=== PATIENT | female | born 1975 | race Caucasian/White ===

== ENCOUNTER 2020-11-20 06:56 | Day surgery (SDC) | payer OTHER, SELFPAY ==
--- NOTE | 2020-11-11 16:02 | PCM.HP.BLA ---
History and Physical Date of Admission: 11/20/20 HPI: The patient is a 45 year old female presenting for pre-operative visit. She is scheduled for hysteroscopy with endometrial ablation, for menorrhagia on 11/20/20. Procedure discussed along with risks, benefits and complications. Other alternatives discussed for management. Consent form signed? Yes. ? ? PAST MEDICAL HISTORY No past medical history on file. ? ? PAST SURGICAL HISTORY No past surgical history on file. ? ? CURRENT MEDICATIONS Current Outpatient Medications Medication Sig Dispense Refill ? norethindrone (AYGESTIN) 5 mg tablet Take 1 tablet TID until bleeding stops, the BID x 3 days, the daily x 3 days. (Patient not taking: Reported on 11/11/2020 ) 35 tablet 0 ? No current facility-administered medications for this visit. ? ? ALLERGIES: Amoxicillin ? PERSONAL HISTORY: SOCIAL HISTORY Social History ? Tobacco Use ? Smoking status: Never Smoker ? Smokeless tobacco: Never Used Substance Use Topics ? Alcohol use: Not on file ? Drug use: Not on file ? FAMILY HISTORY: FAMILY HISTORY No family history on file. ? REVIEW OF SYMPTOMS: GENERAL: denies fevers or chills ENDOCRINOLOGY: has not been on steroids Cardiology : denies palpitations or chest pain Respiratory: denies SOB or cough Hematology: denies history of prolonged bleeding or easy bruising or VTE Allergy: Denies history of personal or family history of allergy to anesthesia ? PHYSICAL EXAMINATION: ? VITALS: Last menstrual period 09/04/2020. ? GENERAL: The patient is well nourished, well hydrated in no acute distress. , The patient is oriented to time, place, and person. NECK: Supple. No lynphadenopathy, normal thyroid, no thyromegaly. LUNGS: Clear to auscultation bilaterally. no wheezes, rhonchi or rales HEART: Regular rate and rhythm, Normal heart sounds and No murmurs or gallops ? IMPRESSION: menorrhagia ? PLAN: The risks/benefits/alternatives and personal involved for the planned hysteroscopy with endometrial ablation were reviewed with the patient. Her questions were answered to her satisfaction and she desires to proceed. Consent was signed. I reviewed with her postop instructions and expectations. ? ? I have reviewed and updated past medical and surgical history, medications and allergies Assessment & Plan Assessment/Plan (1) Menorrhagia:
[2020-11-20 07:36] LABS: Hematocrit 42.9 % (37-47); Hemoglobin 14.6 g/dL (12.0-15.0); Mean Corpuscular Hgb 31.5 pg (27.0-32.0); Mean Corpuscular Volume 92.7 fL (81-99); Mean Platelet Vol. 11.3 fl (6.2-12.0); Platelet Count 223 K/mm3 (150-450); RBC Distribution Width CV 11.9 % (11.6-14.6); RBC Distribution Width SD 41.1 fl (35.1-43.9); Red Blood Count 4.63 M/mm3 (4.2-5.4); White Blood Count 7.6 K/mm3 (4.4-11.0)
[2020-11-20 07:38] VITALS: BP 129/75; PULSE 86; RESP 18; TEMP 36.6; O2SAT 99; BMI 34.7
[2020-11-20 07:38] LABS: Internal QC Validated? YES +Cl - CLEAR BKGD; Pregnancy, Urine Negative Negative
[2020-11-20] MEDS: Lactated Ringers 1,000 ML 100 ML IV (07:45)
--- NOTE | 2020-11-20 08:34 | PCM.OPRPT ---
Problems Associated Problem List Diagnoses (1) Menorrhagia: Report of Operation Date of Procedure: 11/20/20 Pre-Operative Diagnosis: menorrhagia Post-Operative Diagnosis: same Surgery/Procedure Performed:: Hysteroscopy with endometrial ablation with Gricel device Description of Surgical Findings:: Normal vagina, normal cervix, normal endometrial cavity. Surgeon: Rayna Sadler automatic corn grinder operator: arthur valdez Type of Anesthesia: MAC/Supplemental/Local Anesthesiologist: Tim Ledezma Special Medications: none Specimen's removed: none Drains: none Estimated Blood Loss (mL): 10 Fluids Replaced: 700 Description of Procedure: The patient was taken to the OR where she was prepped and draped in dorsal lithotomy position. The weighted speculum was placed in the vagina and the anterior lip of the cervix was grasped with a single-tooth tenaculum. A paracervical block was administered with [1% lidocaine with 1-100,000 epinephrine solution]. The cervix was dilated serially with Hegar dilators. The [5mm] hysteroscope was placed into the uterine cavity and the above findings were noted. Bilateral tubal ostia [were] identified. The uterus sounded to 8.5cm and the cervical length was 3.5cm. The endometrial cavity length was [5]cm. The hysteroscope was removed. The Gricel device was set to [5]cm. The instrument was then seated into the endometrial cavity and the indicator was in the green. The cervical seal balloon was inflated and the uterine integrity test was passed. The ablation procedure was initiated and completed without interruption. During the ablation procedure gentle traction was held on the tenaculum and the Gricel device was held up against the uterine fundus. When the ablation procedure was completed the Gricel was removed. The tenaculum was removed and the tenaculum site was noted to be hemostatic. All sponge and needle counts were correct. A vaginal sweep was performed by me. The patient was awakened and taken to the recovery room in stable condition. Hysteroscopic ins: 100cc normal saline Hysteroscopic outs:50cc Findings: Grafts/Implants Used: none Procedure Start Time: 08:46 Procedure Stop Time: 08:55 Complications none Admit VTE Documentation VTE Present on Admission: No VTE Mechan Device Prophylaxis: SCD's VTE Pharm Prophylaxis ordered?: No Reason prophylaxis not ordered:: Procedure Not Indicated
[2020-11-20] MEDS: Lidocaine 1%/Epi 1:200 (30ml) 30 ML AMPUL (08:46)
--- NOTE | 2020-11-20 08:57 | PCM.DC ---
Discharge Instructions Diet Discharge Diet: No restrictions Activity May resume sexual activity in: 2 weeks Lifting Restrictions: none Dressing / Incision Call your doctor if your incision/area has: Sudden Increased Bleeding and Foul Smelling Discharge Call your doctor if you observe: Fever of 101 or Higher and Using more than 1 pad per hour (for 2 hrs in a row) Additional Dressing/Incision Instructions:: You can use ibuprofen or acetaminophen as needed for pain control. Use a heating pad to the lower abdomen as needed for pain. Follow Up Care Please Follow Up With: Rayna Sadler MD When: 2-4 weeks or as needed. Call [phone] to make an appointment or with any concerns. Test Results: Test results from this visit will be discussed in further detail at your follow-up appointment, if applicable. Discharge Plan Admission Primary Reason for Your Visit: Endometrial ablation Attending Provider: Rayna Sadler Primary Care Provider: Luz Mcgraw Discharge Orders/Prescriptions Prescriptions: Continued multivitamin Capsule 3 cap PO DAILY RF: 0 Probiotic 1 tab DAILY RF: 0 Referrals / Follow Up: Luz Mcgraw MD [Primary Care Provider] - Disposition Disposition (needs filled in before D/C Order can be placed): Home, Self Care
[2020-11-20 09:04] VITALS: BP 121/70; BP 129/75; PULSE 89; RESP 16; TEMP 36.7; O2SAT 96
[2020-11-20 09:10] VITALS: BP 111/81; BP 129/75; PULSE 89; RESP 16; O2SAT 95
[2020-11-20 09:15] VITALS: BP 121/84; BP 129/75; PULSE 79; RESP 16; O2SAT 95
[2020-11-20 09:20] VITALS: BP 127/78; BP 129/75; PULSE 81; RESP 16; TEMP 36.4; O2SAT 97
[2020-11-20 10:00] VITALS: BP 129/75
[2020-11-20] MEDS: Acetaminophen 500 MG Tablet 1000 MG PO (10:01)
== END 2020-11-20 10:10 | disposition home or self-care (01) ==
LOC: SDC 06:57 → AC 06:59
PROVIDERS: PCP Internal Medicine; Referring Provider Obstetrics & Gynecology; Visit Provider Obstetrics & Gynecology
PROC: 0U5B8ZZ Destruction of Endometrium, Via Natural or Artificial Opening Endoscopic (ICD-10-PCS; CPT 58558; principal; 2020-11-20 08:15)
DX: N92.0 Excessive and frequent menstruation with regular cycle (principal)
CPT/HCPCS: 00952; 58563; 81025; 85027; J7120; J2405

== ENCOUNTER 2021-08-17 10:17 | Outpatient (CLI) | payer OTHER, SELFPAY ==
--- NOTE | 2021-08-17 10:27 | US_ITS ---
STUDY: RENAL ULTRASOUND - COMPLETE REASON FOR EXAM: Female, 45 years old. UTI TECHNIQUE: Ultrasound evaluation of the kidneys was performed with real-time and static cates-scale imaging. COMPARISON: None. FINDINGS: RIGHT KIDNEY: Normal location of the right kidney, which is normal in size. The right kidney measures 11.5 cm. There is a normal cortex of the right kidney. The renal cortex measures 2.2 cm. There is no right renal mass or cyst. There are no right renal calculi. There is no right hydronephrosis. DISTAL RIGHT URETER: There is non-visualization of the distal right ureter. There is no demonstrated right ureterovesical junction calculus. There is a visualized right ureteral jet. LEFT KIDNEY: Normal location of the left kidney, which is normal in size. The left kidney measures 11.4 cm. There is a normal cortex of the left kidney. The renal cortex measures 1.5 cm. There is no left renal mass or cyst. There are no left renal calculi. There is no left hydronephrosis. DISTAL LEFT URETER: There is non-visualization of the distal left ureter. There is no demonstrated left ureterovesical junction calculus. There is a visualized left ureteral jet. BLADDER: The distended urinary bladder has a volume of 156 ml. There is a normal wall thickness of the distended urinary bladder. There is no demonstrated mass within the urinary bladder. There are no demonstrated bladder calculi. US/Kidney and Bladder IMPRESSION: Normal ultrasound of the kidneys and urinary bladder. Electronically Signed: Jarrell Burrell DO at 16:50 EDT ,
== END 2021-08-17 23:59 | disposition home or self-care (01) ==
LOC: US 10:19
PROVIDERS: PCP Internal Medicine; Referring Provider Urology; Visit Provider Urology
DX: N39.0 Urinary tract infection, site not specified (principal)
CPT/HCPCS: 76770

== ENCOUNTER 2021-11-12 06:05 | Day surgery (SDC) | payer OTHER, SELFPAY ==
--- NOTE | 2021-11-11 15:08 | SUR.PREOP ---
spoke to Hanny at Dr Dugan office. She states that patient is not having Danny-C with procedure on 11/12/21
[2021-11-12 06:30] LABS: Internal QC Validated? YES +Cl - CLEAR BKGD; Pregnancy, Urine Negative Negative
[2021-11-12 06:48] VITALS: BP 135/82; PULSE 73; RESP 16; TEMP 36.6; O2SAT 100; BMI 32.9
[2021-11-12] MEDS: Lactated Ringers 1,000 ML 15 ML IV (06:54)
--- NOTE | 2021-11-12 07:30 | BLB_PTH ---
PATIENT: SHANNON LEYVA LOC: [facility] – [place] U#:[id number] AGE/SX: 46/F ROOM: RE11/12/[address]: Dr. Gwendolyn Snow MD : 1975 BED: DIS: 11/12/2021 SPEC #: [id number] RECD: 11/12/21 11:06 STATUS: MARTIN HELTON #: [id number] MARTA: 11/12/21 07:[address]: Gwendolyn Snow DEPT: SURGICAL PATHOLOGY RECD BY: Melvina Andrade ENTERED: 11/12/21 12:57 SP TYPE: TURB OTHR DR: Dr. Luz Mcgraw MD Tissues: Urinary bladder, NOS Procedures: Surgery Specimen Level V HEADER OPERATION: Cysto, biopsy bladder tumor, fulguration PRE-OP DIAGNOSIS: Neoplasm of bladder TISSUE SUBMITTED: Bladder tumor MICROSCOPIC DIAGNOSIS Bladder tumor, transurethral resection: Fragments of urothelial mucosa with focal squamous metaplasia and changes suggestive of squamous papilloma. Negative for atypia or malignancy. See comment. JOSÉ MIGUEL:barry 11/13/2021 COMMENT Correlation with clinical, cystoscopy findings and appropriate follow up are necessary. MICROSCOPIC DESCRIPTION Slides are reviewed. GROSS DESCRIPTION Received in fixative is one container labeled with the patient's name and designated bladder tumor. The specimen consists of two fragments each measuring 0.2 x 0.2 x 0.1 cm. The specimen is totally submitted in one cassette. / JOSÉ MIGUEL:barry 11/12/2021 TC:1 CPT:79498
[2021-11-12] MEDS: Cefazolin 2 GM in 0.9% Normal Saline 100 ML IV (07:50)
[2021-11-12 08:15] VITALS: BP 112/65; BP 135/82; PULSE 80; RESP 16; TEMP 36.6; O2SAT 94
--- NOTE | 2021-11-12 08:19 | DCINST_ITS ---
Discharge Instructions Diet Discharge Diet: No restrictions Activity Discharge Activity: Return to Normal Activity May resume sexual activity in: No Restrictions Dressing / Incision Call your doctor if you observe: Fever of 101 or Higher, Inability to urinate and Inability to have a bowel movement Follow Up Care Please Follow Up With: Gwendolyn Snow MD When: Call office for appointment to be seen next week Test Results: Test results from this visit will be discussed in further detail at your follow- up appointment, if applicable. Discharge Plan Admission Attending Provider: Gwendolyn Snow Primary Care Provider: Luz Mcgraw Discharge Orders/Prescriptions Prescriptions: New oxycodone-acetaminophen [oxycodone-acetaminophen] 5-325 mg tablet 2 tab PO Q8H PRN PRN (Reason: Pain) 2 Days Qty: 6 0RF cephalexin [cephalexin] 500 mg capsule 500 mg PO Q12 3 Days Qty: 6 0RF phenazopyridine [Pyridium] 200 mg tablet 200 mg PO TID PRN PRN (Reason: Bladder Spasms) 7 Days Qty: 30 0RF Continued multivitamin Capsule 3 cap PO DAILY Probiotic 1 tab DAILY cephalexin 250 mg capsule 250 mg PO PRN PRN (Reason: AFTER INTERCOURSE) Label Comments: TAKE 1 CAPSULE BY MOUTH ONCE DAILY IMMEDIATELY AFTER INTERCOURSE FOR 90 DAYS ivermectin [Soolantra] 1 % Cream 1 applic TOPICAL BID Winlevi 1 % Cream 1 applic TOPICAL BID Referrals / Follow Up: Luz Mcgraw MD [Primary Care Provider] - Disposition Disposition (needs filled in before D/C Order can be placed): Home, Self Care
--- NOTE | 2021-11-12 08:22 | PCM.OPRPT ---
Report of Operation Date of Procedure: 11/12/21 Pre-Operative Diagnosis: Bladder lesion of uncertain malignant potential Post-Operative Diagnosis: Same Surgery/Procedure Performed:: Cystoscopy with biopsy and fulguration Surgeon: Gwendolyn Snow Type of Anesthesia: General Specimen's removed: Bladder biopsy x2 Description of Procedure: The patient is a 46-year-old female who was evaluated with cystoscopy for urinary tract infections and found to have an area of white mucosal change consistent with possible squamous metaplasia. She now presents for biopsy for further evaluation. Informed consent has been obtained. The patient was taken to the operating room and placed on the operating room table. Anesthesia monitored the head, neck, airway, IV access and vital signs throughout the case. Once anesthesia was appropriate ministered the patient was placed into dorsal lithotomy position was prepped and draped in usual sterile fashion. The cystoscope was inserted through the urethra under direct visualization into the urinary bladder. The area of concern on the trigone just medial to the right ureteral orifice was once again identified. It is approximately 5 mm in size. This area was removed via flexible biopsy forceps. An area approximately 1 cm away towards the left ureteral orifice was minimally irregular and this area was biopsied as well. Both areas were fulgurated for hemostatic control and tissue treatment. The patient's bladder was then emptied and the case was terminated. She was awakened and taken to the recovery room in good condition. There were no complications during this procedure. Grafts/Implants Used: None Complications None Admit VTE Documentation VTE Present on Admission: Yes VTE Mechan Device Prophylaxis: SCD's VTE Pharm Prophylaxis ordered?: No Reason prophylaxis not ordered:: Treatment Not Indicated
[2021-11-12 08:30] VITALS: BP 108/66; BP 135/82; PULSE 75; RESP 16; O2SAT 98
[2021-11-12] MEDS: Phenazopyridine 95 MG Tablet 190 MG PO (08:37)
[2021-11-12 08:44] VITALS: BP 114/77; BP 135/82; PULSE 69; RESP 16; TEMP 36.4; O2SAT 98
[2021-11-12 09:35] VITALS: BP 122/70; BP 135/82; PULSE 74; RESP 18; TEMP 36.8; O2SAT 100
== END 2021-11-12 09:53 | disposition home or self-care (01) ==
LOC: SDC 06:05 → AC 06:06
PROVIDERS: Anesthesiology; PCP Internal Medicine; Referring Provider Urology; Visit Provider Urology
PROC: 0TBB8ZX Excision of Bladder, Via Natural or Artificial Opening Endoscopic, Diagnostic (ICD-10-PCS; CPT 52250; principal; 2021-11-12 07:20)
DX: N32.89 Other specified disorders of bladder (principal); N39.46 Mixed incontinence; N81.6 Rectocele; R35.1 Nocturia; Z87.440 Personal history of urinary (tract) infections
CPT/HCPCS: 52204; 81025; 88307; J7120; J2405

== ENCOUNTER → 2024-03-19 | Outpatient (CLI) | payer OTHER, SELFPAY ==
[2024-03-19 13:26] LABS: Vitamin B12 591 pg/mL (211-911); Vitamin D,25 Hydroxy 16.6 ng/mL
[2024-03-19 13:52] LABS: ALB/GLOB Ratio 0.9 RATIO (0.9-2.4); AST(SGOT) 20 U/L (15-37); Alanine Aminotransfer ALT/SGPT 33 U/L (13-56); Albumin, Serum 3.6 g/dL (3.2-5.0); Alkaline Phosphatase 98 U/L (45-117); Anion Gap 6 (5-15); BUN 8 mg/dL (7-18); BUN/Creat Ratio 11.6 RATIO (10-20); Calcium,Total 9.3 mg/dL (8.5-10.1); Chloride 106 mmol/L (98-107); Creatinine, Serum 0.69 mg/dL (0.55-1.02); EST Glomerular Filtration Rate 96 mL/min (>60); Est Glom Filt Rate - Afr Amer 117 mL/min (>60); Glucose 105 mg/dL (74-106); Potassium 4.1 mmol/L (3.5-5.1); Protein, Total 7.6 g/dL (6.4-8.2); Sodium Level 138 mmol/L (136-145); T4 Free Direct 1.06 ng/dL (0.76-1.46)
== END | disposition home or self-care (01) ==
PROVIDERS: PCP Internal Medicine; Referring Provider Nurse Practitioner Family; Visit Provider Nurse Practitioner Family
DX: N39.0 Urinary tract infection, site not specified (principal); Z12.31 Encounter for screening mammogram for malignant neoplasm of breast; N95.1 Menopausal and female climacteric states; Z13.29 Encounter for screening for other suspected endocrine disorder; Z13.21 Encounter for screening for nutritional disorder
CPT/HCPCS: 36415; 80053; 82306; 82607; 84439; 84443; 87086; 87088; 87186

== ENCOUNTER → 2024-04-13 | Outpatient (CLI) | payer OTHER, SELFPAY ==
--- NOTE | 2024-04-13 09:30 | BI_ITS ---
MAMMOGRAPHY - BILATERAL SCREENING REASON FOR EXAM: Female, 48 years old. Routine annual screening examination. PERTINENT HISTORY: Non-contributory. TECHNIQUE: Digital bilateral breast andree (3D mammographic acquisition) in the CC and MLO projections. 2-D mediolateral oblique (MLO) and craniocaudad (CC) views of both breasts were obtained. CAD: Full Field Digital Mammography with Computer Added Detection was performed. COMPARISON: Comparison is made with prior outside examination August 12, 2022. FINDINGS: Breast Composition: There are scattered areas of fibroglandular density. There are no dominant masses or suspicious calcifications. Stable benign-appearing bilateral axillary nodes. No other significant abnormalities are identified. There has been no significant change since the prior study. BI/SCRN MAMM (CAD)W/ANDREE BILAT IMPRESSION: Stable bilateral screening mammogram. Yearly follow-up mammogram recommended. (A) ASSESSMENT CATEGORY: BIRADS Category 2: Benign. A letter regarding these results will be sent to the patient by the facility within 30 days. Approximately 10% of breast cancers are not detected by mammography. A normal mammogram should not delay biopsy of a clinically suspicious abnormality. [id number] Electronically Signed: Reyes Magana MD at 12:26 EST ,
== END | disposition home or self-care (01) ==
PROVIDERS: Referring Provider Nurse Practitioner Family; Visit Provider Nurse Practitioner Family
DX: Z12.31 Encounter for screening mammogram for malignant neoplasm of breast (principal)
CPT/HCPCS: 77063; 77067

== ENCOUNTER → 2025-04-09 | Outpatient (CLI) | payer OTHER, SELFPAY ==
--- NOTE | 2025-04-09 13:03 | US_ITS ---
PROCEDURE: PELVIC W/ TRANSVAGINAL REASON FOR EXAM: PELVIC PAIN Post endometrial ablation. TECHNIQUE: Procedure Code: [id number] Modality: US Procedure: PELVIC W/ TRANSVAGINAL COMPARISON: None FINDINGS: Measurements: Uterus: 9.2 cm x 6.6 cm x 5 cm with a volume of 159.1 mL Endometrial Thickness: 9 mm. It is hyperechoic. Right Ovary: 4.3 cm x 2.1 cm x 2.4 cm with a volume of 11.6 mL. Left Ovary: 3 cm x 2.7 cm x 2.5 cm with a volume of 10.5 mL. TRANSABDOMINAL: Uterus: Heterogeneous echotexture of the uterus. There is a 1.4 cm 1.5 cm 1.9 cm fundal fibroid. Multiple small nabothian cysts are seen. Endometrium: 9 mm. It is hyperechoic Right ovary: Dominant follicle in the right ovary. Left ovary: Normal size and echotexture. Other: No large pelvic mass identified. Transvaginal sonography was performed to better visualize the endometrium. TRANSVAGINAL: Uterus: Anteverted. Fibroid uterus. Endometrium: Normal echotexture. Right ovary: Dominant follicle. Left ovary: Normal size and echotexture. Other adnexal findings: None. Cul-de-sac: No free intraperitoneal fluid identified. Tenderness: No tenderness US/Pelvic w/ Transvaginal IMPRESSION: Fibroid uterus. Dominant follicle is seen in the right ovary. Reading Location: [id number]
== END | disposition home or self-care (01) ==
LOC: US 12:57
PROVIDERS: Referring Provider Nurse Practitioner Family; Visit Provider Nurse Practitioner Family
DX: R10.20 Pelvic and perineal pain unspecified side (principal)
CPT/HCPCS: 76830; 76856

== ENCOUNTER → 2025-04-15 | Outpatient (CLI) | payer OTHER, SELFPAY ==
--- NOTE | 2025-04-15 10:30 | BI_ITS ---
EXAM: SCRN MAMM (CAD)W/ANDREE BILAT DATE: 04/15/2025 CLINICAL HISTORY: F, Age 49 y/o , SCREEN FOR BREAST CNACER TECHNIQUE: Procedure Code: [id number] Modality: MG Procedure: SCRN MAMM (CAD)W/ANDREE BILAT COMPARISON: Prior exam(s) were compared FINDINGS: TISSUE DENSITY: The breasts are heterogeneously dense, which may obscure small masses. Bilateral Breast Mammographic Findings: No significant masses, calcifications or other abnormalities are identified. BI/SCRN MAMM (CAD)W/ANDREE BILAT IMPRESSION: No mammographic evidence of malignancy in either breast. OVERALL FINAL ASSESSMENT BI-RADS 1: NEGATIVE.. RECOMMENDATION: Routine annual follow-up in 1 Year Additional Recommendation none A letter with findings and recommendations will be mailed to the patient. Reading Location: [id number]
--- OUTSIDE RECORDS SUMMARY | 2025-04-15 11:41 | XMS RPT_ITS | CCD ---
Author Organization [facility] [place] [facility] Care Team Providers Care Feed Mill Supervisor Name Role Phone [place]out [place], Luz S Unavailable Unavailable Trout Creek, Luz S Unavailable Unavailable Trout [place], Luz S Unavailable Unavailable [place]out [place], Luz S Unavailable Unavailable [place]out [place], Luz S Unavailable Unavailable [place]out [place], Luz S Unavailable Unavailable [place]out [place], Luz S Unavailable Unavailable [place]out [place], Luz S Unavailable Unavailable [place], Luz S Unavailable Unavailable Etienne, Alivia Unavailable Unavailable [place], Luz S Unavailable Unavailable Etienne, Alivia Unavailable Unavailable [place], Luz S Unavailable Unavailable [place]out [place], Luz S Unavailable Unavailable [place]out [place], Luz S Unavailable Unavailable [place]out [place], Luz S Unavailable Unavailable [place], Luz S Unavailable Unavailable [place]out [place], Luz S Unavailable Unavailable [place]out [place], Luz S Unavailable Unavailable [place], Luz S Unavailable Unavailable Thomae, Mega R Unavailable Unavailable Bocanegra, Lida C Unavailable Unavailable [place], Luz S Unavailable Unavailable Bocanegra, Lida C Unavailable Unavailable Etienne, Alivia Unavailable Unavailable Etienne, Alivia Unavailable Unavailable [place]out [place], Luz S Unavailable Unavailable Etienne, Alivia Unavailable Unavailable Etienne, Alivia Unavailable Unavailable [place], Luz S Unavailable Unavailable Bocanegra, Lida C Unavailable Unavailable [place], Luz S Unavailable Unavailable Thomae, Mega R Unavailable Unavailable [place], Luz S Unavailable Unavailable Unavailable Primary Care Provider Unavailabl e Trout [place], Luz Unavailable Katja James Unavailable Unavailable Bhavin Cody Unavailable Unavailable [place], Luz S Unavailable Jai Fuentes Unavailable Unavailable Unavailable Mr. Jai Fuentes Referring Unavail able Gina, Mr. Jai Linda Attending Unavail able Gina, Mr. Jai Linda Primary Care Unavail able Unavailable Primary Care Provider Unavailhawa e SHANNON HULL Attending Unavailable SHANNON HULL Referring Unavailable Newbill PA-C, Jai M Primary Care Provider Newbill PA-C, Jai M Unavailable Newbill PA-C, Jai M Unavailable Lenka MILITARY EQUIPMENT SPECIALIST-TIRE MECHANIC, Nila B Primary Care Provider LENKA, NILA B Attending Unavailable LENKA, NILA B Primary Care Unavailable LENKA, NILA B Primary Care Unavailable Lenka MILITARY EQUIPMENT SPECIALIST-TIRE MECHANIC, Nila B Primary Care Provider Lenka MILITARY EQUIPMENT SPECIALIST-TIRE MECHANIC, Nila B Unavailable Lenka MILITARY EQUIPMENT SPECIALIST-TIRE MECHANIC, Nila B Unavailable Lenka MILITARY EQUIPMENT SPECIALIST-TIRE MECHANIC, Nila B Primary Care Provider LENKA, NILA B Primary Care Unavailable BHAVIN CODY Attending Unavailable LENKA, NILA B Primary Care Unavailable BHAVIN CODY Attending Unavailable JAI FUENTES M Primary Care Unavailable ADELSO CULVER Attending Unavailable Care Physician, No Primary Primary Care Provider Unavailable Gwendolyn DELATORRE, Dr. Snow Attending Provider Care Physician, No Primary Referring Provider Un available Ayala Heart Attending Unavailable Care Physician, No Primary Primary Care Unava ilable Care Physician, No Primary Referring Unava ilable Ayala Heart Attending Unavailable Ayala Heart Referring Unavailable Care Physician, No Primary Primary Care Unava ilable Ayala Heart Attending Unavailable Ayala Heart Referring Unavailable Care Physician, No Primary Primary Care Unava ilable Gwendolyn Snow Attending Unavailable Care Physician, No Primary Primary Care Unava ilable Care Physician, No Primary Referring Unava ilable Ayala Heart Attending Unavailable Care Physician, No Primary Referring Unava ilable Care Physician, No Primary Primary Care Unava ilable Gwendolyn Snow Attending Unavailable Care Physician, No Primary Referring Unava ilable Care Physician, No Primary Primary Care Unava ilable Allergies Allergy Classification Reported Allergen(s) Allergy Type Date of Onset Reaction(s) Facility (20 sources) amoxicillin; Translations: [amoxicillin] Drug Allergy 8 [facility] Repository (4 sources) Penicillins Itching [facility] (4 sources) Amoxicillin; Translations: [Amoxicillin TABS] Drug Allergy [facility] Work Phone: (7 sources) NITROFURANTOIN, MACROCRYSTALS / Nitrofurantoin, Monohydrate; Translations: [NITROFURANTOIN MONOHYD/M-CRYST] Drug Allergy 4 Itching [facility] (1 source) Nitrofurantoin Drug Allergy [address] [facility] (1 source) Nitrofurantoin Drug Allergy 5 [facility] Repository Medications Current Medications Medication Drug Class(es) Dates Sig (Normalized) Sig (Original) [id number] 200 actuat albuterol 0.09 mg/actuat metered dose inhaler (5 sources) beta2-Adrenergic Agonist Start: 04-04-2024 End: 04-04-2025 take 2 puff(s) by inhalation every six hours for wheezing albuterol 90 mcg/actuation inhaler Indications: Acute bronchitis, unspecified organism Inhale 2 puffs every 6 hours if needed for wheezing. 18 g 04/04/2024 04/04/2025 Active Start: 09-05-2007 take 2 puff(s) by in halation every four hours as needed ALBUTEROL 90 MCG/ACTUATION AEROSOL INHALER Indications: Unspecified disease of respiratory system Two puffs every 4 hours as needed. 1 0 09/05/2007 Active Comment on above: Two puffs every 4 ho urs as needed. ascorbic acid 500 mg oral capsule (1 source) Vitamin C Start: 025 Ascorbic Acid (Vitamin C) 500 mg capsule Active mg PO January 15, 2025 12:00am azithromycin 250 mg oral tablet (4 sources) Macrolide Antimicrobial Start: 024 azithromycin (Zithromax Z-Michael) 250 mg tablet Indications: Acute bronchitis, unspecified organism Take 2 tablets by mouth at once on day 1, then 1 tablet once a day on days 2-5. Take with a meal. 6 tablet 03/29/2024 Active benzonatate 100 mg oral capsule (4 sources) Non-narcotic Antitussive Start: take 1-2 capsules by mouth every eight hours for cough benzonatate (Tessalon) 100 mg capsule Indications: Acute bronchitis, unspecified organism Take 1-2 capsules (100-200 mg) by mouth every 8 hours if needed for cough. Do not crush or chew. 60 capsule 03/29/2024 Active biotin 10 mg oral capsule (1 source) Start: Biotin 10,000 mcg capsule Active ug PO January 15, 2025 12:00am brompheniramine maleate 0.4 mg/ml / dextromethorphan hydrobromide 2 mg/ml / pseudoephedrine hydrochloride 6 mg/ml oral solution (3 sources) alpha-Adrenergic Agonist, Uncompetitive S-qqqlui-F-aspartate Receptor Antagonist, Sigma-1 Agonist Start: take 5 mL by mouth every four hours for cough brompheniramine-pse udoeph-DM (Bromfed DM) 2-30-10 mg/5 mL syrup Indications: Acute bronchitis, unspecified organism Take 5 mL by mouth every 4 hours if needed for allergies, congestion or cough. 120 mL 04/04/2024 Active cephalexin 250 mg oral capsule (16 sources) Cephalosporin Antibacterial Start: take 1 capsule by mouth at bedtime Cephalexin 250 mg capsule Active 250 mg PO AT BEDTIME January 15, 2025 12:00am Start: 06-01-2022 take 1 capsule by mo ut three times daily cephALEXin (KEFLEX) 500 mg capsule Take 500 mg by mouth three times daily. 0 06/01/2022 Active Start: 11-12-2021 End: 03-19-2024 take 1 capsule by mouth every twelve hours Cephalexin 500 mg capsule Discontinued 500 mg PO EVERY 12 HOURS 6 3 0 November 12, 2021 12:00am March 19, 2024 11:03am post-operative Start: 11-02-2021 End: 03-19-2024 Cephalexin 250 mg capsule Discontinued 250 mg PO NEEDED as needed for AFTER INTERCOURSE November 02, 2021 12:00am March 19, 2024 11:03am take 1 capsule by mo uth every twenty-four hours as needed cephalexin (Keflex) 250 mg capsule Take 1 capsule (250 mg) by mouth once daily as needed (preventative for UTI). Active Comment on above: Take 500 mg by mouth three times daily. Take 250 mg by mouth four times daily. cholecalciferol 0.025 mg oral capsule (6 sources) Vitamin D Start: 01-16-20 take 1 capsule by mouth once daily Cholecalciferol (Vitamin D3) 25 mcg (1,000 unit) capsule Active 25 ug PO daily January 15, 2025 12:00am Start: 06-17-2022 VITAMIN D 25 m cg (1,000 unit) cap Start: 03-22-2022 take 1 capsule by mouth once d aily Vitamin D (Cholecalciferol) 25 MCG (1000 UT) Oral Capsule TAKE 1 CAPSULE BY MOUTH EVERY DAY Quantity: 90 Refills: 3 Ordered: 22-Mar-2022 Jai Fuentes PA-C Start : 22-Mar-2022 Active Clascoterone (2 sources) Start: 11-02-2021 Clascoterone ( Winlevi) 1 % Cream Active 1 NMA TOPICAL TWICE A DAY November 02, 2021 12:00am Start: 11-02-2021 Clascoterone ( Winlevi) 1 % Cream Active 1 APPLIC TOPICAL TWICE A DAY November 02, 2021 12:00am clascoterone (Winlevi) 1 % c ream (7 sources) clascoterone (Wi nlevi) 1 % cream Apply topically 2 times a day. Active clascoterone (Wi nlevi) 1 % cream Apply topically 2 times a day. 0 Active D-Mannose (1 source) Start: 01-15-2025 take 1 capsule by mouth once D-Mannose 500 mg capsule Active mg PO January 15, 2025 12:00am dextromethorphan hydrobromide 3 mg/ml / promethazine hydrochloride 1.25 mg/ml oral solution (4 sources) Phenothiazine, Uncompetitive G-qsiknt-V-aspartat e Receptor Antagonist, Sigma-1 Agonist Start: 03-29-2024 take 5 mL by mouth every six hours for cough promethazine-DM (Phenergan-DM) 6.25-15 mg/5 mL syrup Indications: Acute bronchitis, unspecified organism Take 5 mL by mouth every 6 hours if needed for cough. *caution - can cause drowsiness* 120 mL 03/29/2024 Active doxycycline monohydrate 100 mg oral tablet (2 sources) Tetracycline-class Drug Start: 08-08-2024 End: 08-15-2024 take 1 tablet by mouth twice daily doxycycline (Adoxa) 100 mg tablet Indications: Acute non-recurrent maxillary sinusitis Take 1 tablet (100 mg) by mouth 2 times a day for 7 days. Take with a full glass of water and do not lie down for at least 30 minutes after 14 tablet 08/08/2024 08/15/2024 Active Start: 04-06-2024 End: 04-13-2024 doxycycline (Vibramycin) 100 mg capsule Indications: Bronchitis Take 1 capsule (100 mg) by mouth 2 times a day for 7 days. Take with at least 8 ounces (large glass) of water, do not lie down for 30 minutes after 14 capsule 04/06/2024 04/13/2024 Active estradiol 0.1 mg/ml vaginal cream (5 sources) Estrogen Start: 01-15-2025 Estradiol 0.01 % (0.1 mg/gram) cream Active 1 g VAGINAL 3 TIMES A WEEK 42.5 3 January 15, 2025 8:24am Start: 01-15-2025 End: 01-15-2025 Estradiol 0.01 % (0.1 mg/gra m) cream Discontinued 1 VAGINAL 3 TIMES A WEEK January 15, 2025 12:00am January 15, 2025 8:24am Start: 03-28-2024 estradiol (Est race) 0.01 % (0.1 mg/gram) vaginal cream Insert 0.5 Applicatorfuls (2 g) into the vagina once daily. 03/28/2024 Active fluconazole 150 mg oral tablet (3 sources) Azole Antifungal Start: 12-08-2024 End: 12-12-2024 fluconazole (Diflucan) 150 mg tablet Indications: Acute cystitis with hematuria Take 1 tablet (150 mg) by mouth every 3 days for 2 doses. 2 tablet 12/08/2024 12/12/2024 Active Start: 06-18-2022 fluconazole (D IFLUCAN) 150 mg tablet Indications: Yeast vaginitis Take 1 tablet by mouth as directed. take one, repeat in 3 days as needed for yeast infections 4 tablet 2 06/18/2022 Active Comment on above: Take 1 tablet by brisa th as directed. take one, repeat in 3 days as needed for yeast infections ivermectin 10 mg/ml topical cream (16 sources) Antiparasitic, Pediculicide Start: 03-19-2024 Ivermectin (Soolantra) 1 % cream Active 1 NMA TOPICAL daily March 19, 2024 12:00am Start: 03-01-2022 Soolantra 1 % External Cream topically used twice a day for acne Quantity: 1 Refills: 3 Ordered: 01-Mar-2022 Jai Fuentes PA-C Start : 01-Mar-2022 Active Start: 11-02-2021 End: 03-19-2024 SOOLANTRA 1 % APPLY TO THE F VALERIE TWICE A DAY 0 05/21/2022 Active Comment on above: APPLY TO THE FACE TW ICE A DAY methenamine hippurate 1000 mg oral tablet (1 source) Start: 01-15-2025 Methenamine Hippurate 1 gram tablet Active 1 g PO TWICE A DAY 180 3 January 15, 2025 12:00am Multivitamin preparation (6 sources) Start: 11-20-2020 take 3 capsules by mouth once daily Multivitamin Active 3 CAP PO DAILY November 20, 2020 7:35am Start: 11-20-2020 take 3 capsules by m outh once daily Multivitamin Active 3 CAP PO DAILY November 20, 2020 12:00am Multi Vitamin+ Q uantity: 0 Refills: 0 Ordered: 04-Mar-2021 Bina Alvarado Generic Substitution Allowed nitrofurantoin, macrocrystals 25 mg / nitrofurantoin, monohydrate 75 mg oral capsule (1 source) Nitrofuran Antibacterial Start: 07-28-2021 End: 08-03-2021 take 1 capsule by mouth twice daily at mealtime Macrobid 100 mg oral capsule ; 1 cap(s) orally 2 times a day Quantity: 14 Refills: 0 Ordered: 28-Jul-2021 Bhavin Cody Start: 28-Jul-2021 End: 03-Aug-2021 Generic Substitution Allowed Comments: Finish all this medication unless otherwise directed by prescriber.May discolor urine or feces.Take with food or milk. Comment on above: Finish all this medi cation unless otherwise directed by prescriber.May discolor urine or feces.Take with food or milk. predniSONE 20 mg oral tablet (9 sources) Start: 08-08-2024 End: 08-13-2024 take 1 tablet by mouth once daily predniSONE (Deltasone) 20 mg tablet Indications: Acute non-recurrent maxillary sinusitis Take 1 tablet (20 mg) by mouth once daily for 5 days. 5 tablet 08/08/2024 08/13/2024 Active Start: 03-29-2024 take 6 tablets by mo ut once daily, then take 5 tablets by mouth once daily, then take 4 tablets by mouth once daily, then take 3 tablets by mouth once daily, then take 2 tablets by mouth once daily, then take 1 tablet by mouth once daily predniSONE (Deltasone) 10 mg tablet Indications: Acute bronchitis, unspecified organism Take 6 tabs PO daily x1 day, then take 5 tabs daily x1 day, then take 4 tabs daily x1 day, then take 3 tabs daily x1 day, then take 2 tabs daily x1 day, then take 1 tab daily x1 day. Take with a meal. 21 tablet 03/29/2024 Active Start: 03-01-2022 take 1 tablet by brisa twice daily predniSONE 20 MG Oral Tablet TAKE 1 TABLET TWICE DAILY. Quantity: 14 Refills: 1 Ordered: 01-Mar-2022 Jai Fuentes PA-C Start : 01-Mar-2022 Active Probiotic (3 sources) Start: 11-20-2020 Probiotic Acti ve 1 TABLET DAILY November 20, 2020 7:35am Start: 11-20-2020 Probiotic Acti ve 1 {tbl} DAILY November 20, 2020 12:00am Start: 11-20-2020 Probiotic Acti ve 1 TABLET DAILY November 20, 2020 12:00am sulfamethoxazole 800 mg / trimethoprim 160 mg oral tablet (7 sources) Dihydrofolate Reductase Inhibitor Antibacterial, Sulfonamide Antimicrobial Start: 12-08-2024 End: 12-15-2024 take 1 tablet by mouth twice daily sulfamethoxazole-trimethoprim (Bactrim DS) 800-160 mg tablet Indications: Acute cystitis with hematuria Take 1 tablet by mouth 2 times a day for 7 days. 14 tablet 12/08/2024 12/15/2024 Active Start: 06-23-2021 End: 06-29-2021 take 1 tablet by mouth twice daily Bactrim DS 800 mg-160 mg oral tablet ; 1 tab(s) orally 2 times a day Quantity: 14 Refills: 0 Ordered: 23-Jun-2021 Bhavin Cody Start: 23-Jun-2021 End: 29-Jun-2021 Status: Other Generic Substitution Allowed Comments: Avoid prolonged or excessive exposure to direct and/or artificial sunlight while taking this medication.Finish all this medication unless otherwise directed by prescriber.Medication should be taken with plenty of water. Start: 03-04-2021 End: 03-10-2021 take 1 tablet by mouth twice daily Bactrim DS 800 mg-160 mg oral tablet ; 1 tab(s) orally 2 times a day Quantity: 14 Refills: 0 Ordered: 04-Mar-2021 Katja James Start: 04-Mar-2021 End: 10-Mar-2021 Status: Other Generic Substitution Allowed Comments: Avoid prolonged or excessive exposure to direct and/or artificial sunlight while taking this medication.Finish all this medication unless otherwise directed by prescriber.Medication should be taken with plenty of water. Comment on above: Avoid prolonged or e xcessive exposure to direct and/or artificial sunlight while taking this medication.Finish all this medication unless otherwise directed by prescriber.Medication should be taken with plenty of water. Completed/Discontinued Medications Medication Drug Class(es) Dates Sig (Normalized) Sig (Original) acetaminophen 325 mg / oxyCODONE hydrochloride 5 mg oral tablet (2 sources) Opioid Agonist Start: 11-12-2021 End: 03-19-2024 Oxycodone-Acetamino phen 5-325 mg tablet Discontinued 2 {tbl} PO EVERY 8 HOURS NEEDED as needed for Pain 6 2 0 November 12, 2021 March 19, 2024 11:03am Lesion of urinary bladder Bladder disorder, unspecified Start: 11-12-2021 take 2 tablets by [facility] every eight hours as needed Oxycodone-Acetaminophen Active 2 TABLET PO EVERY 8 HOURS NEEDED 6 2 November 12, 2021 ciprofloxacin 500 mg oral tablet (3 sources) Quinolone Antimicrobial Start: 04-10-2021 End: 04-19-2021 take 1 tablet by mouth twice daily Cipro 500 mg oral tablet ; 1 tab(s) orally 2 times a day Quantity: 20 Refills: 0 Ordered: 10-Apr-2021 Bhavin Cody Start: 10-Apr-2021 End: 19-Apr-2021 Status: Other Generic Substitution Allowed Comments: Avoid prolonged or excessive exposure to direct and/or artificial sunlight while taking this medication.Check with your doctor before becoming .Do not take dairy products, antacids, or iron preparations within one hour of this medication.Finish all this medication unless otherwise directed by prescriber.Medication should be taken with plenty of water. Comment on above: Avoid prolonged or e xcessive exposure to direct and/or artificial sunlight while taking this medication.Check with your doctor before becoming .Do not take dairy products, antacids, or iron preparations within one hour of this medication.Finish all this medication unless otherwise directed by prescriber.Medication should be taken with plenty of water. clascoterone 1 % crea (2 sources) Start: 11-02-2021 clascoterone 1 % crea Apply to affected area. 0 11/02/2021 Active Comment on above: Apply to affected ar ea. famotidine 20 mg oral tablet (6 sources) Histamine-2 Receptor Antagonist Start: 03-01-2022 take 1 tablet by mouth every twelve hours famotidine (PEPCID) 20 mg tablet Take 20 mg by mouth q 12 HR. 0 03/01/2022 Active Start: 03-01-2022 take 1 tablet by brisa th once daily Famotidine 20 MG Oral Tablet TAKE 1 TABLET EVERY 12 HOURS DAILY. Quantity: 14 Refills: 1 Ordered: 01-Mar-2022 Jai Fuentes PA-C Start : 01-Mar-2022 Active Comment on above: Take 20 mg by mouth q 12 HR. gadoterate meglumine (Dotarem) 0.5 mmol/mL contrast injection 18 mL (2 sources) Star t: 02-28 23 End: 02-28 gadoterate meglumine (Dotarem) 0.5 mmol/mL contrast injection 18 mL hydrOXYzine hydrochloride 25 mg oral tablet (4 sources) Antihistamine Star t: 08-16 take 1 tablet by mouth three to four times daily as needed hydrOXYzine HCl - 25 MG Oral Tablet TAKE 1 TABLET 3 TO 4 TIMES DAILY NEEDED FOR ITCHING. Quantity: 20 Refills: 0 Ordered: 01-Mar-2022 Jai Fuentes PA-C Start : 01-Mar-2022 Active methylPREDNISolone 125 mg injection (1 source) Corticosteroid Star t: 1008-16 22 inject 1 mg by intramuscular injection once methylPREDNISolone Sodium Succ 125 MG Injection Solution Reconstituted INJECT 1 MG Intramuscular once Quantity: 0 Refills: 0 Ordered: 01-Mar-2022 Jai Fuentes PA-C Start : 01-Mar-2022 Complete Multivitamin Capsule (1 source) Star t: 10-29 21 End: 12-28 25 Multivitamin Capsule Discontinued 3 NMA PO DAILY November 20, 2020 12:00am January 15, 2025 8:07am phenazopyridine hydrochloride 200 mg oral tablet (2 sources) Star t: 10-28 22 End: 02-28 24 take 1 tablet by mouth three times daily as needed for muscle spasms Phenazopyridine (Pyridium) 200 mg tablet Discontinued 200 mg PO 3 TIMES DAILY NEEDED as needed for Bladder Spasms 30 7 0 November 12, 2021 12:00am March 19, 2024 11:03am Winlevi 1 % External Cream (4 sources) Star t: 100 08-16 22 Winlevi 1 % External Cream topically twice a day for acne Quantity: 1 Refills: 3 Ordered: 01-Mar-2022 Jai Fuentes PA-C Start : 01-Mar-2022 Active Problems Active Problems Problem Classification Problem Date Documented Date Episodic/Chronic Abdominal pain (7 sources) Pain in female pelvis; Translations: [Unspecified symptom associated with female genital organs] Episodic Allergic reactions (4 sources) Idiopathic urticaria; Translations: [Idiopathic urticaria] Episodic Blindness and vision defects (3 sources) Eye / vision finding; Translations: [Unspecified visual disturbance] 03-07-2023 Episodic Chronic obstructive pulmonary disease and bronchiectasis (3 sources) Bronchitis; Translations: [Bronchitis, not specified as acute or chronic] Onset: 04-06-2024 04-06-2024 Episodic Conditions associated with dizziness or vertigo (3 sources) Dizziness; Translations: [Dizziness and giddiness] 03-07-2023 Episodic Genitourinary symptoms and ill-defined conditions (7 sources) Incontinence; Translations: [Mixed incontinence (male) (female)] Chronic Genitourinary symptoms and ill-defined conditions (10 sources) Dysuria; Translations: [Dysuria] Onset: 12-08-2024 12-08-2024 Episodic Menopausal disorders (1 source) Menopausal syndrome; Translations: [Menopausal and female climacteric states] 03-19-2024 Chronic Menstrual disorders (4 sources) Menorrhagia; Translations: [Excessive and frequent menstruation with regular cycle] 11-11-2020 Chronic Mycoses (1 source) Candidiasis of vagina; Translations: [Yeast vaginitis] Episodic Nutritional deficiencies (3 sources) Vitamin D deficiency; Translations: [Unspecified vitamin D deficiency] Chronic Other diseases of bladder and urethra (2 sources) Lesion of bladder; Translations: [Bladder disorder, unspecified] 11-12-2021 Chronic Other diseases of bladder and urethra (3 sources) Other specified disorders of bladder; Translations: [Other specified disorders of bladder] Onset: 01-15-2025 01-15-2025 Chronic Comment on above: squamous metaplasia Other inflammatory condition of skin (4 sources) Rosacea; Translations: [Rosacea] Chronic Other nervous system disorders (3 sources) Impairment of balance; Translations: [Other abnormalities of gait and mobility] 03-07-2023 Episodic Other screening for suspected conditions (not mental disorders or infectious disease) (4 sources) Patient encounter status; Translations: [Encounter for screening mammogram for malignant neoplasm of breast] Onset: 08-12-2022 Episodic Residual codes; unclassified (3 sources) Memory impairment; Translations: [Other amnesia] 03-07-2023 Episodic Unclassified (1 source) Cancer cervix screening status; Translations: [Screening for cervical cancer] Unclassified (3 sources) Patient encounter status; Translations: [Encounter for screening for human papillomavirus (HPV)] Unclassified (2 sources) BURNING AND PAIN WITH URINATION 03-04-2021 Comment on above: BURNING AND PAIN WIT H URINATION Unclassified (2 sources) PAIN W/URINATION 06-23-2021 Comment on above: PAIN W/URINATION Unclassified (2 sources) BURNING W/URINATION 07-28-2021 Comment on above: BURNING W/URINATION Unclassified (2 sources) Pelvic and perineal pain unspecified side; Translations: [Pelvic and perineal pain unspecified side] Onset: 03-29-2025 Urinary tract infections (9 sources) Recurrent urinary tract infection; Translations: [Urinary tract infection, site not specified] Onset: 12-08-2024 03-07-2023 Episodic Past or Other Problems Problem Classification Problem Date Documented Da te Episodic/Chronic Acute bronchitis (3 sources) Acute bronchitis; Translations: [Acute bronchitis, unspecified] Onset: 03-29-2024 03-29-2024 Episodic Other skin disorders (4 sources) H/O: skin disorder; Translations: [Personal history of diseases of skin and subcutaneous tissue] Resolved: 03-01-2022 Episodic Other upper respiratory infections (5 sources) Upper respiratory infection; Translations: [Acute maxillary sinusitis] Onset: 08-08-2024 04-10-2021 Episodic Comment on above: URI Unclassified (7 sources) Onset: 03-07-2023 Resolved: 04-06-2024 03-07-2023 Results Test Name Value Interpretation Reference Range Facility Office Visit Reporton 2024 Office Visit Report [facility] [address] [place] [address] OFFICE VISIT Date of Service: 04/09/25 MR#: [id number] Acct: [id number] Patient: SHANNON TEJADA Rep #: [id number] : 1975 Provider: Dr. Gwendolyn Ash i, MD Age/Sex: 49/F [place] [facility] [email or web address] Status: Signed Intake Vital Signs 03/29/25 15:40 Height 5 ft 4 in Weight: 207 lb 3 oz BMI 35.5 BP 142/73 H Intake Visit Reasons: Urinary tract infection Chief Complaint: UTI follow up, some sx today Allergies amoxicillin Allergy (Verified 03/29/25 15:52) Itching nitrofurantoin (From Macrobid) Allergy (Verified 03/29/25 15:52) Hives Results POC UA Auto w/o Microscopy Office Urine Color YELLOW Last Edit by Brooke aMncilla on 04/09/25 16:29 Office Urine Clarity Last Edit by Brooke Mancilla on 04/09/25 16:29 Office Urine Glucose Negative Last Edit by Brooke Mancilla on 04/09/25 16:29 Office Urine Ketones Negative Last Edit by Brooke Mancilla on 04/09/25 16:29 Office Urine Bilirubin Negative Last Edit by Brooke Mancilla on 04/09/25 16:29 Office Urine Urobilinogen 0.2 mg/dL Last Edit by Brooke Mancilla on 04/09/25 16:29 Off Ur Spec Plessis 1.015 Last Edit by Brooke Mancilla on 04/09/25 16:29 Office Urine pH 6 Last Edit by Brooke Mancilla on 04/09/25 16:29 Office Urine Protein Negative Last Edit by Brooke Mancilla on 04/09/25 16:29 Office Urine Blood Trace Last Edit by Brooke Mancilla on 04/09/25 16:29 Office Urine Blood Hemolyzed Last Edit by Brooke Mancilla on 04/09/25 16:29 Office Urine Nitrate Negative Last Edit by Brooke Mancilla on 04/09/25 16:29 Off Ur Leukocytes Positive Last Edit by Brooke Mancilla on 04/09/25 16:29 70 Yoana/uL Brooke Mancilla 04/09/25 16:29 Nursing Note Patient was near by and wanted to drop off urine specimen. She has had some burning and frequency going on for a couple of days. UA and C S was completed, thank you. Assessment and Plan Assessment and Plan (1) UTI (urinary tract infection): Status: Acute Orders: Orders POC UA Auto w/o Microscopy 04/09/25 N39.0 - Urinary tract infection, site not specified 04/10/25 0908 Date Gwendolyn South Signature: Date (if applicable) CC: Normal [facility] Pelvic w/ Transvaginalon Pelvic w/ Transvaginal [facility] Imaging Services [address] [place], [place] [id number] Pelvic w/ Transvaginal MR#: [id number] Acct: [id number] Name: AUTUMNSHANNON Rep #: [id number] : 1975 F 49 From: Reyes posey MD PCP: Care Physician,No Primary Status: REG CLI Study: Pelvic w/ Transvaginal Date of Exam: 04/09/25 Exam# [id number] Ordering Dr: Ayala Heart PROCEDURE: PELVIC W/ TRANSVAGINAL REASON FOR EXAM: PELVIC PAIN Post endometrial ablation. TECHNIQUE: Procedure Code: USPELTVAG Modality: US Procedure: PELVIC W/ TRANSVAGINAL COMPARISON: None FINDINGS: Measurements: Uterus: 9.2 cm x 6.6 cm x 5 cm with a volume of 159.1 mL Endometrial Thickness: 9 mm. It is hyperechoic. Right Ovary: 4.3 cm x 2.1 cm x 2.4 cm with a volume of 11.6 mL. Left Ovary: 3 cm x 2.7 cm x 2.5 cm with a volume of 10.5 mL. TRANSABDOMINAL: Uterus: Heterogeneous echotexture of the uterus. There is a 1.4 cm 1.5 cm 1.9 cm fundal fibroid. Multiple small nabothian cysts are seen. Endometrium: 9 mm. It is hyperechoic Right ovary: Dominant follicle in the right ovary. Left ovary: Normal size and echotexture. Other: No large pelvic mass identified. Transvaginal sonography was performed to better visualize the endometrium. TRANSVAGINAL: Uterus: Anteverted. Fibroid uterus. Endometrium: Normal echotexture. Right ovary: Dominant follicle. Left ovary: Normal size and echotexture. Other adnexal findings: None. Cul-de-sac: No free intraperitoneal fluid identified. Tenderness: No tenderness US/Pelvic w/ Transvaginal IMPRESSION: Fibroid uterus. Dominant follicle is seen in the right ovary. Reading Location: [id number] CC: ÁNGEL-Dilma Heart; No Primary Care Physician Partner Management Consultant: Signed Normal [facility] Prefabricated Houses Trimmer Office Visit Reporton 03-29-2025 Prefabricated Houses Trimmer Office Visit Report [facility] [address], [address] [place] [address] OFFICE VISIT Date of Service: 03/29/25 MR#: [id number] Acct: [id number] Name: SHANNON TEJADA Rep #: [id number] : 1975 Provider: RHETT Bruner Age/Sex: 49/F Location: [facility] [place] Status: Signed with Addenda ADDENDUM by RHETT Heart on 04/10/25 at 1333 Assessment and Plan Assessment and Plan (1) Menorrhagia: Status: Acute (2) Pelvic pain: Status: Acute (3) Climacteric: Status: Acute Plan: Experiencing significant mood changes prior to her menses; will try cyclic zoloft low dose and see if this can be helpful for her. follow up 12 weeks med check Orders: Orders SCRN MAMM (CAD)W/ANDREE BILAT 1 Year Z12.31 - Encounter for screening mammogram for malignant neoplasm of breast Pelvic w/ Transvaginal 04/09/25 R10.20 - Pelvic and perineal pain unspecified side Medications: New sertraline (Zoloft) Take once a day 2 weeks prior to approx menses start. 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: No Is patient in pain?: No Allergies amoxicillin Allergy (Verified 03/29/25 15:52) Itching nitrofurantoin (From Macrobid) Allergy (Verified 03/29/25 15:52) Hives Medications ???Medication ???Instructions ???Recorded ???Confirmed ???Type Probiotic 1 tab DAILY 11/20/20 03/29/25 Hist ory clascoterone 1 % topical cream 1 applic topical BID 11/02/2103/01 History (Winlevi) ivermectin 1 % topical cream 1 applic topical QDAY 03/19/24 History (Soolantra) ascorbic acid (vitamin C) 500 mg mg PO 01/15/25 03/29/25 History capsule biotin 10,000 mcg capsule mcg PO 01/15/25 03/29/25 History cephalexin 250 mg capsule 250 mg PO QHS 01/15/25 03/29/25 Hi story cholecalciferol (vitamin D3) 25 25 mcg PO QDAY 01/15/25 03/29/25 H istory mcg (1,000 unit) capsule d-mannose 500 mg capsule mg PO 01/15/25 03/29/25 History estradiol 0.01% (0.1 mg/gram) 1 g vaginal 3XW #42.5 grams 03/29/25 Rx vaginal cream methenamine hippurate 1 gram tablet 1 g PO BID #180 tabs 01/15/25 1 Rx Is last menstrual period known: Yes Last Menstrual Period: 03/29/25 Post menopausal: No Patient : No : No PFSH Medical History Urgency of micturition Frequency of urination Other specified disorders of bladder Lesion of bladder History of toe fracture Restless legs Back pain Heartburn Non-smoker Surgical History History of hysteroscopy Hx of wisdom tooth extraction Hx laparoscopic cholecystectomy Family History Other Diabetes Heart disease Social History Smoking Status: Never smoker alcohol intake: never substance use type: does not use HPI Encounter for routine gynecological examination Details: SHANNON TEJADA is a 49 year old who presents for annual exam. She reports the last 2 months she has had heavier periods and cramping. She reports she has noted sharp pains in pelvis/pubic bone area; hx ablation. Reports this pain has happen with her menses and without menses( skipped period but pain was around time she should have started). See urology for recurrent UTI; taking methenamine. Denies current symptoms of UTI today. Currently on menses starting today. Last PAP: 2020; normal. HPV neg per records. History of abnormal PAP: no Last mammogram: 2023; normal History of abnormal mammogram: no Colon cancer screening: due Other preventative health care screenings: PCP: Female Reproductive History Last Menstrual Period: 03/29/25 Questions: metrorrhagia: No, sexually active: Yes (vasectomy. ), dyspareunia: No and PCB: No ROS Const Constitutional: Denies chills, fatigue, fever(s), headache(s), weight gain or weight loss Eyes Eyes: Denies change in vision ENT ENT: Denies dizziness Cardio Card: Denies chest pain Resp Resp: Denies cough or dyspnea GI GI: Denies abdominal pain, constipation, nausea or vomiting : Reports pelvic pain; Denies difficulty voiding, dysuria, hematuria, nipple discharge, prolapse symptoms, urinary frequency, urinary incontinence, urinary urgency, vaginal discharge, vaginal dryness, vaginal odor or vaginal pruritus Skin Skin/Breast: Denies alopecia, new lesions, rash, breast mass, breast pain, breast skin changes or nipple discharge Neuro Neuro (more content not included)... Normal [facility] MR/BMS.GENA 01-15-2025 MR/BMS.GENA [facility] [address], [address] [place] [address] OFFICE VISIT Date of Service: 01/15/25 MR#: [id number] Acct: [id number] Name: SHANNON TEJADA Rep #: [id number] : 1975 Provider: Dr. Gwendolyn Ash i, MD Age/Sex: 49/F [place] [facility] [place]: Signed Intake Vital Signs 03/19/24 09:47 01/15/25 08:09 Height 5 ft 4 in 5 ft 4 in Weight: 209 lb BMI 35.9 BP 115/79 Pulse 75 Intake Visit Reasons: uti sx Chief Complaint: UTI follow up, some sx today Agency Manager Required: No Accompanied by: self Is patient in pain?: Yes (sharp pain in pelvis ) Pain scale (1-10): 7 Allergies amoxicillin Allergy (Verified 01/15/25 08:05) Itching nitrofurantoin (From Macrobid) Allergy (Verified 01/15/25 08:05) Hives Medications ???Medication ???Instructions ???Recorded ???Confirmed ???Type Probiotic 1 tab DAILY 11/20/20 11/02/21 Hist ory clascoterone 1 % topical cream 1 applic topical BID 11/02/21 10/06/22 History (Winlevi) ivermectin 1 % topical cream 1 applic topical QDAY 03/19/24 History (Soolantra) ascorbic acid (vitamin C) 500 mg mg PO 01/15/25 01/15/25 History capsule biotin 10,000 mcg capsule mcg PO 01/15/25 01/15/25 History cephalexin 250 mg capsule 250 mg PO QHS 01/15/25 01/15/25 Hi story cholecalciferol (vitamin D3) 25 25 mcg PO QDAY 01/15/25 01/15/25 H istory mcg (1,000 unit) capsule d-mannose 500 mg capsule mg PO 01/15/25 01/15/25 History estradiol 0.01% (0.1 mg/gram) 1 g vaginal 3XW #42.5 grams 01/15/25 Rx vaginal cream methenamine hippurate 1 gram tablet 1 g PO BID #180 tabs 01/15/25 0 01/15/25 Rx Nurse's Note: started tuesday with sharp pelvic pain PFSH Medical History Urgency of micturition Frequency of urination Other specified disorders of bladder Lesion of bladder History of toe fracture Restless legs Back pain Heartburn Non-smoker Surgical History History of hysteroscopy Hx of wisdom tooth extraction Hx laparoscopic cholecystectomy Family History Other Diabetes Heart disease Social History Smoking Status: Never smoker alcohol intake: never substance use type: does not use HPI HPI Urology Chief Complaint: UTI follow up, some sx today Details: SHANNON TEJADA, is a 49 F. 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 She is tired. She is here for a possible acute urinary tract infection. Symptoms of an infection started about 2-3 days ago. She used her start therapy over the summer and that resolved. Then last week on Tuesday symptoms returned. Mostly it is a sharp very low suprapubic pain. There is no fever, chills, nausea, vomiting, or hematuria. She is still taking estrogen cream when she remembers, vitamin C, probiotics and D-mannose. She is taking her left over cephalexin after intercourse. We discussed methenamine today. ROS Const Constitutional: No chills, fatigue, fever(s), headache(s), night sweats, weakness, weight change, abnormal sleep pattern or change in appetite Eyes Eyes: No change in vision ENT ENT: No headache(s) or dry mouth Resp Respiratory: No cough, chest congestion, shortness of breath or wheezing Cardio Cardiology: Positive for other (No chest pain.); No shortness of breath, irregular heart rhythm or lightheadedness Gastro GI: Positive for abdominal pain (suprapubic) and other (No nausea.); No change in bowel habits, constipation, diarrhea or vomiting Musc Musculoskeletal: No abnormal gait Skin Skin: No yellowing of the eye, lesions, itchy eyes, rash or skin ulcer Neuro Neurology: No abnormal gait, confusion, dizziness, weakness, headache(s) or memory loss Psych Psychiatric: No abnormal sleep pattern, No change in appetite, No confusion and No memory loss Endo Endocrine: No fatigue, increased thirst/drinking or weight change Aller/Imm Allergy/Immunologic: No itchy eyes or wheezing Cirilo/Lymp Hematologic/Lymphatic: No easy bleeding, easy bruising or enlarged lymph nodes Exam Const General: cooperative, healthy appearing, comfortable and no acute distress [facility] Head: normocephalic and atraumatic Ears: hearing grossly normal bilaterally and external ears normal Nose: external nose normal Eyes General: appearance normal, both eyes and all related structures Neck Neck: normal visual inspection and trachea midline Chest Chest palpation inspection: normal inspection of the chest Resp Effort Inspection: normal respiratory effort, able to speak in complete sentences and symmetric chest movement Cardio Rate: regular rate GI Inspection: normal to inspection (more content not included)... Normal [facility] CULTURE, URINE, ROUTINEon CULTURE, URINE, ROUTINE SEE NOTE Abnormal [facility] Comment on above: Result Comment: CULTURE, URINE, ROUTINE Micro Number: [id number] Test Status: Final Specimen Source: Not given Specimen Quality: Adequate Result: 50,000-100,000 CFU/mL of Escherichia coli E.coli INT AVE AMOX/CLAVULANATE S <=2 AMP/SULBACTAM S <=2 CEFAZOLIN NR <=1 2 CEFEPIME S <=0.12 CEFTAZIDIME S <=0.5 CEFTRIAXONE S <=0.25 CIPROFLOXACIN S <=0.06 GENTAMICIN S <=1 IMIPENEM S <=0.25 LEVOFLOXACIN S <=0.12 MEROPENEM S <=0.25 NITROFURANTOIN S <=16 PIP/TAZOBACTAM S <=4 TRIMETHOPRIM/SULFA S <=20 S = Susceptible I = Intermediate R = Resistant NS = Not susceptible SDD = Susceptible Dose Dependent * = Not Tested NR = Not Reported NN = See Therapy Comments THERAPY COMMENTS Note 1: For infections other than uncomplicated UTI caused by E. coli, K. pneumoniae or P. mirabilis: Cefazolin is resistant if AVE > or = 8 mcg/mL. (Distinguishing susceptible versus intermediate for isolates with AVE < or = 4 mcg/mL requires additional testing.) Note 2: For uncomplicated UTI caused by E. coli, K. pneumoniae or P. mirabilis: Cefazolin is susceptible if AVE <32 mcg/mL and predicts susceptible to the oral agents cefaclor, cefdinir, cefpodoxime, cefprozil, cefuroxime, cephalexin and loracarbef. Performed By: #### 3 95 #### [facility] [address], [address] [place] [id number] Head [employer]va Reactor Operator: Prateek Hawthorne MD POCT UA (nonautomated w/o mi croscopy) manually resultedon 12-08-2024 Appearance (U) Cloudy Abnormal Clear [facility] Work Phone: Glucose Test strip (U) [Mass/Vol] Negative NEGATIVE mg/dl [facility] Work Phone: Hemoglobin Ql (U) TRACE-Intact Abnormal NEGATIVE Unive [facility] Work Phone: Interpretation and review of laboratory results Abnormal [facility] Work Phone: Leukocyte esterase Test strip Ql (U) TRACE Abnormal NEGATIVE [facility] Work Phone: Nitrite Ql (U) Negative NEGATIVE [facility] Work Phone: [phone] pH (U) 6.0 [pH] No Reference Range Established [facility] Work Phone: [phone] POC Bilirubin, Urine Negative NEGATIVE [facility] Work Phone: [phone] POC Color, Urine Yellow Straw, Yellow, Light-Yellow [facility] Work Phone: )[phone] POC Ketones, Urine Negative NEGATIVE mg/dl [facility] Work Phone: POC Protein, Urine Negative NEGATIVE mg/dl [facility] Work Phone: [phone] POC Specific Plessis, Urine >=1.030 1.005 - 1.035 [facility] Work Phone: [phone] POC Urobilinogen, Urine 0.2 0.2, 1.0 EU/DL [facility] Work Phone: [phone] [facility] Work Phone: POCT Group A Streptococcus, PCR manually resultedon 08-08-2024 S. pyogenes DNA JACQUELIN+probe Ql (Throat) Not detected Not Detected [facility] Work Phone: [facility] Work Phone: SCRN MAMM (CAD)W/ANDREE BILATo n 04-13-2024 SCRN MAMM (CAD)W/ANDREE BILAT [facility] Imaging Services [address] [place] [id number] SCRN MAMM (CAD)W/ANDREE BILAT MR#: [id number] Acct: [id number] Name: SHANNON TEJADA Rep #: [id number] : 1975 F 48 From: Reyes posey MD PCP: Care Physician,No Primary Status: REG CLI Study: SCRN MAMM (CAD)W/ANDREE BILAT Date of Exam: 03/30 10/20 Exam# [id number] Ordering Dr: Ayala Heart MANAGER TALENT ACQUISITION-C [id number] MAMMOGRAPHY - BILATERAL SCREENING REASON FOR EXAM: Female, 48 years old. Routine annual screening examination. PERTINENT HISTORY: Non-contributory. TECHNIQUE: Digital bilateral breast andree (3D mammographic acquisition) in the CC and MLO projections. 2-D mediolateral oblique (MLO) and craniocaudad (CC) views of both breasts were obtained. CAD: Full Field Digital Mammography with Computer Added Detection was performed. COMPARISON: Comparison is made with prior outside examination August 12, 2022. FINDINGS: Breast Composition: There are scattered areas of fibroglandular density. There are no dominant masses or suspicious calcifications. Stable benign-appearing bilateral axillary nodes. No other significant abnormalities are identified. There has been no significant change since the prior study. BI/SCRN MAMM (CAD)W/ANDREE BILAT IMPRESSION: Stable bilateral screening mammogram. Yearly follow-up mammogram recommended. (A) ASSESSMENT CATEGORY: BIRADS Category 2: Benign. A letter regarding these results will be sent to the patient by the facility within 30 days. Approximately 10% of breast cancers are not detected by mammography. A normal mammogram should not delay biopsy of a clinically suspicious abnormality. [id number] Electronically Signed: Reyes Magana MD at 12:26 EST , CC: RHETT Heart; No Primary Care Physician Partner Management Consultant: Signed Normal [facility] CBC W Auto Differential pane l (Bld)on 04-07-2024 Basophils (Bld) [#/Vol] 0.06 x10*3/uL Normal 0.00-0.10 [facility] Comment on above: Performed By: #### 5 7021-8 #### CORINNA MOSQUEDA (50400) [facility] ([facility]) [address] [place] [address]014 Basophils/100 WBC (Bld) 0.6 % Normal 0.0-2.0 [facility] Comment on above: Performed By: #### 7021-8 #### CORINNA MOSQUEDA (18835) [facility] ([facility]) [address] [place] [address] 32277 Eosinophils (Bld) [#/Vol] 0.14 x10*3/uL Normal 0.00-0.70 [facility] Comment on above: Performed By: #### 5 7021-8 #### CORINNA MOSQUEDA (17857) [facility] ([facility]) [address] [place] [address] 09192 Eosinophils/100 WBC (Bld) 1.5 % Normal 0.0-6.0 [facility] Comment on above: Performed By: #### 7021-8 #### CORINNA MOSQUEDA (12057) [facility] ([facility]) [address] [place] [address] 17291 Erythrocyte distribution width (RBC) [Ratio] 12.8 % Normal 11.5-14.5 [facility] Comment on above: Performed By: #### 5 7021-8 #### CORINNA MOSQUEDA (71903) [facility] ([facility]) [address] [place] [address] 88636 Hematocrit (Bld) [Volume fraction] 47.5 % High 36.0-46.0 [facility] Comment on above: Performed By: #### 5 7021-8 #### CORINNA MOSQUEDA (30796) [facility] ([facility]) [address] [place] [address] 84502 Hemoglobin (Bld) [Mass/Vol] 15.5 g/dL Normal 12.0-16.0 [facility] Comment on above: Performed By: #### 5 7021-8 #### CORINNA MOSQUEDA (76327) [facility] ([facility]) [address] [place] [address] 23528 Immature granulocytes (Bld) [#/Vol] 0.09 x10*3/uL Normal 0.00-0.70 [facility] Comment on above: Performed By: #### 5 7021-8 #### CORINNA MOSQUEDA (27700) [facility] ([facility]) [address] [place] [address] 11374 Immature granulocytes/100 WBC (Bld) 0.9 % Normal 0.0-0.9 [facility] Comment on above: Result Comment: Gayathri ture Granulocyte Count (IG) includes promyelocytes, myelocytes and metamyelocytes but does not include bands. Percent differential counts (%) should be interpreted in the context of the absolute cell counts (cells/UL). Performed By: #### 5 7021-8 #### CORINNA MOSQUEDA (34695) [facility] ([facility]) [address] [place] [address] 65628 Lymphocytes (Bld) [#/Vol] 2.29 x10*3/uL Normal 1.20-4.80 [facility] Comment on above: Performed By: #### 5 7021-8 #### CORINNA MOSQUEDA (62023) [facility] ([facility]) [address] [place] [address] 77036 Lymphocytes/100 WBC (Bld) 24.1 % Normal 13.0-44.0 [facility] Comment on above: Performed By: #### 5 7021-8 #### CORINNA MOSQUEDA (07004) [facility] ([facility]) [address] [place] [address] 76076 MCH (RBC) [Entitic mass] 31.6 pg Normal 26.0-34.0 [facility] Comment on above: Performed By: #### 5 7021-8 #### CORINNA MOSQUEDA (81817) [facility] ([facility]) [address] [place] [address] 43715 MCHC (RBC) [Mass/Vol] 32.6 g/dL Normal 32.0-36.0 [facility] Comment on above: Performed By: #### 5 7021-8 #### CORINNA MOSQUEDA (02436) [facility] ([facility]) [address] [place] [address] 86544 MCV (RBC) [Entitic vol] 97 fL Normal 80-100 [facility] Comment on above: Performed By: #### 5 7021-8 #### CORINNA MOSQUEDA (28819) [facility] ([facility]) [address] [place] [address] 04789 Monocytes (Bld) [#/Vol] 0.79 x10*3/uL Normal 0.10-1.00 [facility] Comment on above: Performed By: #### 5 7021-8 #### CORINNA MOSQUEDA (73966) [facility] ([facility]) [address] [place] [address] 10967 Monocytes/100 WBC (Bld) 8.3 % Normal 2.0-10.0 [facility] Comment on above: Performed By: #### 5 7021-8 #### CORINNA MOSQUEDA (87135) [facility] ([facility]) [address] [place] [address] 94144 Neutrophils (Bld) [#/Vol] 6.13 x10*3/uL Normal 1.20-7.70 [facility] Comment on above: Result Comment: Perc ent differential counts (%) should be interpreted in the context of the absolute cell counts (cells/uL). Performed By: #### 5 7021-8 #### CORINNA MOSQUEDA (11766) [facility] ([facility]) [address] [place] [address] 54216 Neutrophils/100 WBC (Bld) 64.6 % Normal 40.0-80.0 [facility] Comment on above: Performed By: #### 5 7021-8 #### CORINNA MOSQUEDA (92691) [facility] ([facility]) [address] [place] [address] 69051 Nucleated RBC/100 WBC (Bld) [Ratio] 0.0 /100 WBCs Normal 0.0-0.0 [facility] Comment on above: Performed By: #### 5 7021-8 #### CORINNA MOSQUEDA (10011) [facility] ([facility]) [address] [place] [address] Platelets (Bld) [#/Vol] 241 x10*3/uL Normal 150-450 [facility] Comment on above: Performed By: #### 5 7021-8 #### CORINNA MOSQUEDA (90883) [facility] ([facility]) [facility] [place] [address] RBC (Bld) [#/Vol] 4.91 x10*6/uL Normal 4.00-5.20 [facility] Comment on above: Performed By: #### 5 7021-8 #### CORINNA MOSQUEDA (75010) [facility] ([facility]) [address] [place] [address] 49454 WBC (Bld) [#/Vol] 9.5 x10*3/uL Normal 4.4-11.3 [facility] Comment on above: Performed By: #### 5 7021-8 #### CORINNA MOSQUEDA (02851) [facility] ([facility]) [address] [place] [address] 25598 Calcidiolon 04-07-2024 25-hydroxyvitamin D3 [Mass/Vol] 16 ng/mL Low 30-100 [facility] Comment on above: Order Comment: Defic iency: < 20 ng/ml Insufficiency: 20-29 ng/ml Sufficiency: 30-100 ng/ml This assay accurately quantifies the sum of Vitamin D3, 25-Hydroxy and Vitamin D2,25-Hydroxy. Performed By: #### 1 989-3 #### CORINNA MOSQUEDA ([id number]) [facility] ([facility]) [address] [place] [address]379 Lipid 1996 panelon 4 Cholesterol [Mass/Vol] 167 mg/dL Normal 0-199 [facility] Comment on above: Result Comment: Age Desirable Borderline High High 0-19 Y 0 - 169 170 - 199 >/= 200 20-24 Y 0 - 189 190 - 224 >/= 225 >24 Y 0 - 199 200 - 239 >/= 240 All ranges are based on fasting samples. Specific therapeutic targets will vary based on patient-specific cardiac risk. Pediatric guidelines reference:Pediatrics 2011, 128(S5).Adult guidelines reference: NCEP ATPIII Guidelines,VALERIE 2001, 258:2486-46 Venipuncture immediately after or during the administration of Metamizole may lead to falsely low results. Testing should be performed immediately prior to Metamizole dosing. Performed By: #### 2 4331-1 #### CORINNA MOSQUEDA ([id number]) [facility] ([facility]) [address] [place] [address] Cholesterol in HDL [Mass/Vol] 47.0 mg/dL Normal [facility] Comment on above: Result Comment: Age Very Low Low Normal High 0-19 Y < 35 < 40 40-45 ---- 20-24 Y ---- < 40 >45 ---- >24 Y ---- < 40 40-60 >60 Performed By: #### 2 4331-1 #### CORINNA MOSQUEDA ([id number]) [facility] ([facility]) [address] [place] [address] 10159 Cholesterol in LDL [Mass/Vol] 84 mg/dL Normal <=99 [facility] Comment on above: Result Comment: Near Borderline AGE Desirable Optimal High High Very High 0-19 Y 0 - 109 --- 110-129 >/= 130 ---- 20-24 Y 0 - 119 --- 120-159 >/= 160 ---- >24 Y 0 - 99 100-129 130-159 160-189 >/=190 Performed By: #### 2 4331-1 #### CORINNA MOSQUEDA ([id number]) [facility] ([facility]) [address] [place] [address]02 Cholesterol in VLDL [Mass/Vol] 36 mg/dL Normal 0-40 [facility] Comment on above: Performed By: #### 2 4331-1 #### CORINNA MOSQUEDA ([id number]) [facility] ([facility]) [address] [place] [address]3586 CHOLESTEROL/HDL RATIO 3.6 Normal [facility] Comment on above: Result Comment: Ref Values Desirable < 3.4 High Risk > 5.0 Performed By: #### 2 4331-1 #### CORINNA MOSQUEDA ([id number]) [facility] ([facility]) [facility] [place] [address] NON HDL CHOLESTEROL 120 mg/dL Normal 0-149 [facility] Comment on above: Result Comment: Age Desirable Borderline High High Very High 0-19 Y 0 - 119 120 - 144 >/= 145 >/= 160 20-24 Y 0 - 149 150 - 189 >/= 190 ---- >24 Y 30 mg/dL above LDL Cholesterol goal Performed By: #### 2 4331-1 #### CORINNA MOSQUEDA ([id number]) [facility] ([facility]) [address] [place] [address] Triglyceride [Mass/Vol] 180 mg/dL High 0-149 [facility] Comment on above: Result Comment: Age Desirable Borderline High Very High SEX:B mg/dL mg/dL mg/dL mg/dL <=14D 86-277 ---- ---- ---- 15D-365D 55-277 ---- ---- ---- 1Y-9Y 0-74 75-99 >=100 ---- 10Y-19Y 0-89 90-129 >=130 ---- 20Y-24Y 0-114 115-149 >=150 ---- >= 25Y 0-149 150-199 200-499 >=500 Venipuncture immediately after or during the administration of Metamizole may lead to falsely low results. Testing should be performed immediately prior to Metamizole dosing. Performed By: #### 2 4331-1 #### CORINNA MOSQUEDA ([id number]) [facility] ([facility]) [address] [place], [place] [id number] TSH WITH REFLEX TO FREE T4 I F ABNORMALon 04-07-2024 TSH Qn 1.33 m[IU]/L Normal 0.44-3.98 [facility] Comment on above: Order Comment: TSH t esting is performed using different testing methodology at [facility] than at other [facility]. Direct result comparisons should only be made within the same method. Performed By: #### T HYDS #### CORINNA MOSQUEDA ([id number]) [facility] ([facility]) [address] [place], [place] [id number] POCT SARS-COV-2/FLU/RSV PCR SYMPTOMATIC manually resultedon 03-29-2024 FLUAV RNA JACQUELIN+probe Ql (Resp) Not detected Not Detected [facility] Work Phone: FLUBV RNA JACQUELIN+probe Ql (Resp) Not detected Not Detected [facility] Work Phone: RSV RNA JACQUELIN+probe Ql (Resp) Not detected Not Detected [facility] Work Phone: SARS-CoV-2 (COVID-19) RNA JACQUELIN+probe Ql (Resp) Not detected Not Detected [facility] Work Phone: [facility] Work Phone: MR Brain WO and W contrast I Von 03-25-2023 * There is no eviden ce of mass, infarction or hemorrhage. THIS EXAMINATION WAS INTERPRET[place] [facility] [place] Signed by: Tato Hernandez 03/25/2023 7:52 AM Dictation workstation: [id number] [facility] Interpreted By: Tato Olivier, STUDY: MR BRAIN W AND WO IV CONTRAST; 03/24/2023 7:06 pm INDICATION: Signs/Symptoms:multitude of neuro complaints, vision change, imbalance, family Hx of MS, speech issues, neuropathy. COMPARISON: None. ACCESSION NUMBER(S): [id number] ORDERING CLINICIAN: JAI FUENTES TECHNIQUE: The brain was studied in the sagittal, axial and coronal planes utilizing FLAIR, T1 and T2 weighted images. Following intravenous injection of gadolinium contrast, T1 weighted fat suppressed multiplanar images were also performed. FINDINGS: There is a normal-size ventricular system. There is no evidence of intracranial mass or extra-axial collection. The skull base, paranasal sinuses and orbital structures are unremarkable. Diffusion weighted images and associated ADC maps of the brain were unremarkable. There is no evidence of diffusion restriction to suggest the presence of acute infarction. Gradient echo T2 weighted images fail to demonstrate hemosiderin deposition or other evidence of hemorrhage. Following intravenous injection of there is no abnormal enhancement. There is normal contrast opacification of the dural venous sinuses. MMODAL Tato Hernandez MD - 03/25/2023 Interpreted By: Tato Hernandez, STUDY: MR BRAIN W AND WO IV CONTRAST; 03/24/2023 7:06 pm INDICATION: Signs/Symptoms:multitude of neuro complaints, vision change, imbalance, family Hx of MS, speech issues, neuropathy. COMPARISON: None. ACCESSION NUMBER(S): [id number] ORDERING CLINICIAN: JAI FUENTES TECHNIQUE: The brain was studied in the sagittal, axial and coronal planes utilizing FLAIR, T1 and T2 weighted images. Following intravenous injection of gadolinium contrast, T1 weighted fat suppressed multiplanar images were also performed. FINDINGS: There is a normal-size ventricular system. There is no evidence of intracranial mass or extra-axial collection. The skull base, paranasal sinuses and orbital structures are unremarkable. Diffusion weighted images and associated ADC maps of the brain were unremarkable. There is no evidence of diffusion restriction to suggest the presence of acute infarction. Gradient echo T2 weighted images fail to demonstrate hemosiderin deposition or other evidence of hemorrhage. Following intravenous injection of there is no abnormal enhancement. There is normal contrast opacification of the dural venous sinuses. IMPRESSION: * There is no evidence of mass, infarction or hemorrhage. THIS EXAMINATION WAS INTERPRETED AT [facility] [place] Signed by: Tato Hernandez 03/25/2023 7:52 AM Dictation workstation: [id number] [facility] Work Phone: MR Brain WO and W contrast I VOrdered By: Tato Hernandez on 03-25-2023 [facility] Work Phone: MR Brain WO and W contrast I Jose 03-24-2023 Radiology Study observation (narrative) [facility] Work Phone: BRIAN SCREENING W TOMOon 08-12 BRIAN SCREENING W ANDREE * * *Final Report* * * DATE OF EXAM: Aug 12 2022 10:52AM WR [id number] - BRIAN SCREENING W ANDREE / PROCEDURE REASON: Encounter for screening mammogram for breast cancer * * * * Physician Interpretation * * * * RESULT: #[id number] - BRIAN SCREENING W ANDREE BILATERAL DIGITAL SCREENING MAMMOGRAM TOMOSYNTHESIS WITH CAD: 08/12/2022 HISTORY: Encounter For Screening Mammogram For Breast Cancer / Screening Mammogram-Patient reports NO symptoms. /priors available for comparison. RESULT: TECHNIQUE: The study was acquired using full field digital technology and interpreted from soft copy. Digital Breast Tomosynthesis (DBT) images were obtained and used to assist in the interpretation of this examination. Current study was also evaluated with a Computer Aided Detection (CAD). Comparison is made to exams dated: 07/08/2021 mammogram, 09/30/2020 mammogram, 09/08/2020 mammogram - [facility], and 12/07/2017 mammogram. There are scattered fibroglandular elements in both breasts. No significant masses, calcifications, or other findings are seen in either breast. There has been no significant interval change. IMPRESSION: NEGATIVE There is no mammographic evidence of malignancy. A 1 year screening mammogram is recommended. Zoie Kelly M.D., ch/delilah:08/13/2022 11:32:46 Senior Java Engineer(s): Kerri De La O, [facility] letter sent: Normal over 40 Mammogram BI-RADS: 1 Negative Multiple national specialty organizations have released breast cancer screening guidelines for women at average risk for developing breast cancer - guidelines that are based on both evidence and opinion, yet differ on when to start and how often to screen for breast cancer. With representation from Breast Imaging, Internal Medicine, Women's Health, Family Medicine, and Medical/Surgical Oncology, the [facility] has carefully reviewed the data and reached the following consensus: 1) All women should engage in shared decision-making with their providers to decide when to start and how often to screen; 2) All women should have the opportunity to start screening mammography at age 40; 3) For women ages 45-55, we recommend annual screening mammograms; 4) For women ages 55 and over, we support both the transition from an annual to a biennial interval if this aligns more with patient's values and preferences, or continuation with annual screening; 5) All women should discuss with their providers when to stop screening mammograms. Partner Management Consultant: Delilah Transcribe Date/Time: Aug 12 2022 10:38A Dictated by: ZOIE KELLY MD This examination was interpreted and the report reviewed and electronically signed by: ZOIE KELLY MD on Aug 13 2022 11:32AM EST [id number] Normal [facility] CNOVon 06-18-2022 CNOV Office Visit (OBGYWM ) -- AUTUMNSHANNON ([id number]) 1975 F Date Time Provider Department 06/18/22 8:40 AM SHANNON HULL OBGYWDaiana During your visit today, we recorded the following information about you: Blood pressure Weight Height Last Period 118 91.6 kg 1.638 m 05/30/22 Shannon Hull MD 06/18/2022 9:11 AM Signed Shannon is a 46 year old who presents for an annual gynecologic exam with complaints, some recurrent UTIS and had to have a a procedure by urology for abnormal cells in the bladder and now havintg some issues now nad has f/u scheduled. Had yeast infections after antibiotics and still having some irritation today but mild. Has h/o Gricel ablation and has regular menses . 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 History LMP: 05/30/2022 (Within Days), Having periods Age at Menarche: Age at First : Age at Menopause: Senior Assistant Manager History Comments: Sexual Activity: Yes; Male Contraception: Vasectomy PAST MEDICAL HISTORY Diagnosis Date NEGATIVE MEDICAL HISTORY PAST SURGICAL HISTORY Procedure Laterality Date HYSTEROSCOPY ENDOMETRIAL ABLATION 11/20/2020 Gricel ablation REMOVAL GALLBLADDER FAMILY HISTORY Problem Relation Age of Onset Diabetes Mother Heart Mother Prostate Cancer Father 54 SOCIAL HISTORY Social History Tobacco Use Smoking status: Never Smokeless tobacco: Never Vaping Use Vaping Use: Never used Substance Use Topics Alcohol use: Not Currently Drug use: Never REVIEW OF SYSTEMS Abdomen: No abdominal pain, nausea, vomiting, diarrhea, or constipation. No bloating, early satiety, indigestion, or increased flatulence. Bladder: No dysuria, gross hematuria, urinary frequency, urinary urgency, or incontinence. Breast: No breast lumps, nipple d/c, overlying skin changes, redness or skin retraction. Allergies and current medication updated:Yes EXAM: BP 118/68 Ht 5' 4.5" (1.64m) Wt 202 lb (91.6kg) LMP 05/30/2022 BMI 34.15 kg/(m2). GENERAL: upset, female in no apparent distress HEENT: Normocephalic, atraumatic, mucus membranes moist, and no lesions NECK: Supple, full range of motion, no adenopathy, and thyroid normal DERMATOLOGY: Normal, without lesions, non-icteric, and non-hirsute BREAST: soft, non-tender, symmetric, no dominant mass, normal nipple-areolar complex, no lymphadenopathy, and no nipple discharge CHEST: Normal inspiratory effort ABDOMEN: soft, non-tender, and no masses PELVIC: external genitalia normal, normal Bartholin's glands, urethra, [place]'s glands, no vulvar lesions, no cervical lesions, good vaginal support, white adherent discharge present, normal appearing perineal body and perianal region, some erythema of vulva and vagina BIMANUAL: uterus normal size, shape and consistency, no adnexal masses, and non-tender RECTOVAGINAL: deferred. NEURO: alert and oriented x3,exam grossly non-focal EXTREMITIES: normal ASSESSMENT/PLAN: 1) Health maintenance: Pap/HPV up to date. Mammogram ordered. 2) Contraception: vasectomy. Contraceptive options reviewed and information provided. 3) STD screening: Declined STD check. 4) Follow up one year or sooner as needed MD Teresa Pablo Ma 06/18/2022 9:25 AM Signed Addended by: TERESA FELIX MA on: 06/18/2022 09:25 AM Modules accepted: Orders Shannon Hull MD 06/18/2022 10:48 AM Signed Addended by: SHANNON HULL on: 06/18/2022 10:48 AM Modules accepted: Orders Referring Provider: SELF [200] Allergies As of Date: 06/18/2022 Noted Allergy Reaction AMOXICILLIN 09/05/2007 4 - Hives Date Reviewed: 06/18/2022 Reviewed by: Shannon Hull MD - Fully Assessed Reason for Visit: Yearly Exam [187] Primary Visit Diagnosis:Encounter for gynecological examination with abnormal finding [Z01.411] Other Visit Diagnoses:Encounter for screening mammogram for breast cancer [Z12.31] Yeast vaginitis [B37.31] Order(s):BRIAN SCREENING W ANDREE [[id number]] Order #: [id number] FUTURE fluconazole (DIFLUCAN) 150 mg tabletTake 1 tablet by mouth as directed. take one, repeat in 3 days as needed for yeast infectionsDisp: 4 tabletRfl: 2 BACT/JILLIAN VAG GRAM STAIN [SQBVCNSM] Order #: [id number] Prescriptions as of 06/18/2022 - cephALEXin (KEFLEX) 500 mg capsule Take 500 mg by mouth three times daily. - famotidine (PEPCID) 20 mg tablet Take 20 mg by mouth q 12 HR. - VITAMIN D 25 mcg (1,000 unit) cap - SOOLANTRA 1 % APPLY TO THE FACE TWICE A DAY - clascoterone 1 % crea Apply to affected area. - cephALEXin (KEFLEX) 250 mg capsu (more content not included)... Normal [facility] Gram Stn Vagon 06-18-2022 Microscopic observation Gram stain Nom (Vag fld) BACTERIAL VAGINOSIS: BACTERIAL VAGINOSIS RESULT: Stain results consistent with normal vaginal franny. No Yeast observed No Polymorphonuclear Leukocytes Normal [facility] Comment on above: Performed By: #### 1 4361-0 #### [facility] CLIA [id number] [address] [place] [address] [place] LYME AB SCREEN + REFLEX TO I MMUNOBLOT; >4 WKS POST SYMPTOMSon 03-24-2022 LYME ANTIBODIES SCREEN 0.49 SUSHIL Normal 0.00-1.20 [facility] Comment on above: Result Comment: When the Borrelia burgdorferi Abs, Total by ASHA result is negative, no further testing is done. INTERPRETIVE INFORMATION: Borrelia Burgdorferi Abs,Total by ASHA 0.99 SUSHIL or Less: ...... Negative: Antibody to B. burgdorferi not detected. 1.00 - 1.20 SUSHIL......... Equivocal: Repeat testing in 10-14 days may be helpful. 1.21 SUSHIL or Greater: ... Positive: Probable presence of antibody to B. burgdorferi detected. Performed By: [facility] [address] [place] [address] Bladder Trimmer: Joon Gonzáles MD, PhD Performed By: #### L YMLD #### [facility] [address] [place] [address] CBCon 03-20-2022 Erythrocyte distribution width (RBC) [Ratio] 12.8 % Normal 11.5 - 14.5 [facility] Comment on above: Performed By: #### C BC #### [address] [address] Hematocrit (Bld) [Volume fraction] 44.4 % Normal 36.0 - 46.0 [facility] Comment on above: Performed By: #### C BC #### [address] [address] Hemoglobin (Bld) [Mass/Vol] 15.1 g/dL Normal 12.0 - 16.0 [facility] Comment on above: Performed By: #### C BC #### [address] [address] MCHC (RBC) [Mass/Vol] 34.0 g/dL Normal 32.0 - 36.0 [facility] Comment on above: Performed By: #### C BC #### [address] [address] MCV (RBC) [Entitic vol] 92 fL Normal 80 - 100 [facility] Comment on above: Performed By: #### C BC #### [address] [address] Platelets (Bld) [#/Vol] 202 10*3/uL Normal 150 - 450 [facility] Comment on above: Performed By: #### C BC #### [address] [address] RBC 4.81 x10E12/L Normal 4.00 - 5.20 [facility] [place] Comment on above: Performed By: #### C BC #### [address] [address] WBC (Bld) [#/Vol] 8.5 10*3/uL Normal 4.4 - 11.3 [facility] Comment on above: Performed By: #### C BC #### [address] [address] COMPREHENSIVE PANELon 2021 Albumin [Mass/Vol] 4.0 g/dL Normal 3.4 - 5.0 [facility] Comment on above: Performed By: #### C MP #### [address] [address] ALP [Catalytic activity/Vol] 74 U/L Normal 33 - 110 [facility] Comment on above: Performed By: #### C MP #### [address] [address] ALT [Catalytic activity/Vol] 23 U/L Normal 7 - 45 [facility] Comment on above: Result Comment: Nani ents treated with Sulfasalazine may generate falsely decreased results for ALT. Performed By: #### C MP #### [address] [address] Anion gap [Moles/Vol] 11 mmol/L Normal 10 - 20 [facility] Comment on above: Performed By: #### C MP #### [address] [address] AST [Catalytic activity/Vol] 14 U/L Normal 9 - 39 [facility] Comment on above: Performed By: #### C MP #### [address] [address] Bilirubin [Mass/Vol] 0.6 mg/dL Normal 0.0 - 1.2 [facility] Comment on above: Performed By: #### C MP #### [address] [address] Calcium [Mass/Vol] 9.2 mg/dL Normal 8.6 - 10.3 [facility] Comment on above: Performed By: #### C MP #### [address] [address] Chloride [Moles/Vol] 105 mmol/L Normal 98 - 107 [facility] Comment on above: Performed By: #### C MP #### [address] [address] Creatinine [Mass/Vol] 0.58 mg/dL Normal 0.50 - 1.05 [facility] Comment on above: Performed By: #### C MP #### [address] [address] eGFR FEMALE >90 Normal >90 [facility] Comment on above: Result Comment: CALC ULATIONS OF ESTIMATED GFR ARE PERFORMED USING THE 2020 CKD-EPI STUDY REFIT EQUATION WITHOUT THE RACE VARIABLE FOR THE IDMS-TRACEABLE CREATININE METHODS. https://jasn.asnjournals.org/content/early//ASN.015272517 8 Performed By: #### C MP #### [address] [address] Glucose [Mass/Vol] 104 mg/dL High 74 - 99 [facility] Comment on above: Performed By: #### C MP #### [address] [address] HCO3 (Bld) [Moles/Vol] 28 mmol/L Normal 21 - 32 [facility] Comment on above: Performed By: #### C MP #### [address] [address] Potassium [Moles/Vol] 4.4 mmol/L Normal 3.5 - 5.3 [facility] Comment on above: Performed By: #### C MP #### [address] [address] Protein [Mass/Vol] 6.9 g/dL Normal 6.4 - 8.2 [facility] Comment on above: Performed By: #### C MP #### [address] [address] Sodium [Moles/Vol] 140 mmol/L Normal 136 - 145 [facility] Comment on above: Performed By: #### C MP #### [address] [address] Urea nitrogen [Mass/Vol] 9 mg/dL Normal 6 - 23 [facility] Comment on above: Performed By: #### C #### [address] [address] HEMOGLOBIN A1Con 03-20-2022 Glucose [Mass/Vol] 105 mg/dL Normal [facility] Comment on above: Performed By: #### H BA1E #### [address] [address] HbA1c (Bld) [Mass fraction] 5.3 % Normal [facility] Comment on above: Result Comment: Diag nosis of Diabetes-Adults Non-Diabetic: < or = 5.6% Increased risk for developing diabetes: 5.7-6.4% Diagnostic of diabetes: > or = 6.5% . Monitoring of Diabetes Age (y) Therapeutic Goal (%) Adults: >18 <7.0 Pediatrics: 13-18 <7.5 7-12 <8.0 0- 6 7.5-8.5 [employer]. Diabetes Care 33(S1), May 2009. Performed By: #### H BA1E #### [address] [address] Hemoglobin A1Con 03-20-2022 Glucose [Mass/Vol] 105 mg/dL [facility] Work Phone: HbA1c (Bld) [Mass fraction] 5.3 % [facility] Work Phone: Comment on above: Diagnosis of Diabete s-Adults Non-Diabetic: < or = 5.6% Increased risk for developing diabetes: 5.7-6.4% Diagnostic of diabetes: > or = 6.5%. Monitoring of Diabetes Age (y) Therapeutic Goal (%) Adults: >18 <7.0 Pediatrics: 13-18 <7.5 7-12 <8.0 0- 6 7.5-8.5 [employer]. Diabetes Care 33(S1), May 2009. LIPID PANEL (CORONARY RISK 2 )on 03-20-2022 Cholesterol [Mass/Vol] 178 mg/dL Normal 0 - 199 [facility] Comment on above: Result Comment: . AGE DESIRABLE BORDERLINE HIGH HIGH 0-19 Y 0 - 169 170 - 199 >/= 200 20-24 Y 0 - 189 190 - 224 >/= 225 >24 Y 0 - 199 200 - 239 >/= 240 All ranges are based on fasting samples. Specific therapeutic targets will vary based on patient-specific cardiac risk. . Pediatric guidelines reference:Pediatrics 2011, 128(S5). Adult guidelines reference: NCEP ATPIII Guidelines, VALERIE 2001, 258:2486-97 . Venipuncture immediately after or during the administration of Metamizole may lead to falsely low results. Testing should be performed immediately prior to Metamizole dosing. Performed By: #### L IPID #### [address] [address] Cholesterol in HDL [Mass/Vol] 54.0 mg/dL Normal [facility] Comment on above: Result Comment: . AGE VERY LOW LOW NORMAL HIGH 0-19 Y < 35 < 40 40-45 ---- 20-24 Y ---- < 40 >45 ---- >24 Y ---- < 40 40-60 >60 . Performed By: #### L IPID #### [address] [address] Cholesterol in LDL [Mass/Vol] 101 mg/dL High 0 - 99 [facility] Comment on above: Result Comment: . NEAR BORD AGE DESIRABLE OPTIMAL HIGH HIGH VERY HIGH 0-19 Y 0 - 109 --- 110-129 >/= 130 ---- 20-24 Y 0 - 119 --- 120-159 >/= 160 ---- >24 Y 0 - 99 100-129 130-159 160-189 >/=190 . Performed By: #### L IPID #### [address] [address] Cholesterol in VLDL [Mass/Vol] 23 mg/dL Normal 0 - 40 [facility] Comment on above: Performed By: #### L IPID #### [address] [address] Cholesterol.total/ Cholesterol in HDL [Mass ratio] 3.3 {ratio} Normal [facility] Comment on above: Result Comment: REF VALUES DESIRABLE < 3.4 HIGH RISK > 5.0 Performed By: #### L IPID #### [address] [place] [address] Triglyceride [Mass/Vol] 114 mg/dL Normal 0 - 149 [facility] Comment on above: Result Comment: . AGE DESIRABLE BORDERLINE HIGH HIGH VERY HIGH 0 D-90 D 19 - 174 ---- ---- ---- 91 D- 9 Y 0 - 74 75 - 99 >/= 100 ---- 10-19 Y 0 - 89 90 - 129 >/= 130 ---- 20-24 Y 0 - 114 115 - 149 >/= 150 ---- >24 Y 0 - 149 150 - 199 200- 499 >/= 500 . Venipuncture immediately after or during the administration of Metamizole may lead to falsely low results. Testing should be performed immediately prior to Metamizole dosing. Performed By: #### L IPID #### [address] [address] Laboratory - Chemistry and C hemistry - challengeon 03-20-2022 Albumin BCP dye [Mass/Vol] 4.0 g/dL 3.4 - 5.0 [facility] Work Phone: [phone] ALP [Catalytic activity/Vol] 74 U/L 33 - 110 [facility] Work Phone: [phone] ALT With P-5'-P [Catalytic activity/Vol] 23 U/L 7 - 45 [facility] Work Phone: [phone] Comment on above: Patients treated wit h Sulfasalazine may generate falsely decreased results for ALT. Anion gap [Moles/Vol] 11 mmol/L 10 - 20 [facility] Work Phone: [phone] AST With P-5'-P [Catalytic activity/Vol] 14 U/L 9 - 39 [facility] Work Phone: [phone] Bilirubin [Mass/Vol] 0.6 mg/dL 0.0 - 1.2 [facility] Work Phone: [phone] Calcium [Mass/Vol] 9.2 mg/dL 8.6 - 10.3 [facility] Work Phone: [phone] Chloride [Moles/Vol] 105 mmol/L 98 - 107 [facility] Work Phone: [phone] CO2 [Moles/Vol] 28 mmol/L 21 - 32 [facility] Work Phone: [phone] Creatinine [Mass/Vol] 0.58 mg/dL See Below [facility] Work Phone: [phone] Comment on above: Reference Range: 0.5 0 - 1.05 Glucose [Mass/Vol] 104 mg/dL above high threshold 74 - 99 [facility] Work Phone: [phone] Potassium [Moles/Vol] 4.4 mmol/L 3.5 - 5.3 [facility] Work Phone: [phone] Protein [Mass/Vol] 6.9 g/dL 6.4 - 8.2 [facility] Work Phone: [phone] Sodium [Moles/Vol] 140 mmol/L 136 - 145 [facility] Work Phone: [phone] TSH Qn 2.14 m[IU]/L See Below [facility] Work Phone: [phone] Comment on above: Reference Range: 0.4 4 - 3.98 TSH testing is performed using different testing methodology at [facility] than at other [facility]. Direct result comparisons should only be made within the same method. Urea nitrogen [Mass/Vol] 9 mg/dL 6 - 23 [facility] Work Phone: [phone] Laboratory - Hematology and Cell countson 03-20-2022 Erythrocyte distribution width (RBC) [Ratio] 12.8 % See Below [facility] Work Phone: [phone] Comment on above: Reference Range: 11. 5 - 14.5 Hematocrit (Bld) [Volume fraction] 44.4 % See Below [facility] Work Phone: [phone] Comment on above: Reference Range: 36. 0 - 46.0 Hemoglobin (Bld) [Mass/Vol] 15.1 g/dL See Below [facility] Work Phone: [phone] Comment on above: Reference Range: 12. 0 - 16.0 MCHC (RBC) [Mass/Vol] 34.0 g/dL See Below [facility] Work Phone: [phone] Comment on above: Reference Range: 32. 0 - 36.0 MCV (RBC) [Entitic vol] 92 fL 80 - 100 [facility] Work Phone: [phone] Platelets (Bld) [#/Vol] 202 10*3/uL 150 - 450 [facility] Work Phone: [phone] RBC (Bld) [#/Vol] 4.81 {x10E12/L} See Below [facility] Work Phone: [phone] Comment on above: Reference Range: 4.0 0 - 5.20 WBC (Bld) [#/Vol] 8.5 10*3/uL 4.4 - 11.3 [facility] Work Phone: [phone] Laboratory - Microbiology an d Antimicrobial susceptibilityon 03-20-2022 B. burgdorferi Ab IA Qn (S) 0.49 {SUSHIL} 0.00-1.20 [facility] Work Phone: [phone] Comment on above: When the Borrelia bu rgdorferi Abs, Total by ASHA result is negative, no further testing is done.INTERPRETIVE INFORMATION: Borrelia Burgdorferi Abs,Total by ASHA 0.99 SUSHIL or Less: ...... Negative: Antibody to B. burgdorferi not detected. 1.00 - 1.20 SUSHIL......... Equivocal: Repeat testing in 10-14 days may be helpful. 1.21 SUSHIL or Greater: ... Positive: Probable presence of antibody to B. burgdorferi detected.Performed By: [employer] [place] [id number] Director: Joon Gonzáles MD, PhD Lipid Panelon 03-20-2022 Cholesterol [Mass/Vol] 178 mg/dL 0 - 199 [facility] Work Phone: Comment on above: . AGE DESIRABLE BORD MALLORY HIGH HIGH 0-19 Y 0 - 169 170 - 199 >/= 200 20-24 Y 0 - 189 190 - 224 >/= 225 >24 Y 0 - 199 200 - 239 >/= 240 All ranges are based on fasting samples. Specific therapeutic targets will vary based on patient-specific cardiac risk.. Pediatric guidelines reference:Pediatrics 2011, 128(S5). Adult guidelines reference: NCEP ATPIII Guidelines, VALERIE 2001, 258:2486-97. Venipuncture immediately after or during the administration of Metamizole may lead to falsely low results. Testing should be performed immediately prior to Metamizole dosing. Cholesterol in HDL [Mass/Vol] 54.0 mg/dL [facility] Work Phone: [phone] Comment on above: . AGE VERY LOW LOW N ORMAL HIGH 0-19 Y < 35 < 40 40-45 ---- 20- 24 Y ---- < 40 >45 ---- >24 Y ---- < 40 40-60 >60. Cholesterol in LDL [Mass/Vol] 101 mg/dL above high threshold 0 - 99 [facility] Work Phone: [phone] Comment on above: . NEAR BORD AGE TC RABLE OPTIMAL HIGH HIGH VERY HIGH 0-19 Y 0 - 109 --- 110-129 >/= 130 ---- 20-24 Y 0 - 119 --- 120-159 >/= 160 ---- >24 Y 0 - 99 100-129 130-159 160-189 >/=190. Cholesterol.total/ Cholesterol in HDL [Mass ratio] 3.3 {ratio} [facility] Work Phone: Comment on above: REF VALUESDESIRABLE < 3.4HIGH RISK > 5.0 Triglyceride [Mass/Vol] 114 mg/dL 0 - 149 [facility] Work Phone: Comment on above: . AGE DESIRABLE BORD MALLORY HIGH HIGH VERY HIGH 0 D-90 D 19 - 174 ---- ---- ----91 D- 9 Y 0 - 74 75 - 99 >/= 100 ---- 10-19 Y 0 - 89 90 - 129 >/= 130 ---- 20-24 Y 0 - 114 115 - 149 >/= 150 ---- >24 Y 0 - 149 150 - 199 200- 499 >/= 500. Venipuncture immediately after or during the administration of Metamizole may lead to falsely low results. Testing should be performed immediately prior to Metamizole dosing. Lipid Panel 23 mg/dL 0 - 40 [facility] Work Phone: No Panel Informationon 03-20 >90 >90 [facility] Work Phone: Comment on above: CALCULATIONS OF ADRIANNA MATED GFR ARE PERFORMED USING THE 2020 CKD-EPI STUDY REFIT EQUATION WITHOUT THE RACE VARIABLE FOR THE IDMS-TRACEABLE CREATININE METHODS.https://jasn.asnjournals.org/content/early/ASN.2 709968381 TSH WITH REFLEX TO FREE T4 I F ABNORMALon 03-20-2022 TSH Qn 2.14 m[IU]/L Normal 0.44 - 3.98 [facility] Comment on above: Result Comment: TSH testing is performed using different testing methodology at [facility] than at other [facility]. Direct result comparisons should only be made within the same method. Performed By: #### T HYDS #### [address] [address] VITAMIN D, 25-HYDROXYon 02-28 VITAMIN D, 25-HYDROXY 14 ng/mL Abnormal [facility] Comment on above: Result Comment: . DEFICIENCY: < 20 NG/ML INSUFFICIENCY: 20-29 NG/ML SUFFICIENCY: 30-100 NG/ML THIS ASSAY ACCURATELY QUANTIFIES THE SUM OF VITAMIN D3, 25-HYDROXY AND VIT D2,25-HYDROXY. Performed By: #### V TDOH #### [address] [address] Vitamin D 25-Hydroxyon 03-20 25-hydroxyvitamin D3 [Mass/Vol] 14 ng/mL Abnormal [facility] Work Phone: Comment on above: .DEFICIENCY: < 20 NG /MLINSUFFICIENCY: 20-29 NG/MLSUFFICIENCY: 30-100 NG/MLTHIS ASSAY ACCURATELY QUANTIFIES THE SUM OFVITAMIN D3, 25-HYDROXY AND VIT D2,25-HYDROXY. Office Visit (Internal Medic ine)on 03-01-2022 Follow-up visit Diagnoses/Problems Health Maintenance/Risks Encounter for preventive health examination (V70.0) (Z00.00) Assessed Rosacea (695.3) (L71.9) Idiopathic urticaria (708.1) (L50.1) Orders Health Maintenance Complete Blood Count; Status:Active; Requested for:01Mar2022; Perform:Lab Services - Lab To Draw (Blood Test); Due:30May2022;Ordered; For:Health Maintenance; Ordered By:Jai Fuentes; Comprehensive Metabolic Panel; Status:Active; Requested for:01Mar2022; Perform:Lab Services - Lab To Draw (Blood Test); Due:30May2022;Ordered; For:Health Maintenance; Ordered By:Jai Fuentes; Hemoglobin A1C; Status:Active; Requested for:01Mar2022; Perform:Lab Services - Lab To Draw (Blood Test); Due:30May2022;Ordered; For:Health Maintenance; Ordered By:Jai Fuentes; Lipid Panel; Status:Active; Requested for:01Mar2022; Perform:Lab Services - Lab To Draw (Blood Test); Due:30May2022;Ordered; For:Health Maintenance; Ordered By:Jai Fuentes; Lyme AB Screen + Reflex To Immunoblot; >4 Weeks Post Symptoms; Status:Active; Requested for:01Mar2022; Perform:Lab Services - Lab To Draw (Blood Test); Due:11Mar2022;Ordered; For:Health Maintenance; Ordered By:Jai Fuentes; TSH WITH REFLEX TO FREE T4 IF ABNORMAL; Status:Active; Requested for:01Mar2022; Perform:Lab Services - Lab To Draw (Blood Test); Due:30May2022;Ordered; For:Health Maintenance; Ordered By:Jai Fuentes; Vitamin D 25-Hydroxy; Status:Active; Requested for:01Mar2022; Perform:Lab Services - Lab To Draw (Blood Test); Due:30May2022;Ordered; For:Health Maintenance; Ordered By:Jai Fuentes; Idiopathic urticaria Start: Famotidine 20 MG Oral Tablet (Pepcid); TAKE 1 TABLET EVERY 12 HOURS DAILY Rx By: Jai Fuentes; Dispense: 7 Days ; #:14 Tablet; Refill: 1; For: Idiopathic urticaria; JESSICA = N; Verified Transmission to [facility]; Last Updated By: [email or web address]; 03/01/2022 11:23:34 AM Start: hydrOXYzine HCl - 25 MG Oral Tablet; TAKE 1 TABLET 3 TO 4 TIMES DAILY NEEDED FOR ITCHING Rx By: Jai Fuentes; Dispense: 5 Days ; #:20 Tablet; Refill: 0; For: Idiopathic urticaria; JESSICA = N; Verified Transmission to [facility]; Last Updated By: [email or web address]; 03/01/2022 11:23:45 AM Start: predniSONE 20 MG Oral Tablet; TAKE 1 TABLET TWICE DAILY Rx By: Jai Fuentes; Dispense: 7 Days ; #:14 Tablet; Refill: 1; For: Idiopathic urticaria; JESSICA = N; Verified Transmission to [place] [address]; Last Updated By: [facility] [facility]; 03/01/2022 11:23:41 AM Administer: methylPREDNISolone Sodium Succ 125 MG Injection Solution Reconstituted (SOLU-Medrol); INJECT 1 MG Intramuscular once; To Be Done: 01Mar2022 Rx By: Jai Fuentes; For: Idiopathic urticaria; JESSICA = N; Request Administration SocHx: Never used tobacco Tobacco Use Screening; Status:Complete; Done: 01Mar2022 Perform:Not Applicable;Ordered; For:SocHx: Never used tobacco; Ordered By:Emiliano Mcwilliams; Patient Discussion/Summary Idiopathic urticaria: Possible etiologies reviewed. IM Solu-Medrol in office, prescriptions for prednisone, Pepcid, and Atarax. Health maintenance: CBC, CMP, A1c, lipid panel, TSH, and vitamin D. 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 Patient concerned about possible Lyme so Lyme AB screen was ordered. Further recommendations pending results. Follow-up as needed unless labs dictate otherwise Chief Complaint Patient here today to get established as a new patient and last seen by PCP 2-3 years ago. Patient having skin irritation scalp, ears, face and left hip x 6 days. Patient has used OTC Tecnu cream and Hydrocortisone. Colonoscopy never done, PAP last year and mammogram 1.5 with ultrasound 6 mos ago. 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 Solu-Medrol 125 mg/2mL given right gluteal without incident , patient tolerated well without complaints. [facility] [id number] EXP 06/2022 LOT [id number] 1 Amended By: Emiliano Mcwilliams; Mar 01 2022 11:59 AM ESTHistory of Present IllnessPatient presents to establish care. Patient has no chronic illnesses and takes no daily medications. Patient does have rosacea which is well managed by dermatology with topical formulations. 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 Patient follows closely with urology for this. Patient is also current with Paps and mammograms per [employer]. Patient has never had a colonoscopy. No report of prior screening labs. Acutely, patient requesting evaluation of a rash. Patient reports approximately 6 days ago widespread, erythematous, tender and pruritic eruptions involving the face, neck, ears, and trunk. Patient attempted topical hydrocortisone and other [id number] medicines without relief. Patient does report working outside a (more content not included)... Normal [facility] PT Progress Noteon 2 PT Progress Note Therapy Diagnosis Assessed Pelvic pain in female (625.9) (R10.2) Mixed incontinence (788.33) (N39.46) Plan Goals: Goals set and discussed today. -Patient will have improved strength and endurance of pelvic floor to complete 50 reps of kegels /day without compensation...2 weeks -Patient will have improved coordination and strength of pelvic floor to engage pelvic floor prior to coughing/sneezing to eliminate stress incontinence...4 weeks -Patient will have improved control of pelvic floor to complete 3-level elevator exercises to improve control for reducing leakage...4 weeks -Patient will have improved strength and endurance of core muscles to complete 100 reps of kegels per day for 1 week...4 weeks -Patient will have no episodes of stress incontinence x1 week...6 weeks -Patient will demonstrate good ability to isolate and contract Transverse ABdominus muscle to assist with pelvic stabilization during lifting, carrying, exercises to help reduce urinary leakage and to support back -Patient will wake to void no more than 2x/night x1 week....6 weeks -patient will no episodes of leakage (urge or stress) for one week...6 weeks -patient will have KWABENA score of 4/24 or less (current )...6 weeks recheck in 4 weeks. Assessment Patient is reporting compiance with HEP and is better able to isolate and contract and relax her pelvic floor for kegel exercises. She is reporting decreased urinary frequancy and leakage. 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 Patient may also be getting some irritation from exercising her pelvic floor and area around her previously injured coccyx where there is likely scar tissue formed. Patient was instructed in hip/pelvic stretches today and added to HEP. WIll re-check patient's progress with HEP and improvement in her symptoms in 4 weeks. Response to treatment: improved flexibility, improved motor control and improved knowledge and understanding of condition. Patient was able to complete today's treatment with ease. Adult Risk Screening There are no spiritual/cultural practices/values/needs that are important to know Initial Fall Risk Screening: SHANNON has not fallen in the last 6 months. Insurance Insurance reviewed Visit number: 2 Authorization not required after evaluation Medical [place]-[facility] hard Rehab Dx: R10.2, N39.46 Medical Dx: R10.2 pelvic pain, N39.46 mixed incontinence Eval date: 01/11/22 Supervising PT: Janet Moser PT, MPT Referral: Gwendolyn Snow MD Subjective Patient reports:. patient reports she has only been getting up at night 1-2x/night and sometimes not at all. States she still has not always been able to tell if she is doing full relaxation. States after her first session she feels her skin was irritated from the electrodes and she felt sore/chafed feeling for a day. states she feels more coordinated to perform the exercises and states they are coming to her easily. states she doesn't want to do the biofeedback with electrodes due to skin irritation and doesn't feel she needs the vaginal sensor. 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 Home program performing as directed: Yes. Precautions: none. Fall Risk: none Treatment Time in clinic started at 1600 Time in clinic ended at 1645 Total time in clinic is 45 minutes. Total timed code time is 42 minutes. Therapeutic exercise (00634): timed minutes 42, units 3 . - basic kegels (1 second hold/relax) x10 and reviewed for HEP 10 reps 3-6x/day - elevator kegels: 2-levels, with instruction, cuing, and imagery; palpating Levator Ani at gluteal cleft in L S/L x10; instructed for HEP 10 reps 1-2x/day, increase to 3-levels -long hold kegels : 10 second holds 1-2x/day for HEP reviewed -quick flick instructed and HEP 1-2x/day x10 reps -TrA juan a plantigrade with T/V cues x10 and instructed for HEP 10 reps 2x/dayX TrA juan a plantigrade with hip ext and abd x10 ea for HEP (N) -hamstring stretch seated 30 sec (N) and HEP -piriformis stretch supine 30 sec (N) and HEP -adductor stretch standing/lunge 30 sec (N) and HEP -Hip flexor stretch on chair 30 sec (N) and HEP -body mechanics and back safety with ADLS and work NOT TODAY 02/02/22 neuro wilian x18min -using biofeedback with kegels -basic , elevators (2-levels), 3" holds-emphasis on contraction AND relaxation . 'Scores and Scales' Signatures Electronically signed by : Janet Moser PT; Feb 02 2022 5:05PM EST (Author) Normal [facility] Therapy Communicationon 12-29 Therapy Communication Message SHANNON TEJADA canceled today . Signatures Electronically signed by : Janet Moser PT; Jan 19 2022 11:25AM EST (Author) Normal [facility] PT Initial Evaluationon 12-28 PT Initial Evaluation Therapy Diagnosis Assessed Pelvic pain in female (625.9) (R10.2) Mixed incontinence (788.33) (N39.46) Plan of Care Goals: Goals set and discussed today. -Patient will have improved strength and endurance of pelvic floor to complete 50 reps of kegels /day without compensation...2 weeks -Patient will have improved coordination and strength of pelvic floor to engage pelvic floor prior to coughing/sneezing to eliminate stress incontinence...4 weeks -Patient will have improved control of pelvic floor to complete 3-level elevator exercises to improve control for reducing leakage...4 weeks -Patient will have improved strength and endurance of core muscles to complete 100 reps of kegels per day for 1 week...4 weeks -Patient will have no episodes of stress incontinence x1 week...6 weeks -Patient will demonstrate good ability to isolate and contract Transverse ABdominus muscle to assist with pelvic stabilization during lifting, carrying, exercises to help reduce urinary leakage and to support back -Patient will wake to void no more than 2x/night x1 week....6 weeks -patient will no episodes of leakage (urge or stress) for one week...6 weeks -patient will have KWABENA score of 4/24 or less (current )...6 weeks Planned interventions include: biofeedback, education/instruction, home program, neuromuscular re-education and therapeutic exercises. Frequency and duration:. up to 5 visits in 8 weeks. Potential to achieve rehab goals is excellent Plan of care was developed with input and agreement by the patient. Assessment Patient presents with weakness and incoordination ofcore muscles (specifically her pelvic floor musculature). Patient is experiencing urge and stress incontinence as well as increased frequency due to weakness and poor control of pelvic floor muscles. Patient was incorrectly performing kegel/pelvic floor exercises prior to today's evaluation. Biofeedback was used for neuro reeducation as patient not only had difficulty engaging her pelvic floor but she had difficulty fully relaxing the muscles as well. During treatment today she was able to isolate and contract her pelvic floor and Transverse abdominus muscles with instruction, cues and imagery and then able to better relax them as well with cues and biofeedback . Patient is a good rehab candidate as long as she continues to be compliant with her HEP to build strength, endurance, and coordination of core muscles and also to improve relaxation in order to reduce and eliminate urinary incontinence, pelvic pain and urinary urgency. Clinical Presentation: Stable and/or uncomplicated characteristics. Level of Complexity: low Problem List: coordination, decreased knowledge of HEP, motor function/control/tone, pain, strength and incontinence, difficulty with relaxation. Reason For Visit Initial Evaluation. Adult Risk Screening There are no spiritual/cultural practices/values/needs that are important to know Initial Fall Risk Screening: SHANNON has not fallen in the last 6 months. Pain Scale: On a scale of 0 to 10, the patient rates the pain at 0. Insurance Insurance reviewed Visit number: 1 Authorization not required after evaluation Medical [place]-[facility] hard Rehab Dx: R10.2, N39.46 Medical Dx: R10.2 pelvic pain, N39.46 mixed incontinence Eval date: 01/11/22 Supervising PT: Janet Moser PT, MPT Referral: Gwendolyn Snow MD Subjective Pelvic History: Injury Onset: 12/29/2019. Chief Complaint/Description of Symptoms: stress incontinence, urinary frequency, pelvic pain. HPI: Patient reports she always feels like I have to go to the bathroom. Patient states she typically can make it to the restroom with urge. States she will get up 3-4x/night to use restroom. States she does have stress incontinence. Patient drinks Diet Mt Dew throughout the day. Patient doesn't wear pads throughout the day unless she has a cold and knows she will be coughing a lot. Has had bladder infections her whole life, typically 1-3/year. Patient reports she has pelvic pain with UTIs and also has pain lingering, states sometimes they feel like muscle cramps. Reports pain with penetration States she does have an antibiotic she will take one pill after having intercourse or swimming Anything that puts me at high risk" States she had an bladder emptying scan and did empty fully states she feels like she is able to relax pelvic floor but does state she feels like she is always "tense" as she always feels like she has to go to the bathroom. 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 Bladder/Bowel: Objective Ortho standing alignment: iliac crest height level hip MMTs WFL Levator Ani: able to isolate and contract with instruction, cues and imagery Transverse ABdominis: able to isolate and contract with instruction, cues and imagery . Outcome Measures Pelvic Floor Distress Inventory score: Treatment Time in clinic started at 0845 Time (more content not included)... Normal [facility] Laboratory - Chemistry and C hemistry - challengeon 11-12-2021 HCG ( test) Ql (U) Negative [facility] Work Phone: Comment on above: Very dilute urine sp ecimens, as indicated by a low specificgravity, may not contain loan servicing representative levels of hCG. If is still suspected, a first morning urinespecimen should be collected 48 hours later and tested. Provider Note - ED v3on 03-0 Provider Note - ED v3 Provider Note: Chart Review: ED NOTES ED NOTES: Patient presents with concerns that she has a recurrent UTI. She states her symptoms started 2 days ago. Symptoms include urgency, frequency, burning, and bladder tenderness after urinating. Patient has also started to notice blood in urine as well. She denies fever, chills, nausea, or flank pain at this time. She states she typically gets about 2 UTIs per year, but recently has had four UTIs since Mar 2021. The infection clears with antibiotic treatment, but they have been recurring more often. The patient has followed with urology many years ago, currently does not see a urologist. She has been taking Azo for symptom relief, which typically works well for her. HISTORY OF PRESENTING ILLNESS SHANNON is a 45 year old Female and was seen by me at 28-Jul-2021 15:42. Triage Information: Most recent Vital Sign Value Date PAST MEDICAL HISTORY ALLERGIES/INTOLERANCES: Allergy Allergen: penicillins Type: Drug Category Reaction: Itching HEALTH HISTORY: No documented data. OUTPATIENT MEDICATIONS: Home Medications Review Status for Reconciliation: Complete Med Status: Patient Currently Takes Medications Drug Name: Multi Vitamin+ Instructions: null Drug Name: Macrobid 100 mg oral capsule Instructions: 1 cap(s) orally 2 times a day SIGNIFICANT EVENTS: Past Surgical History Description:Cholecystectom y Social/Behavioral Description:pt denies CHOIR MEMBER: Is : no Is : no REVIEW OF SYSTEMS All other systems reviewed and are negative REVIEW OF SYSTEMS: Comments See HPI PHYSICAL EXAM CONSTITUTIONAL: Well appearing, well nourished, awake, alert, oriented to person, place, time/situation and in no apparent distress. CARDIOVASCULAR: Normal rate, regular rhythm. Heart sounds S1, S2. No murmurs, rubs or gallops. PMI non-displaced. RESPIRATORY: Breath sounds clear and equal bilaterally. GASTROINTESTINAL: Abdominal Exam: soft and nondistended Bowel Sounds Detail: Bowel Sounds: normal Abdominal Tenderness: SUPRAPUBIC Abdominal Guarding: no guarding GENITOURINARY: Bladder: TENDER CVA Tenderness: no tenderness CRITICAL CARE VITAL SIGNS: T PRBP SpO2O2(LPM) %FiO2 Method 28-Jul-2021 15:44:[id number] 98 MDM MDM/ED COURSE: Patient was prescribed Macrobid BID for 7 days. Urinalysis positive for blood and small amount of leukocytes. Negative protein, glucose, ketones, and nitrites. urine sent for culture. Patient given resources for urology referral, she would like to do her own research and make an appointment herself. Patient educated regarding supportive care modalities, which she is very knowledgeable about already. Patient's clinical presentation is otherwise unremarkable at this time. Patient is discharged with instructions to follow-up with primary care or seek emergency medical attention for worsening symptoms or any new concerns. DISPOSITION Diagnosis/Annotation: ED Dx Name:Dysuria Code:R30.0 Disposition: discharged Type: home CONSULT CRITICAL CARE TIME Is this a critically ill patient: no Electronic Signatures: Bhavin Cody (MILITARY EQUIPMENT SPECIALIST-TIRE MECHANIC) (Signed 28-Jul-2021 16:21) Authored: ED Notes, HPI, PMH, ROS, PE, Results/Vital Signs, MDM/ED Course, Clinical Impression, Attestation, Chart Review, Scores Last Updated: 28-Jul-2021 16:21 by Bhavin Cody (MILITARY EQUIPMENT SPECIALIST-TIRE MECHANIC) [facility] URINE CULTURE,BACTERIALon URINE CULTURE,BACTERIAL PATIENT: SHANNON TEJADA LOCATION: [facility] [place] BILL#: [id number] : 73 AGE: SEX: F ORDERED BY: BHAVIN CODY SOURCE: URINE COLLECTED: 07/28/21 15:52 ANTIBIOTICS AT [facility].: RECEIVED : 07/28/21 23:35 SITE: R E S U L T S URINE CULTURE,BACTERIAL FINAL 07/30/21 12:09 ISOLATE1 : Escherichia coli >100,000 CFU/ML Organism E coli Antibiotic BP INTRP Ampicillin S Ceftriaxone S Cefazolin S Ciprofloxacin S Nitrofurantoin S Gentamicin S Levofloxacin S Piperc/Tazobact S Trimeth/Sulfa S S=SUSCEPTIBLE I=INTERMEDIATE R=RESISTANT SDD=SUSCEPTIBLE DOSE DEPENDENT NS=NONSUSCEPTIBLE X=REPORTED IN ERROR Normal [facility] Comment on above: Performed By: #### U [facility] #### [facility] [address] [place] [address] Provider Note - ED v3on 05-31 Provider Note - ED v3 Provider Note: Chart Review: ED NOTES ED NOTES: Female presents for evaluation of dysuria. Patient reports several days of increased urinary frequency, mild suprapubic discomfort, and change in urine color. Patient denies fever, nausea, vomiting, or other constitutional signs and symptoms. Patient reports similar episodes in the past diagnosed as urinary tract infections. Last UTI 04/02/2021 and was treated with Cipro. No other complaints. HISTORY OF PRESENTING ILLNESS SHANNON is a 45 year old Female and was seen by me at 23-Jun-2021 11:24. Triage Information: Most recent Vital Sign Value Date PAST MEDICAL HISTORY ALLERGIES/INTOLERANCES: Allergy Allergen: penicillins Type: Drug Category Reaction: Itching HEALTH HISTORY: No documented data. OUTPATIENT MEDICATIONS: Home Medications Review Status for Reconciliation: Complete Med Status: Patient Currently Takes Medications Drug Name: Multi Vitamin+ Instructions: null Drug Name: Bactrim DS 800 mg-160 mg oral tablet Instructions: 1 tab(s) orally 2 times a day SIGNIFICANT EVENTS: Past Surgical History Description:Cholecystectom y Social/Behavioral Description:pt denies CHOIR MEMBER: Is : no Is : no REVIEW OF SYSTEMS All other systems reviewed and are negative REVIEW OF SYSTEMS: Comments See HPI PHYSICAL EXAM CONSTITUTIONAL: Well appearing, well nourished, awake, alert, oriented to person, place, time/situation and in no apparent distress. GASTROINTESTINAL: Abdomen soft, non-distended, no rebound, no guarding, +suprapubic tenderness. Bowel sounds normal in all 4 quadrants. GENITOURINARY: No discharge, no lesions per pt report NEUROLOGICAL: Alert and oriented, no focal deficits, no motor or sensory deficits. SKIN: Skin normal color for race, warm, dry and intact. No evidence of trauma. PSYCHIATRIC: Alert and oriented to person, place, time/situation. normal mood and affect. No apparent risk to self or others. CRITICAL CARE VITAL SIGNS: T PRBP SpO2O2(LPM) %FiO2 Method 23-Jun-2021 11:02:00-36.420506/73 97 MDM MDM/ED COURSE: Rx Bactrim DS. Urine sent for culture. Urinalysis with small leukocytes, positive nitrites, uro 1.0, 100 mg/dl protein, large blood, sg 1.030, negative ketones, small bili and 100 mg/dl glucose. Pt states she did take AZO last PM. Encouraged to increase water intake, avoid caffeine/sugary drinks, wipe front to back after BM and voiding, void after intercourse. Patient's clinical presentation is otherwise unremarkable at this time. Patient is discharged with instructions to follow-up with primary care or seek emergency medical attention for worsening symptoms or any new concerns. DISPOSITION Diagnosis/Annotation: ED Dx Name:Burning with urination Code:R30.0 Disposition: discharged Type: home CONSULT CRITICAL CARE TIME Is this a critically ill patient: no Electronic Signatures: Bhavin Cody (MILITARY EQUIPMENT SPECIALIST-TIRE MECHANIC) (Signed 23-Jun-2021 12:30) Authored: ED Notes, HPI, PMH, ROS, PE, Results/Vital Signs, MDM/ED Course, Clinical Impression, Attestation, Chart Review, Scores Last Updated: 23-Jun-2021 12:30 by Bhavin Cody (MILITARY EQUIPMENT SPECIALIST-TIRE MECHANIC) [facility] URINE CULTURE,BACTERIALon URINE CULTURE,BACTERIAL PATIENT: SHANNON TEJADA LOCATION: [facility]#: [id number] : 73 AGE: SEX: F ORDERED BY: BHAVIN CODY SOURCE: URINE COLLECTED: 06/23/21 11:50 ANTIBIOTICS AT [facility].: RECEIVED : 06/24/21 00:06 SITE: R E S U L T S URINE CULTURE,BACTERIAL FINAL 06/25/21 15:58 ISOLATE1 : Escherichia coli 20,000-80,000 CFU/ML Organism E coli Antibiotic BP INTRP Ampicillin S Ceftriaxone S Cefazolin S Ciprofloxacin S Nitrofurantoin S Gentamicin S Levofloxacin S Piperc/Tazobact S Trimeth/Sulfa S S=SUSCEPTIBLE I=INTERMEDIATE R=RESISTANT SDD=SUSCEPTIBLE DOSE DEPENDENT NS=NONSUSCEPTIBLE X=REPORTED IN ERROR Normal [facility] Comment on above: Performed By: #### U [facility] #### [facility] [address] [place] [address] Provider Note - ED v3on 03-30 Provider Note - ED v3 Provider Note: Chart Review: ED NOTES ED NOTES: Female presents for evaluation of dysuria. Patient reports several days of increased urinary frequency, mild suprapubic discomfort, and change in urine color. Patient denies fever, nausea, vomiting, or other constitutional signs and symptoms. Patient reports last UTI 1 month ago which she thought completely cleared. No culture was done at that time. No other complaints. HISTORY OF PRESENTING ILLNESS SHANNON is a 45 year old Female and was seen by me at 10-Apr-2021 10:23. Triage Information: Most recent Vital Sign Value Date PAST MEDICAL HISTORY ALLERGIES/INTOLERANCES: Allergy Allergen: penicillins Type: Drug Category Reaction: Itching HEALTH HISTORY: No documented data. OUTPATIENT MEDICATIONS: Home Medications Review Status for Reconciliation: Complete Med Status: Patient Currently Takes Medications Drug Name: Multi Vitamin+ Instructions: null Drug Name: Cipro 500 mg oral tablet Instructions: 1 tab(s) orally 2 times a day SIGNIFICANT EVENTS: Past Surgical History Description:Cholecystectom y Social/Behavioral Description:pt denies CHOIR MEMBER: Is : no Is : no REVIEW OF SYSTEMS All other systems reviewed and are negative REVIEW OF SYSTEMS: Comments See HPI PHYSICAL EXAM CONSTITUTIONAL: Well appearing, well nourished, awake, alert, oriented to person, place, time/situation and in no apparent distress. GASTROINTESTINAL: Abdomen soft, non-distended, no rebound, no guarding, + suprapubic enderness.. Bowel sounds normal in all 4 quadrants. GENITOURINARY: No discharge, no lesions per pt report. NEUROLOGICAL: Alert and oriented, no focal deficits, no motor or sensory deficits. SKIN: Skin normal color for race, warm, dry and intact. No evidence of trauma. PSYCHIATRIC: Alert and oriented to person, place, time/situation. normal mood and affect. No apparent risk to self or others. CRITICAL CARE VITAL SIGNS: T PRBP SpO2O2(LPM) %FiO2 Method 10-Apr-2021 10:23:[id number]/86 99 MDM MDM/ED COURSE: Rx Cipro. Urine sent for culture. Urinalysis c/w UTI. Patient's clinical presentation is otherwise unremarkable at this time. Patient is discharged with instructions to follow-up with primary care or seek emergency medical attention for worsening symptoms or any new concerns. DISPOSITION Diagnosis/Annotation: ED Dx Name:Burning with urination Code:R30.0 Disposition: discharged Type: home CONSULT CRITICAL CARE TIME Is this a critically ill patient: no Electronic Signatures: Bhavin Cody (MILITARY EQUIPMENT SPECIALIST-TIRE MECHANIC) (Signed 10-Apr-2021 11:09) Authored: ED Notes, HPI, PMH, ROS, PE, Results/Vital Signs, MDM/ED Course, Clinical Impression, Attestation, Chart Review, Scores Last Updated: 10-Apr-2021 11:09 by Bhavin Cody (MILITARY EQUIPMENT SPECIALIST-TIRE MECHANIC) [facility] URINE CULTURE,BACTERIALon URINE CULTURE,BACTERIAL PATIENT: SHANNON TEJADA LOCATION: [facility]#: [id number] : 73 AGE: SEX: F ORDERED BY: BHAVIN CODY SOURCE: URINE COLLECTED: 04/10/21 10:33 ANTIBIOTICS AT [facility].: RECEIVED : 04/10/21 23:33 SITE: R E S U L T S URINE CULTURE,BACTERIAL FINAL 04/12/21 08:20 MULTIPLE ORGANISMS PRESENT, PROBABLE CONTAMINATION PLEASE REPEAT CULTURE. [facility] Comment on above: Performed By: #### U [facility] #### [facility] [address] [place] [address] Provider Note - ED v2on 10-0 Provider Note - ED v2 Provider Note - ED v2: Chart Review: ED NOTES ED NOTES: Reports to the clinic with 3-day history of urinary urgency and burning with urination. HISTORY OF PRESENTING ILLNESS SHANNON is a 45 year old Female and was seen by me at 04-Mar-2021 16:10. The historian is the patient. Triage Information: Most recent Vital Sign Value Date PAST MEDICAL HISTORY ATTESTATION: I have reviewed and confirmed nurse's/medic's notes for patient's medications, allergies, and medical, surgical, family and social history PSYCHOSOCIAL SCREENING: NO: concerns for safety at home, feelings of depression, feels like hurting others and feels like hurting self ALLERGIES/INTOLERANCES: Allergy Allergen: penicillins Type: Drug Category Reaction: Itching HEALTH HISTORY: No documented data. OUTPATIENT MEDICATIONS: Home Medications Review Status for Reconciliation: Complete Med Status: Patient Currently Takes Medications Drug Name: Multi Vitamin+ Instructions: null Drug Name: Bactrim DS 800 mg-160 mg oral tablet Instructions: 1 tab(s) orally 2 times a day SIGNIFICANT EVENTS: Past Surgical History Description:Cholecystectom y Social/Behavioral Description:pt denies CHOIR MEMBER: Is : no Is : no REVIEW OF SYSTEMS GENITOURINARY: POSITIVE for: dysuria and urgency; All other systems reviewed and are negative RESULTS/VITAL SIGNS VITAL SIGNS: T PRBP SpO2O2(LPM) %FiO2 Method 04-Mar-2021 15:49:[id number]/88 96 PHYSICAL EXAM CONSTITUTIONAL: Well appearing, well nourished, awake, alert, oriented to person, place, time/situation and in no apparent distress. HENMT: Airway patent. EYES: pupils are accommodating CARDIOVASCULAR: Normal rate, regular rhythm. RESPIRATORY: Breath sounds clear and equal bilaterally and unlabored. no Rales rhonchi or crackles. GASTROINTESTINAL: Abdomen soft, non-distended, no rebound, no guarding. GENITOURINARY: Bladder: TENDER CVA Tenderness: no tenderness MUSCULOSKELETAL: Spine appears normal, range of motion is not limited, no muscle or joint tenderness. NEUROLOGICAL: Alert and oriented, no focal deficits, no motor or sensory deficits. SKIN: Skin normal color for race, warm, dry and intact. No evidence of trauma. PSYCHIATRIC: Alert and oriented to person, place, time/situation. normal mood and affect. No apparent risk to self or others. HEME/LYMPH: No cervical adenopathy. CLINICAL IMPRESSION Diagnosis/Annotation: ED Dx Name:UTI (urinary tract infection) Code:N39.0 Disposition: discharged Type: home ATTESTATION Comments/Additional Findings: Patient will be started on a 7-day course of Bactrim. Patient educated on methods of preventing recurrent UTIs. Patient advised to drink plenty of fluids. Patient agreeable to this plan. CRITICAL CARE TIME Is this a critically ill patient: no Electronic Signatures: Katja James (MILITARY EQUIPMENT SPECIALIST-TIRE MECHANIC) (Signed 04-Mar-2021 16:12) Authored: ED Notes, HPI, PMH, ROS, PE, Results/Vital Signs, Clinical Impression, Attestation, Chart Review, Scores Last Updated: 04-Mar-2021 16:12 by Katja James (MILITARY EQUIPMENT SPECIALIST-TIRE MECHANIC) [facility] Pelvis Non-OB Limitedon 0 12-22-2017 US Pelvis Non-OB Limited Exam Date/Time:12/22/2017 10:59 EDTReason for Exam:RIGHT BUTTOCK LIPOMA;MassReportSTUDY:US Pelvis Non-OB Limited; 12/22/2017 10:59 amINDICATION:Mass.COMPARIS ON:None. ORDERING CLINICIAN:Lida Archer:Graysca le ultrasonographic images were obtained through the soft tissues posterior to the sacrum.FINDINGS:The rounded masslike area of fat density previously seen posterior to the sacrum is not seen on the current examination.IMPRESSION:Rou nded masslike area seen on prior study not clearly seen. FINAL REPORT Dictated: 12/22/2017 2:47 pm Bernardo Saunders MD CSigned (Electronic Signature): 12/22/2017 2:47 pmSigned by: Bernardo Saunders MD Technologist: ROXI [facility] MA Mamm Screen w/CAD if perf ormed bilaton 12-07-2017 MA Mamm Screen w/CAD if performed bilat Exam Date/Time:12/07/2017 08:05 EDTReason for Exam:BASELINE SCREENING;ScreeningReportS TUDY:Digital mammography screening; 12/07/2017 8:05 amACCESSION NUMBER(S):[id number] ORDERING CLINICIAN:Alivia MedaINDICATION:Screening.C OMPARISON:No prior studies are available for comparisonFINDINGS:CC and MLO 2D digital mammographic images of the bilateral breasts were obtained.There are areas of scattered fibroglandular tissue. No discrete mass or focal asymmetry is identified. No suspicious microcalcifications or foci of architectural distortion are seen. There has been no significant change.This study was interpreted with CAD.IMPRESSION:No mammographic evidence of malignancy.BI-RADS CATEGORY:Category: 1 - Negative.Recommendation: Normal Interval Follow-up, Over Age 40.Recall Interval: 12 Months.Breast Density: Scattered Fibroglandular Density. FINAL REPORT Dictated: 12/07/2017 10:14 am Bernardo Saunders MD CSigned (Electronic Signature): 12/07/2017 10:14 amSigned by: Bernardo Saunders MD Technologist: Jacksonment: BI-RADS Category 1-NegativeRecommendation: Normal interval follow-up Normal [facility] IGP W/hpv Rfx [id number] 11-29 Diagnosis: See Ref Lab Report Normal [facility] Comment on above: Order Comment: LMP: 11/03/17 Performed By: #### 2 [id number] ####DAVID [address] [place] [address] Pathology ([facility])on 11-23-2017 Pathology ([facility]) FINAL GYNECOLOGIC CY TOLOGY [id number] ADEQUACYSatisfactory for Evaluation. Endocervical cells/transformation zone componentpresent.GENERAL CATEGORIZATIONNegative for Intraepithelial Lesion or MalignancyCLINICAL HISTORYLMP: 11/03/2017SPECIMEN(A) SCREENING CERVICAL/ENDOCERVICAL THIN PREP VIALPerformed at [facility], [address] [address]Screened by: Signed Out by: MANINDER MOE Speech Coach Reported: 11/25/2017 Normal [facility] Comment on above: Performed By: #### G YN ####[facility] [address] [place] [address] US Pelvis Non-OB Limitedon 0 10-21-2017 US Pelvis Non-OB Limited Exam Date/Time:10/21/2017 08:15 EDTReason for Exam:ABD PAIN IN FEMALE SACRAL MASS SEEN ON XRAY 09/22/2017 EPIGASTRIC PAIN DYSPHAGIA;Abnormal massReportUS Pelvis Non-OB LimitedCLINICAL STATEMENT: Palpable lump in the sacral region.COMPARISON: Sacral radiographs September 22, 2017TECHNIQUE: Focused ultrasound of the sacrum was performed and targeted to thepalpable area of concern indicated by the patient.FINDINGS: At the palpable area of concern beneath the the skin surface, thereis a more well-defined area of oval-shaped median to high level internal echoesrelative to the surrounding subcutaneous tissues without internal Doppler flow.This measures wider than tall at 1.8 x 0.6 x 1.6 cm without acoustic shadowing.The appearance is suggestive of a lipoma. There are no fluid collections inthis region.IMPRESSION:At the palpable area of interest, there is an oval-shaped encapsulated solidmass minimally hyperechoic to the surrounding tissues measuring up to 1.8 cm,suggestive of a lipoma. If this does not correlate with clinical findings thenfurther evaluation with MRI maybe helpful. FINAL REPORT Dictated: 10/21/2017 11:46 am Huang Jeff DO (Electronic Signature): 10/21/2017 11:46 amSigned by: Tavo Jeff DO Technologist: JOSHUA [facility] XR Upper GI w/ Air Contrasto n 10-21-2017 XR Upper GI w/ Air Contrast Exam Date/Time:10/21/2017 09:17 EDTReason for Exam:ABD PAIN IN FEMALE SACRAL MASS SEEN ON XRAY 09/22/2017 EPIGASTRIC PAIN DYSPHAGIA;Other (pleasespecify)ReportEXAMI NATION: XR Upper GI w/ Air ContrastCLINICAL STATEMENT: Upper abdominal pain for 2 months. Sensation of a lump inthe throat when swallowing for 2 months.COMPARISON: None.FLUOROSCOPY TIME: Fluoro time measures 2 minutes and 43 seconds and 24 imageswere obtained.TECHNIQUE: Double contrast upper GI examination. Patient was administeredeffervescent crystals and barium.FINDINGS: Esophageal motility is normal. The esophagus shows normal contour.Mucosal pattern is grossly normal. There was spontaneous esophageal refluxnoted during the examination to the level of the upper thoracic esophagus.There is no hiatal hernia.Stomach is normal in size, shape and position. Barium flows freely through thepylorus into a normal-appearing duodenal bulb and loop. Incidentally noted is asmall diverticulum arising from the second portion of the duodenum medially.Gastric mucosal pattern is grossly normal with no discrete ulcerations.IMPRESSION:1. Gastroesophageal reflux disease.2. Duodenal diverticulum. FINAL REPORT Dictated: 10/21/2017 11:45 am Huang Jeff DO (Electronic Signature): 10/21/2017 11:45 amSigned by: Tavo Jeff DO Technologist: MARIA INES [facility] Auto Diffon 04-26-2018 Basophils Auto #/vol (Bld) 0.1 E3/mcL Normal 0.0-0.2 [facility] Comment on above: Order Comment: Order Added by Discern Expert. Performed By: #### 2 [id number] ####DAVID [address] [place] [address] Basophils/100 WBC Auto (Bld) 0.5 % Normal 0.0-2.0 [facility] Comment on above: Order Comment: Order Added by Discern Expert. Performed By: #### 2 [id number] ####DAVID CarlsonM[address]Lowp[address] [place] [address] Eos Absolute 0.1 E3/mcL Normal 0.0-0.7 [facility] Comment on above: Order Comment: Order Added by Discern Expert. Performed By: #### 2 [id number] ####ADVID [address] [place] [address] Eosinophils/100 WBC Auto (Bld) 0.6 % Normal 0.0-11.0 [facility] Comment on above: Order Comment: Order Added by Discern Expert. Performed By: #### 2 [id number] ####DAVID [address] [place] [address] Lymphocytes Auto #/vol (Bld) 2.1 E3/mcL Normal 1.2-3.4 [facility] Comment on above: Order Comment: Order Added by Discern Expert. Performed By: #### 2 [id number] ####DAVID [address] [place] [address] Lymphocytes/100 WBC Auto (Bld) 21.2 % Normal 20.0-55.0 [facility] Comment on above: Order Comment: Order Added by Discern Expert. Performed By: #### 2 [id number] ####DAVID [address] [place] [address] [place] Absolute 0.6 E3/mcL Normal 0.0-0.7 [facility] Comment on above: Order Comment: Order Added by Discern Expert. Performed By: #### 2 [id number] ####DAVID [address] [place] [address] Monocytes/100 WBC Auto (Bld) 6.1 % Normal 0.0-10.0 [facility] Comment on above: Order Comment: Order Added by Discern Expert. Performed By: #### 2 [id number] ####DAVID [address]Obct[address] [place] [address] Neutro Absolute 7.1 E3/mcL High 1.4-6.5 [facility] Comment on above: Order Comment: Order Added by Discern Expert. Performed By: #### 2 [id number] ####DAVID [address] [place] [address] Neutro Auto 71.6 % Normal 37.0-75.0 [facility] Comment on above: Order Comment: Order Added by Discern Expert. Performed By: #### 2 [id number] ####DAVID [address]Uwgv[address] [place] [address] BMPon 09-22-2017 Creatinine mass conc 0.6 mg/dL Normal 0.6-1.3 [facility] Comment on above: Performed By: #### 2 [id number] ####DAVIDAmeena CarlsonCrqKrox[address] [place] [address] Urea nitrogen mass conc 10 mg/dL Normal 7-18 [facility] Comment on above: Performed By: #### 2 [id number] ####DAVIDAmeena CastellonVgqYerc[address] [place] [address] Urea nitrogen/Creatinin e mass ratio 16.7 ratio Normal 5.4-30.0 [facility] Comment on above: Performed By: #### 2 [id number] ####DAVID [address] [place] [address] Calcium mass conc 9.4 mg/dL Normal 8.4-10.2 [facility] Comment on above: Performed By: #### 2 [id number] ####DAVID CarlsonHvoXnvb[address] [place] [address] Chloride molar conc 105 mmol/L Normal 98-107 [facility] Comment on above: Performed By: #### 2 [id number] ####DAVID [address]QtlLjwl[address] [place] [address] CO2 molar conc 26.4 mmol/L Normal 24.0-30.0 [facility] Comment on above: Performed By: #### 2 109333 ####DAVID [address]sonBtlWyqo[address] [place] [address] Glucose mass conc 92 mg/dL Normal 70-99 [facility] Comment on above: Performed By: #### 2 [id number] ####DAVID CarlsonMlwRrbr[address] [place] [address] Potassium molar conc 4.2 mmol/L Normal 3.5-5.1 [facility] Comment on above: Performed By: #### 2 [id number] ####DAVID [address]son[address]ugLy[address] [place] [address] Sodium molar conc 140 mmol/L Normal 136-145 [facility] Comment on above: Performed By: #### 2 [id number] ####DAVID [address] [place] [address] CBC w/ Auto Diffon 8 Erythrocyte distribution width Auto Ratio (RBC) 13.1 % Normal 11.5-14.5 [facility] Comment on above: Performed By: #### 2 [id number] ####DAVID [id number] Hematocrit Auto Volume Fraction (Bld) 43.5 % Normal 36.0-48.0 [facility] Comment on above: Performed By: #### 2 [id number] ####DAVID CarlsonVrgWxpt[address] [place] [address] Hemoglobin mass conc (Bld) 15.0 g/dL Normal 12.0-16.0 [facility] Comment on above: Performed By: #### 2 [id number] ####DAVID [address]Upef[address] [place] [address] MCH Auto Entitic mass (RBC) 31.9 pg High 27.0-31.0 [facility] Comment on above: Performed By: #### 2 [id number] ####DAVID CarlsonUydHzkw[address] [place] [address] MCHC Auto mass conc (RBC) 34.6 g/dL Normal 33.0-37.0 [facility] Comment on above: Performed By: #### 2 [id number] ####DAVID CarlsonQirUeer[address] [place] [address] MCV Auto Entitic volume (RBC) 92.2 fL Normal 78.0-100.0 [facility] Comment on above: Performed By: #### 2 [id number] ####DAVID [address] [place] [address] Platelet mean volume Auto Entitic volume (Bld) 10.4 fL Normal 7.4-11.0 [facility] Comment on above: Performed By: #### 2 [id number] ####DAVIDAmeena CarlsonEbyRrdv8734 [place] [address] Platelets Auto #/vol (Bld) 194 E3/mcL Normal 130-400 [facility] Comment on above: Performed By: #### 2 [id number] ####DAVID YekCosq6224 [place] [address] RBC Auto #/vol (Bld) 4.71 E6/mcL Normal 3.90-5.40 [facility] Comment on above: Performed By: #### 2 [id number] ####DAVIDAmeena CarlsonNiuVtnh0015 [place] [address] WBC Auto #/vol (Bld) 10.0 E3/mcL Normal 3.6-11.0 [facility] Comment on above: Performed By: #### 2 [id number] ####DAVIDAmeena CarlsonYzcVadh0858 [place] [address] Hep Func Panelon 09-22-2017 Albumin mass conc 4.1 g/dL Normal 3.2-5.0 [facility] Comment on above: Performed By: #### 2 [id number] ####DAVIDAmeena CarlsonFlkAsur2313 [place] [address] Albumin/Globulin mass ratio 1.4 {ratio} Normal 1.1-1.9 [facility] Comment on above: Performed By: #### 2 [id number] ####DAVIDAmeena CarlsonUwxMmwh7109 [place] [address] Alk Phos 49 Int._Unit/L Normal 42-121 [facility] Comment on above: Performed By: #### 2 [id number] ####DAVIDAmeena CarlsonIhfZwbt7787 [place] [address] ALT enzyme act/vol 16 Int._Unit/L Normal 10-40 [facility] Comment on above: Performed By: #### 2 [id number] ####DAVIDAmeena CarlsonYdcYqib6126 [place] [address] AST enzyme act/vol 12 Int._Unit/L Normal 10-42 [facility] Comment on above: Performed By: #### 2 [id number] ####DAVIDAmeena CarlsonDghMumy7659 [place] [address] Bili Direct .14 mg/dL Normal .00-.20 [facility] Comment on above: Performed By: #### 2 [id number] ####DAVIDAmeena CarlsonMovLxjk2687 [place] [address] Bili Indirect 0.9 Normal [facility] Comment on above: Result Comment: No e stablished ranges available for the Indirect Biliruben. Performed By: #### 2 [id number] ####DAVIDAmeena CarlsonDhrLwow8140 [place] [address] Bili Total 1.0 mg/dL Normal 0.2-1.0 [facility] Comment on above: Performed By: #### 2 [id number] ####DAVID CarlsonIbgNuxw2090 [place] [address] Globulin Calculated mass conc (S) 3.0 g/dL Normal 2.0-4.0 [facility] Comment on above: Performed By: #### 2 [id number] ####DAVIDAmeena CarlsonDzlYglz9317 [place] [address] Protein mass conc 7.1 g/dL Normal 6.4-8.3 [facility] Comment on above: Performed By: #### 2 [id number] ####DAVID CarlsonDzjNvkg0428 [place] [address] DweY8fxr 09-22-2017 Hemoglobin A1c/Hemoglobin.tot al mass fraction (Bld) 4.6 % Normal 4.0-6.3 [facility] Comment on above: Performed By: #### 3 [id number] ####DAVID Chemistry Manual Ecrhpbxezw8670 [place] [address] Lipase Levelon 09-22-2017 Lipase Lvl 32 U/L Normal 8-57 [facility] Comment on above: Performed By: #### 2 [id number] ####DAVID CarlsonVpsPnvd1410 [place] [address] Lipid Profileon 09-22-2017 Cholesterol in HDL mass conc 47 mg/dL Normal >=41 [facility] Comment on above: Performed By: #### 3 [id number] ####DAVID CarlsonAwdEaqn9354 [place] [address] Cholesterol in LDL mass conc 143 mg/dL High 0-130 [facility] Comment on above: Result Comment: <100 [id number] NEAR / ABOVE [id number] BORDERLINE [id number] HIGH>190 VERY HIGHCALC LDL NOT VALID WHEN TRIGLYCERIDE IS >400 MG/DL Performed By: #### 3 [id number] ####DAVID PpoRwhk4732 [place] [address] Cholesterol in VLDL mass conc 10 mg/dL Normal [facility] Comment on above: Performed By: #### 3 [id number] ####DAVID CkvMthe0585 [place] [address] Cholesterol mass conc 200 mg/dL Normal 50-200 [facility] Comment on above: Result Comment: TOTA L CHOLEESTEROL: <200 NORMAL 200 - 239 BORDERLINE HIGH >240 HIGH Performed By: #### 3 [id number] ####DAVID IneFxlb1273 [place] [address] Triglyceride mass conc 50 mg/dL Normal 35-150 [facility] Comment on above: Result Comment: <150 [id number] BORDERLINE [id number] HIGH>500 VERY HIGH Performed By: #### 3 [id number] ####DAVID KhjOpis7474 [place] [address] TSHon 09-22-2017 Thyrotropin Qn 1.51 mIU/m Normal 0.30-5.60 [facility] Comment on above: Performed By: #### 2 [id number] ####DAVID TjgKkpl9372 [place] [address] XR Sacrum and Coccyx Min 2 V iewson 09-22-2017 XR Sacrum and Coccyx Min 2 Views Exam Date/Time:09/22/2017 15:08 EDTReason for Exam:Pain, TraumaticReportXR Sacrum and Coccyx Min 2 Views, 09/22/2017 3:00 PMCLINICAL STATEMENT: Tail bone pain for one year. No known injury.COMPARISON: CT abdomen and pelvis 12/16/2012.FINDINGS: 3 views of the sacrum and coccyx were obtained. Note that portions ofthe sacrum and coccyx are obscured on the frontal views by overlying entericcontents. No acute fracture or malalignment is visualized. Sacral arcuate linesappear intact. SI joints and hip joints are symmetric. No sclerosis or bonyerosions. Pelvic ring appears intact. Soft tissues are unremarkable.IMPRESSION:No acute fracture or malalignment of the sacrum or coccyx. FINAL REPORT Dictated: 09/22/2017 7:27 pm Alex King MD LSigned (Electronic Signature): 09/22/2017 7:27 pmSigned by: Alex King MD Technologist: MARIA INES [facility] eGFRon 09-22-2017 eGFR AA >60 [facility] Comment on above: Order Comment: Order added by Discern Expert. Performed By: #### 1 [id number] ####DAVID Castellon1025 [place] [address] GFR/1.73 sq M predicted among non-blacks MDRD vol rate/area (S/P/Bld) mL/min/{1.73_m2} [facility] Comment on above: Order Comment: Order added by Discern Expert. Performed By: #### 1 [id number] ####DAVID CarlsonTyrXksx9185 [place] [address] Vital Signs Date Time Vital Sign Value Performing Clinician Facility 01-15-2025 08:09-0400 Body height 162.56 cm No Primary Care Physician [facility] 01-15-2025 08:09-0400 Body mass index (BMI) [Ratio] 35.9 kg/m2 No Primary Care Physician [facility] 01-15-2025 08:09-0400 Body weight 94.8 kg No Primary Care Physician [facility] 01-15-2025 08:09-0400 Diastolic blood pressure 79 mm[Hg] No Primary Care Physician [facility] 01-15-2025 08:09-0400 Heart rate 75 /min No Primary Care Physician [facility] 01-15-2025 08:09-0400 Systolic blood pressure 115 mm[Hg] No Primary Care Physician [facility] 12-08-2024 09:29-0400 Body temperature 98.1 [degF] Bhavin Diana MILITARY EQUIPMENT SPECIALIST-[employer] MECHANIC Work Phone: [facility] 12-08-2024 09:29-0400 Diastolic blood pressure 78 mm[Hg] Bhavin Diana MILITARY EQUIPMENT SPECIALIST-TIRE MECHANIC Work Phone: [facility] 12-08-2024 09:29-0400 Heart rate 72 /min Bhavin Evanwilfrido MILITARY EQUIPMENT SPECIALIST-TIRE MECHANIC Work Phone: [facility] 12-08-2024 09:29-0400 Respiratory rate 15 /min Bhavin Evanwilfrido MILITARY EQUIPMENT SPECIALIST-TIRE MECHANIC Work Phone: [facility] 12-08-2024 09:29-0400 SaO2% (BldA) [Mass fraction] 96 % Bhavin Evanwilfrido MILITARY EQUIPMENT SPECIALIST-TIRE MECHANIC Work Phone: [facility] 12-08-2024 09:29-0400 Systolic blood pressure 134 mm[Hg] Bhavin Cody MILITARY EQUIPMENT SPECIALIST-TIRE MECHANIC Work Phone: [facility] 08-08-2024 16:27-0400 Body height 163.8 cm Bhavin Cody MILITARY EQUIPMENT SPECIALIST-TIRE MECHANIC Work Phone: [facility] 08-08-2024 16:27-0400 Body mass index (BMI) [Ratio] 38.36 kg/m2 Bhavin Evanwilfrido MILITARY EQUIPMENT SPECIALIST-TIRE MECHANIC Work Phone: [facility] 08-08-2024 16:27-0400 Body temperature 97 [degF] Bhavin Cody MILITARY EQUIPMENT SPECIALIST-TIRE MECHANIC Work Phone: [facility] 08-08-2024 16:27-0400 Body weight 102.97 kg Bhavin Cody MILITARY EQUIPMENT SPECIALIST-TIRE MECHANIC Work Phone: [facility] 08-08-2024 16:27-0400 Diastolic blood pressure 86 mm[Hg] Bhavin Cody MILITARY EQUIPMENT SPECIALIST-TIRE MECHANIC Work Phone: [facility] 08-08-2024 16:27-0400 Heart rate 88 /min Bhavin Cody MILITARY EQUIPMENT SPECIALIST-TIRE MECHANIC Work Phone: [facility] 08-08-2024 16:27-0400 SaO2% (BldA) [Mass fraction] 96 % Bhavin Cody MILITARY EQUIPMENT SPECIALIST-TIRE MECHANIC Work Phone: [facility] 08-08-2024 16:27-0400 Systolic blood pressure 128 mm[Hg] Bhavin Cody MILITARY EQUIPMENT SPECIALIST-TIRE MECHANIC Work Phone: [facility] 04-06-2024 11:38-0500 Body height 163.8 cm Nila Scanlonman MILITARY EQUIPMENT SPECIALIST-TIRE MECHANIC Work Phone: [facility] 04-06-2024 11:38-0500 Body mass index (BMI) [Ratio] 38.36 kg/m2 Nila Lenka MILITARY EQUIPMENT SPECIALIST-TIRE MECHANIC Work Phone: [phone] [place] [address] 04-06-2024 11:38-0500 Body weight 102.97 kg Nila Scanlonman MILITARY EQUIPMENT SPECIALIST-TI[employer] MECHANIC Work Phone: [facility] 04-06-2024 11:38-0500 Diastolic blood pressure 83 mm[Hg] Nila Lenka MILITARY EQUIPMENT SPECIALIST-TIRE MECHANIC Work Phone: [facility] 04-06-2024 11:38-0500 Heart rate 91 /min Nila Scanlonman MILITARY EQUIPMENT SPECIALIST-TIRE MECHANIC Work Phone: [facility] 04-06-2024 11:38-0500 SaO2% (BldA) [Mass fraction] 98 % Nila Scanlonman MILITARY EQUIPMENT SPECIALIST-TIRE MECHANIC Work Phone: [facility] 04-06-2024 11:38-0500 Systolic blood pressure 138 mm[Hg] Nila Lenka MILITARY EQUIPMENT SPECIALIST-TIRE MECHANIC Work Phone: [facility] 03-29-2024 17:14-0400 Body height 163.8 cm Adelso Palomo MILITARY EQUIPMENT SPECIALIST-TIRE MECHANIC Work Phone: [facility] 03-29-2024 17:14-0400 Body mass index (BMI) [Ratio] 38.02 kg/m2 Adelso Palomo MILITARY EQUIPMENT SPECIALIST-TIRE MECHANIC Work Phone: [facility] 03-29-2024 17:14-0400 Body temperature 98.01 [degF] Adelso Palomo MILITARY EQUIPMENT SPECIALIST-TIRE MECHANIC Work Phone: [facility] 03-29-2024 17:14-0400 Body weight 102.06 kg Adelso Palomo MILITARY EQUIPMENT SPECIALIST-TIRE MECHANIC Work Phone: [facility] 03-29-2024 17:14-0400 Diastolic blood pressure 82 mm[Hg] Adelso Palomo MILITARY EQUIPMENT SPECIALIST-TIRE MECHANIC Work Phone: [facility] 03-29-2024 17:14-0400 Heart rate 94 /min Adelso Palomo MILITARY EQUIPMENT SPECIALIST-TIRE MECHANIC Work Phone: [facility] 03-29-2024 17:14-0400 Respiratory rate 20 /min Adelso Palomo MILITARY EQUIPMENT SPECIALIST-TIRE MECHANIC Work Phone: [facility] 03-29-2024 17:14-0400 SaO2% (BldA) [Mass fraction] 96 % Adelso Palomo MILITARY EQUIPMENT SPECIALIST-TIRE MECHANIC Work Phone: [facility] 03-29-2024 17:14-0400 Systolic blood pressure 139 mm[Hg] Adelos Palomo MILITARY EQUIPMENT SPECIALIST-TIRE MECHANIC Work Phone: [facility] 03-07-2023 09:03-0400 Body height 163.8 cm Jai Newbill PA-C Work Phone: [facility] 03-07-2023 09:03-0400 Body mass index (BMI) [Ratio] 33.39 kg/m2 Jai Newbill PA-C Work Phone: [facility] 03-07-2023 09:03-0400 Body weight 89.63 kg Jai Newbill PA-C Work Phone: [facility] 03-07-2023 09:03-0400 Diastolic blood pressure 69 mm[Hg] Jai Newbill PA-C Work Phone: [facility] 03-07-2023 09:03-0400 Heart rate 88 /min Jai Fuentes PA-C Work Phone: [facility] 03-07-2023 09:03-0400 Systolic blood pressure 101 mm[Hg] Jai Fuentes PA-C Work Phone: [facility] 06-18-2022 08:49-0500 Body height 163.8 cm Shannon Hull MD Work Phone: [facility] 06-18-2022 08:49-0500 Body weight 91.63 kg Shannon Hull MD Work Phone: [facility] 06-18-2022 08:49-0500 Diastolic blood pressure 68 mm[Hg] Shannon Hull MD Work Phone: [facility] 06-18-2022 08:49-0500 Systolic blood pressure 118 mm[Hg] Shannon Hull MD Work Phone: [facility] 11-12-2021 09:35-0400 Body temperature 98.2 [degF] [facility] Work Phone: 11-12-2021 09:35-0400 Diastolic blood pressure 70 mm[Hg] [facility] Work Phone: 11-12-2021 09:35-0400 Heart rate 74 /min [facility] Work Phone: 11-12-2021 09:35-0400 Respiratory rate 18 /min [facility] Work Phone: 11-12-2021 09:35-0400 SaO2% (BldA) [Mass fraction] 100 % [facility] Work Phone: 11-12-2021 09:35-0400 Systolic blood pressure 122 mm[Hg] [facility] Work Phone: 11-12-2021 06:48-0400 Body height 162.56 cm [facility] Work Phone: 11-12-2021 06:48-0400 Body mass index (BMI) [Ratio] 32.9 kg/m2 [facility] Work Phone: 11-12-2021 06:48-0400 Body weight 87 kg [facility] Work Phone: 07-28-2021 17:44-0500 Body height 162 cm Luz [place] Other Phone: [facility] 07-28-2021 17:44-0500 Body temperature 97.7 [degF] Luz [place] Other Phone: [facility] 07-28-2021 17:44-0500 Diastolic blood pressure 98 mm[Hg] Luz [place] Other Phone: [facility] 07-28-2021 17:44-0500 Heart rate 80 /min Luz [place] Other Phone: [facility] 07-28-2021 17:44-0500 SaO2% (BldA) [Mass fraction] 98 % Luz [place] Other Phone: [facility] 07-28-2021 17:44-0500 Systolic blood pressure 159 mm[Hg] Luz [place] Other Phone: [facility] 06-23-2021 13:02-0500 Body height 162.5 cm Luz [place] Other Phone: [facility] 06-23-2021 13:02-0500 Body temperature 97.52 [degF] Luz [place] Other Phone: [facility] 06-23-2021 13:02-0500 Diastolic blood pressure 73 mm[Hg] Luz [place] Other Phone: [facility] 06-23-2021 13:02-0500 Heart rate 92 /min Luz [place] Other Phone: [facility] 06-23-2021 13:02-0500 SaO2% (BldA) [Mass fraction] 97 % Luz [place] Other Phone: [facility] 06-23-2021 13:02-0500 Systolic blood pressure 121 mm[Hg] Luz [place] Other Phone: [facility] 04-10-2021 12:23-0500 Body height 162 cm Luz [place] Other Phone: [facility] 04-10-2021 12:23-0500 Body temperature 97.16 [degF] Luz [place] Other Phone: [facility] 04-10-2021 12:23-0500 Diastolic blood pressure 86 mm[Hg] Luz [place] Other Phone: [facility] 04-10-2021 12:23-0500 Heart rate 84 /min Luz [place] Other Phone: [facility] 04-10-2021 12:23-0500 SaO2% (BldA) [Mass fraction] 99 % Luz [place] Other Phone: [facility] 04-10-2021 12:23-0500 Systolic blood pressure 121 mm[Hg] Luz [place] Other Phone: [facility] 03-04-2021 17:49-0400 Body height 162 cm Luz [place] Other Phone: [facility] 03-04-2021 17:49-0400 Body temperature 97.7 [degF] Luz [place] Other Phone: [facility] 03-04-2021 17:49-0400 Diastolic blood pressure 88 mm[Hg] Luz [place] Other Phone: [facility] 03-04-2021 17:49-0400 Heart rate 88 /min Luz [place] Other Phone: [facility] 03-04-2021 17:49-0400 SaO2% (BldA) [Mass fraction] 96 % Luz [place] Other Phone: [facility] 03-04-2021 17:49-0400 Systolic blood pressure 138 mm[Hg] Luz Jett Phone: [facility] 08-19-2020 14:44-0400 Body weight 89.81 kg Shannon Hull [facility] 08-19-2020 14:44-0400 BP Diastolic 84 mm[Hg] Shannon Hull [facility] 08-19-2020 14:44-0400 BP Systolic 122 mm[Hg] Shannon Hull [facility] 08-19-2020 14:44-0400 Height 163.8 cm [facility] Encounters Encounter Date Encounter Type Care Provider Facility Start: 04-09-2025 End: 04-09-2025 ambulatory Gwendolyn Snow [facility] Start: 04-09-[address] [facility] Start: 03-29-2025 End: 03-29-[address] [facility] Facility:[facility] Start: 03-28-[address] [facility] Start: 01-15-2025 End: 01-15-[address] Gwendolyn Snow MD -[facility] Work Phone: Start: 01-15-2025 End: 01-15-2025 ambulatory No Primary Care Physician -[facility] Start: 12-08-2024 End: 12-08-2024 Patient encounter procedure Bhavin Cody MILITARY EQUIPMENT SPECIALIST-TI[employer] MECHANIC Work Phone: [facility] Comment on above: Acute cystitis with hematuria (Primary Dx); Dysuria Start: 12-08-2024 End: 12-08-2024 ambulatory NILA B [facility] Start: 11-27-2024 Non-patient / Non-visit Dr. Gwendolyn kelsey MD -[facility] Work Phone: Start: 08-08-2024 End: 08-08-2024 Patient encounter procedure Bhavin Cody MILITARY EQUIPMENT SPECIALIST-TIRE MECHANIC Work Phone: [facility] Comment on above: Acute non-recurrent maxillary sinusitis (Primary Dx) Start: 08-08-2024 End: 08-08-2024 ambulatory NILA Humphrey [facility] Start: 04-13-2024 End: 04-13-2024 ambulatory Ayala Heart Facility:[facility] Start: 04-07-2024 End: 04-07-2024 ambulatory NILA Humphrey [facility] Start: 04-07-2024 End: 04-07-2024 Encounter for general adult medical examination without abnormal findings NILA Yin [facility] Start: 04-06-2024 End: 04-06-2024 ambulatory [facility] Start: 04-06-2024 End: 04-06-2024 Encounter for general adult medical examination without abnormal findings [facility] Start: 04-06-2024 End: 04-06-2024 Office outpatient visit 25 minutes Nila Og MILITARY EQUIPMENT SPECIALIST-TIRE MECHANIC Work Phone: [facility] Comment on above: Bronchitis (Primary Dx); Health maintenance examination Start: 04-06-2024 End: 04-06-2024 Patient encounter status Nila Og MILITARY EQUIPMENT SPECIALIST-TIRE MECHANIC Work Phone: [facility] Work Phone: Start: 03-29-2024 End: 03-29-2024 Patient encounter procedure Adelso Leonard Palomo MILITARY EQUIPMENT SPECIALIST-TIRE MECHANIC Work Phone: [facility] Comment on above: Acute bronchitis, un specified organism (Primary Dx) Start: 03-29-2024 End: 03-29-2024 ambulatory [facility] Start: 03-24-2023 End: 03-24-2023 Subsequent hospital visit by physician [facility] Comment on above: Dizziness; Change in vision; Imbalance; Recurrent UTI; Memory change Start: 03-07-2023 End: 03-07-2023 [facility] Work Phone: [facility] Comment on above: Dizziness (Primary D x); Change in vision; Imbalance; Recurrent UTI; Memory change; Healthcare maintenance Start: 03-07-2023 End: 03-07-2023 Patient encounter status Jai Fuentes PA-C Work Phone: [facility] Work Phone: Start: 08-13-2022 Documentation procedure Mammog chani Coordinator [facility] Start: 08-13-2022 Letter encounter Mammography Coordinator [facility] Department Start: 08-12-2022 End: 08-12-2022 ambulatory SHANNON HULL Facility:[facility] Start: 06-18-2022 End: 06-18-2022 ambulatory SHANNON HULL Facility:[facility] Start: 06-18-2022 End: 06-18-2022 Patient encounter procedure Shannon Hull MD Work Phone: [facility]Gy[facility] Comment on above: Encounter for gyneco logical examination with abnormal finding (Primary Dx); Encounter for screening mammogram for breast cancer; Yeast vaginitis Start: 06-18-2022 End: 06-18-2022 Patient encounter status Shannon Hull MD Work Phone: [facility] Start: 04-15-2022 Patient encounter procedure [facility] Start: 03-24-2022 Chart Update Jai Fuentes Work Phone: [facility] Work Phone: Start: 03-22-2022 Chart Update Jai Fuentes Work Phone: [facility] Work Phone: Start: 03-01-2022 Office outpatient ne w 45 minutes Jai Fuentes Work Phone: [facility] Work Phone: Start: 03-01-2022 ambulatory Mr. Jai campos Gina Facility:[id number] Start: 02-02-2022 Patient encounter procedure Luz S [place] Work Phone: [facility] Work Phone: Start: 01-19-2022 Patient encounter procedure Luz Mcgraw Work Phone: [facility] Work Phone: Start: 01-11-2022 Patient encounter procedure Luz Mcgraw Work Phone: [facility] Work Phone: Start: 11-12-2021 End: 11-12-2021 Admission to same day surgery center [facility] Start: 08-17-2021 End: 08-17-2021 Patient encounter procedure [facility], [facility] Start: 07-28-2021 End: 07-28-2021 Emergency department patient visit Bhavin [facility]key [facility] Start: 06-23-2021 End: 06-23-2021 Emergency department patient visit Bhavin Sharkey [facility] Start: 04-10-2021 End: 04-10-2021 [facility] Start: 03-04-2021 End: 03-04-2021 Emergency department patient visit Katja Jacob [facility] Start: 08-19-2020 End: 08-19-2020 Patient encounter procedure Shannon Hull Work Phone: OB/Gynecology Comment on above: Menorrhagia with reg ular cycle (Primary Dx); Screening for cervical cancer; Encounter for screening for human papillomavirus (HPV); Encounter for screening mammogram for breast cancer; Encounter for gynecological examination with abnormal finding Start: 08-17-2020 End: 08-17-2020 Patient encounter procedure Shannon Hull Work Phone: [facility] Start: 08-17-2020 Results Only Shannon valdez Work Phone: OB/Gynecology Start: 02-02-2018 End: 02-02-2018 Patient encounter Mega Hayes Facility:Mega Hayes DO Start: 01-07-2018 End: 01-07-2018 Patient encounter Lida Bocanegra Facility:[facility] Start: 12-07-2017 End: 12-08-[address] [facility] Facility:[facility] Start: 12-06-2017 End: 12-07-2017 Patient encounter Luz Galvan [place] Facility:[facility] Start: 12-06-2017 End: 12-07-2017 Patient encounter Lida Bocanegra Facility:[facility] Start: 11-23-2017 End: 11-24-[address] [facility] Facility:[facility] Start: 11-23-2017 End: 11-24-[address] [facility] Facility:[facility] Start: 11-02-2017 End: 11-03-2017 Patient encounter Luz Galvan [place] Facility:[facility] Start: 10-21-2017 End: 10-22-2017 Patient encounter Luz Mandy [place] Facility:[facility] Start: 10-06-2017 End: 10-07-2017 Patient encounter Luz Galvan [facility] Services:[facility] Start: 09-22-2017 End: 09-23-2017 Patient encounter Luz Galvan [facility] Services:[facility] Start: 09-20-2017 End: 2017 Patient encounter Luz Mandy [facility] Procedures Date Procedure Procedure Detail Performing Clinician Start: 12-08-2024 Urnls dip stick/tabl et rgnt non-auto w/o micrscp Bhavin Cody MIL[employer]ARY EQUIPMENT SPECIALIST[employer] MECHANIC Work Phone: Start: 08-08-2024 Iadna streptococcus group a amplified probe tq Bhavin Cody MILITARY EQUIPMENT SPECIALIST-TIRE MECHANIC Work Phone: Start: 04-07-2024 Lipid 1996 panel - S dwain or Plasma Bhavin Cody MILITARY EQUIPMENT SPECIALIST-TIRE MECHANIC Work Phone: Start: 03-29-2024 POCT SARS-COV-2/FLU/ RSV PCR SYMPTOMATIC Adelso Culver MILITARY EQUIPMENT SPECIALIST-TIRE MECHANIC Work Phone: Start: 03-24-2023 Mri brain brain stem w/o w/contrast material Jai Fuentes PA-C Work Phone: Start: 03-12-2023 Lipid 1996 panel - S dwain or Plasma Antwan Mri Start: 08-12-2022 Mammography Mammograph y Coordinator Start: 03-20-2022 Lipid 1996 panel - S dwain or Plasma Jai Fuentes PA-C Work Phone: Start: 11-12-2021 Cysto,Biopsy Bladder Tumor,Fulg,Danny-C (Not Applicable) Start: 08-17-2021 US urinary tract Start: 09-08-2020 Mammography Shannon nguyen MD Work Phone: Start: 08-19-2020 Microscopic observat ion [Identifier] in Cervix by Cyto stain Jai Fuentes PA-C Work Phone: Start: 08-17-2020 PT ED OBSTETRICS & GYNECOLOGY Shannon Hull Work Phone: Cholecystectomy Jai toure Work Phone: Destructive procedur e of nerve Jai Fuentes Work Phone: Extraction of wisdom tooth [facility] Fuentes Work Phone: Plan of Treatment Date Care Activity Detail Author Start: 04-07-2029 Lipid panel Lipid Panel [facility] Start: 03-12-2028 Lipid panel Lipid Panel [facility] Start: 03-20-2027 Lipid panel Lipid Panel [facility] Start: 08-19-2025 HPV TESTING HPV TESTING [facility] Start: 08-19-2025 PAP TESTING PAP TESTING [facility] Start: 04-07-2025 Yearly Adult Physical Yearly Adult P hysical [facility] Start: 01-28-2025 Influenza vaccination Influenza Vacc ine (#1) [facility] Start: 2024 Pneumococcal vaccination Pneumococcal Vaccine (1 of 1 - PCV) [facility] Start: 2024 Zoster Vaccines (1 o f 2) Zoster Vaccines (1 of 2) [facility] Start: 05-08-2024 COVID-19 Vaccine (2 - Pfizer risk series) COVID-19 Vaccine (2 - Pfizer risk series) [facility] Start: 04-06-2024 End: 04-06-2025 25-hydroxyvitamin D3 [Mass/volume] in Serum or Plasma Vitamin D 25-Hydroxy,Total (for eval of Vitamin D levels) Lab Routine Health maintenance examination Expected: 04/06/2024 (Approximate), Expires: 04/06/2025 [facility] Work Phone: Comment on above: Expected: 04/06/2024 (Approximate), Expires: 04/06/2025 Start: 04-06-2024 End: 04-06-2025 CBC W Auto Differential panel - Blood CBC and Auto Differential Lab Routine Health maintenance examination Expected: 04/06/2024 (Approximate), Expires: 04/06/2025 [facility] Service Area Work Phone: Comment on above: Expected: 04/06/2024 (Approximate), Expires: 04/06/2025 Start: 04-06-2024 End: 04-06-2025 Lipid 1996 panel - Serum or Plasma Lipid Panel Lab Routine Health maintenance examination Expected: 04/06/2024 (Approximate), Expires: 04/06/2025 [facility] Work Phone: Comment on above: Expected: 04/06/2024 (Approximate), Expires: 04/06/2025 Start: 04-06-2024 End: 04-06-2025 TSH with reflex to Free T4 if abnormal TSH with reflex to Free T4 if abnormal Lab Routine Health maintenance examination Expected: 04/06/2024 (Approximate), Expires: 04/06/2025 [facility] Work Phone: Comment on above: Expected: 04/06/2024 (Approximate), Expires: 04/06/2025 Start: 01-29-2024 COVID-19 Vaccine ( season) COVID-19 Vaccine ( season) [facility] Start: 01-29-2024 Influenza vaccination Influenza Vacc ine (#1) [facility] Start: 08-20-2023 Screening for malign ant neoplasm of cervix [facility] Start: 08-13-2023 Mammography MAMMOGRAM [facility] Start: 08-13-2023 Screening for malign ant neoplasm of breast Mammogram [facility] Start: 03-07-2023 End: 03-07-2024 CBC panel - Blood by Automated count CBC Lab Routine Dizziness Change in vision Imbalance Recurrent UTI Memory change Healthcare maintenance Expected: 03/07/2023 (Approximate), Expires: 03/07/2024 [facility] Work Phone: Comment on above: Expected: 03/07/2023 (Approximate), Expires: 03/07/2024 Start: 03-07-2023 End: 03-07-2024 Cobalamin (Vitamin B12) [Mass/volume] in Serum or Plasma Vitamin B12 Lab Routine Dizziness Change in vision Imbalance Recurrent UTI Memory change Healthcare maintenance Expected: 03/07/2023 (Approximate), Expires: 03/07/2024 [facility] Work Phone: Comment on above: Expected: 03/07/2023 (Approximate), Expires: 03/07/2024 Start: 03-07-2023 End: 03-07-2024 Comprehensive metabolic 2000 panel - Serum or Plasma Comprehensive Metabolic Panel Lab Routine Dizziness Change in vision Imbalance Recurrent UTI Memory change Healthcare maintenance Expected: 03/07/2023 (Approximate), Expires: 03/07/2024 [facility] Work Phone: Comment on above: Expected: 03/07/2023 (Approximate), Expires: 03/07/2024 Start: 03-07-2023 End: 03-07-2024 Hemoglobin A1c/Hemoglobin.total in Blood Hemoglobin A1C Lab Routine Dizziness Change in vision Imbalance Recurrent UTI Memory change Healthcare maintenance Expected: 03/07/2023 (Approximate), Expires: 03/07/2024 [facility] Work Phone: Comment on above: Expected: 03/07/2023 (Approximate), Expires: 03/07/2024 Start: 03-07-2023 End: 03-07-2024 Lipid 1996 panel - Serum or Plasma Lipid Panel Lab Routine Dizziness Change in vision Imbalance Recurrent UTI Memory change Healthcare maintenance Expected: 03/07/2023 (Approximate), Expires: 03/07/2024 [facility] Work Phone: Comment on above: Expected: 03/07/2023 (Approximate), Expires: 03/07/2024 Start: 03-07-2023 End: 03-07-2024 MR Brain WO and W contrast IV MR brain w and wo IV contrast Imaging Routine Dizziness Change in vision Imbalance Recurrent UTI Memory change Expected: 03/07/2023, Expires: 03/07/2024 [facility] Service Area Work Phone: Comment on above: Expected: 03/07/2023 , Expires: 03/07/2024 Start: 03-07-2023 End: 03-07-2024 TSH with reflex to Free T4 if abnormal TSH with reflex to Free T4 if abnormal Lab Routine Dizziness Change in vision Imbalance Recurrent UTI Memory change Healthcare maintenance Expected: 03/07/2023 (Approximate), Expires: 03/07/2024 [facility] Work Phone: Comment on above: Expected: 03/07/2023 (Approximate), Expires: 03/07/2024 Start: 01-28-2023 Influenza vaccination Influenza Vacc ine (#1) [facility] Start: 05-30-2022 DEPRESSION ASSESSMENT DEPRESSION ASS ESSMENT [facility] Start: 02-02-2022 [id number], Provider: Janet Moser, Status: Pen, Time: 4:00 PM [id number], Provider: Janet Moser, Status: Pen, [facility]: 4:00 [facility] Start: 01-19-2022 [id number], Provider: Janet Moser, Status: Pen, Time: 7:00 AM [id number], Provider: Janet Moser, Status: Pen, Time: 7:00 AM [facility] Work [facility]: Start: 11-12-2021 Patient discharge [facility] Work Phone: Start: 09-08-2021 Mammography MAMMOGRAM [facility] Start: 10-02-2020 COVID-19 VACCINE (3 - Booster for Pfizer series) COVID-19 VACCINE (3 - Booster for Pfizer series) [facility] Start: 10-02-2020 COVID-19 Vaccine (3 - Pfizer series) COVID-19 Vaccine (3 - Pfizer series) [facility] Start: 01-29-2020 Influenza vaccination INFLUENZA (#1) [facility] Start: 09-22-2019 COLOGUARD (FIT-DNA) COLOGUARD (FIT-D NA) [facility] Start: 09-22-2019 Colonoscopy COLONOSCOPY [facility] Start: 09-22-2019 COLORECTAL CANCER SCREENING COLORECTAL CANCER SCREENING [facility] Start: 09-22-[address] COLONOGRAPHY [facility] Start: 09-22-2019 DIABETES SCREEN DIABETES SCREEN [facility] Start: 09-22-2019 FECAL OCCULT BLOOD FECAL OCCULT BLOO D [facility] Start: 09-22-2019 LIPID SCREEN LIPID SCREEN [facility] Start: 09-22-2019 SIGMOIDOSCOPY SIGMOIDOSCOPY [facility] Start: 2014 Mammography MAMMOGRAM [facility] Start: 2004 HPV TESTING HPV TESTING [facility] Start: 1996 DTaP/Tdap/Td Vaccine s (1 - Tdap) DTaP/Tdap/Td Vaccines (1 - Tdap) [facility] Start: 09-22-1995 PAP TESTING PAP TESTING [facility] Start: 09-22-1995 Screening for malign ant neoplasm of cervix HPV/Cotest [facility] Start: 1993 Hepatitis B Vaccines (1 of 3 - 19+ 3-dose series) Hepatitis B Vaccines (1 of 3 - 19+ 3-dose series) [facility] Start: 1993 Urine microalbumin profile DTAP,TDAP,TD (1 - Tdap) [facility] Start: 1992 HEPATITIS C SCREENING HEPATITIS C [facility] Start: 1992 Hepatitis C screening Hepatitis C [facility] Start: 1992 HIV SCREENING HIV SCREENING [facility] Start: 1986 Adult depression screening assessment DEPRESSION SCREENING [facility] Start: 09-22-1975 MMR Vaccines (1 of 1 - Standard series) MMR Vaccines (1 of 1 - Standard series) [facility] Start: 1974 HEPATITIS B (1 of 3 - 3-dose series) HEPATITIS B (1 of 3 - 3-dose series) [facility] Start: 1974 Hepatitis B Vaccines (1 of 3 - 3-dose series) Hepatitis B Vaccines (1 of 3 - 3-dose series) [facility] Start: 1974 HIV screening HIV Screening [facility] Start: 1974 Screening for malign ant neoplasm of colon [facility] Start: 1974 Yearly Adult Physical Yearly Adult P hysical [facility] Bacteria identified in Urine by Culture Urine Culture Microbiology Routine Acute cystitis with hematuria Ordered: 12/08/2024 [facility] Service Area Work Phone: Comment on above: Ordered: 12/08/2024 End: 08-19-2021 Complete blood count (hemogram) panel - Blood by Automated count CBC Lab Routine Menorrhagia with regular cycle 1 Occurrences starting 08/19/2020 until 08/19/2021 [facility] Comment on above: 1 Occurrences starti ng 08/19/2020 until 08/19/2021 Endometrial bx w/wo endocervix bx w/o dilat spx ENDOMETRIAL BIOPSY Procedures Routine Menorrhagia with regular cycle Ordered: 08/19/2020 [facility] Comment on above: Ordered: 08/19/2020 End: 07-18-2023 BRIAN SCREENING W ANDREE BRIAN SCREENING W ANDREE Radiology Routine Encounter for screening mammogram for breast cancer 1 Occurrences starting 06/18/2022 until 07/18/2023 [facility] Work Phone: Comment on above: 1 Occurrences starti ng 06/18/2022 until 07/18/2023 Microscopic observat ion [Identifier] in Vaginal fluid by Gram stain BACT/JILLIAN VAG GRAM STAIN Microbiology Routine Yeast vaginitis 06/18/2022 10:[address] [facility] Work Phone: End: 03-24-2023 MR Brain WO and W contrast IV [facility] Service Area Work Phone: Comment on above: Once for 1 Occurrenc es starting 03/24/2023 until 03/24/2023 PAP FLUID CERVICAL SCREENING PAP FLUID CERVICAL SCREENING Lab Routine Screening for cervical cancer Encounter for screening for human papillomavirus (HPV) Encounter for screening mammogram for breast cancer Ordered: 08/19/2020 [facility] Comment on above: Ordered: 08/19/2020 Patient referral [facility] Work Phone: PELVIC US WHI PELVIC US WHI An c Imaging Routine Menorrhagia with regular cycle Ordered: 08/19/2020 [facility] Comment on above: Ordered: 08/19/2020 PT ED OBSTETRICS & GYNECOLOGY PT ED OBSTETRICS & GYNECOLOGY Other 08/17/2020 [facility] End: 09-18-2021 Screening mammography bi 2-view breast inc cad BRIAN SCREENING Radiology Routine Screening for cervical cancer Encounter for screening for human papillomavirus (HPV) Encounter for screening mammogram for breast cancer 1 Occurrences starting 08/19/2020 until 09/18/2021 [facility] Comment on above: 1 Occurrences starti ng 08/19/2020 until 09/18/2021 End: 08-19-2021 TSH Qn TSH BLD Lab Routine Menorrhagia with regular cycle 1 Occurrences starting 08/19/2020 until 08/19/2021 [facility] Comment on above: 1 Occurrences starti ng 08/19/2020 until 08/19/2021 [facility] Immunizations Immunization Date Immunization Notes Care Provider Gilbert driver 04-17-2024 influenza virus vaccine, unspecified formulation Bhavin Cody MILIT[employer] EQUIPMENT SPECIALIST-TIRE MECHANIC Work Phone: [facility] Work Phone: 04-14-2023 influenza, injectabl e, quadrivalent, contains preservative Adelso Culver MILITARY EQUIPMENT SPECIALIST-TIRE MECHANIC Work Phone: [facility] Work Phone: 04-14-2023 influenza virus vaccine, unspecified formulation Adelso Culver MILITARY EQUIPMENT SPECIALIST-TIRE MECHANIC Work Phone: [facility] Work Phone: 03-11-2022 influenza, injectabl e, quadrivalent, preservative free Shannon Hull MD Work Phone: [facility] Work Phone: 03-11-2022 influenza virus vaccine, unspecified formulation Jai Fuentes PA-C Work Phone: [facility] Work Phone: 08-07-2020 COVID-19 vaccine (PFIZER-BIONTECH) Shannon Hull [facility] 07-18-2020 COVID-19 vaccine (PFIZER-BIONTECH) Shannon Hull [facility] Payers Date Payer Category Payer Self-pay [id number] 2022 Managed Care (Private) [id number] 2018 Unknown MMO MMO [employer] [id number] 2018-Present PPO [id number] 2018 Unknown [id number] 2017 Unknown 1974 Unknown [id number] 1974 Unknown [id number] 1974 Unknown [id number] 1974 Unknown [id number] 243 1974 Unknown [id number] 243 1974 Unknown [id number] 243 Unknown [id number] 62 Unknown [id number] 62 Unknown [id number] 62 Unknown [id number] 62 Unknown [id number] 62 Unknown [id number] 62 Social History Date Type Detail Facility Start: 09-05-2007 End: 03-19-2024 Tobacco smoking status NHIS Never smoker [facility] Start: 09-05-2007 End: 08-19-2020 Alcohol intake Not Asked [facility] Start: 1975 Sex Assigned At Not on file [facility] Start: 02-25-2023 End: 08-08-2024 Exposure to SARS-CoV-2 (event) Not sure [facility] Start: 11-13-2020 End: 11-02-2021 Tobacco smoking consumption unknown [facility] Start: 1975 Sex Assigned At Female W [facility] Start: 03-07-2023 End: 04-06-2024 Patient ingests cola containing caffeine Patient ingests cola containing caffeine [facility] Work Phone: Start: 06-18-2022 End: 04-06-2024 Tobacco use and exposure Smokeless tobacco non-user [facility] Start: 06-18-2022 Alcohol intake Ex-drinker (finding) [facility] Start: 03-07-2023 End: 04-06-2024 Alcohol intake Lifetime non-drinker (finding) [facility] Work Phone: Start: 03-07-2023 End: 04-06-2024 Tobacco use panel [facility] Work Phone: NEGATED: Highlighted rowStart: NINF History of tobacco use Passive smoker [facility] Work Phone: Goals Date Patient Goal Desired Activity /State Mental Status Date Assessment Result Facility 11-12-2021 Cognitive function Voice/Name [facility] Work Phone: Clinical Notes 04-15-2022 to 12-08-2024 Bhavin R ALFONSO Cody - 12/08/2024 9:25 AM EDTMorgan Alonzo ChuyanneALFONSO - 08/08/2024 4:25 PM EDTNila Og, ALFONSO - 04/06/2024 11:30 AM [place] Leonard Palomo, ALFONSO - 03/29/2024 5:30 PM EDT Note Date & Type Note Facility 12-08-2024 History of Presen t illness Narrative 49 y.o. female presents for evaluation of vaginal irritation and suprapubic tenderness that has been present for 1 week. States she has intermittent dysuria as well. Denies flank pains, vaginal discharge, vaginal itching, vaginal lesions, nausea, vomiting, diarrhea, bodyaches, fatigue or any other associated similar complaint. Recently had a UTI 1 month ago that she treated with Bactrim. Follows with urology and does have a supply of Bactrim at home that she takes with onset of symptoms and then follows up with urologist. States she did follow-up with urologist after 5-day course of Bactrim and she reports that they told her her UTI was resolved at that time. No OTC meds used for symptom management today. No other complaints. Vitals: 12/08/24 0929 BP: 134/78 Pulse: 72 Resp: 15 Temp: 36.7 C (98.1 F) SpO2: 96% RX Allergies[1] Medication Documentation Review Audit Reviewed by Adela De La Rosa MA (Test Baker) on 12/08/24 at 0928 Medication Order Taking? Sig Documenting Provider Last Dose Status albuterol 90 mcg/actuation inhaler [id number] Yes Inhale 2 puffs every 6 hours if needed for wheezing. Jai Fuentes PA-C Active azithromycin (Zithromax Z-Michael) 250 mg tablet [id number] Yes Take 2 tablets by mouth at once on day 1, then 1 tablet once a day on days 2-5. Take with a meal. ALFONSO Doll Active benzonatate (Tessalon) 100 mg capsule [id number] Yes Take 1-2 capsules (100-200 mg) by mouth every 8 hours if needed for cough. Do not crush or chew. ALFONSO Doll Active qhypjukkxlcbygu-brggmwahn-CB (Bromfed DM) 2-30-10 mg/5 mL syrup [id number] Yes Take 5 mL by mouth every 4 hours if needed for allergies, congestion or cough. Jai Fuentes PA-C Active cephalexin (Keflex) 250 mg capsule [id number] Yes Take 1 capsule (250 mg) by mouth once daily as needed (preventative for UTI). Historical Provider, Active clascoterone (Winlevi) 1 % cream [id number] Yes Apply topically 2 times a day. Historical Provider, Active estradiol (Estrace) 0.01 % (0.1 mg/gram) vaginal cream [id number] Yes Insert 0.5 Applicatorfuls (2 g) into the vagina once daily. Historical Provider, Active ivermectin (Soolantra) 1 % cream [id number] Yes Apply topically once daily. Historical Provider, Active predniSONE (Deltasone) 10 mg tablet [id number] Yes Take 6 tabs PO daily x1 day, then take 5 tabs daily x1 day, then take 4 tabs daily x1 day, then take 3 tabs daily x1 day, then take 2 tabs daily x1 day, then take 1 tab daily x1 day. Take with a meal. ALFONSO Doll Active promethazine-DM (Phenergan-DM) 6.25-15 mg/5 mL syrup [id number] Yes Take 5 mL by mouth every 6 hours if needed for cough. *caution - can cause drowsiness* ALFONSO Doll Active Medical History[2] Surgical History[3] ROS See HPI Physical Exam Vitals and nursing note reviewed. Constitutional: General: She is not in acute distress. Appearance: Normal appearance. She is not ill-appearing or toxic-appearing. Cardiovascular: Rate and Rhythm: Normal rate and regular rhythm. Abdominal: General: There is no distension. Palpations: Abdomen is soft. Tenderness: There is no abdominal tenderness. There is no right CVA tenderness, left CVA tenderness, guarding or rebound. Genitourinary: General: Normal vulva. Vagina: No vaginal discharge. Comments: Per pt report Skin: General: Skin is warm and dry. Neurological: General: No focal deficit present. Mental Status: She is alert and oriented to person, place, and time. Psychiatric: Mood and Affect: Mood normal. Behavior: Behavior normal. Recent Results (from the past hour) POCT UA (nonautomated w/o microscopy) manually resulted Collection Time: 12/08/24 10:06 AM Result Value Ref Range POC Color, Urine Yellow Straw, Yellow, Light-Yellow POC Appearance, Urine Cloudy (A) Clear POC Glucose, Urine NEGATIVE NEGATIVE mg/dl POC Bilirubin, Urine NEGATIVE NEGATIVE POC Ketones, Urine NEGATIVE NEGATIVE mg/dl POC Specific Plessis, Urine >=1.030 1.005 - 1.035 POC Blood, Urine TRACE-Intact (A) NEGATIVE POC PH, Urine 6.0 No Reference Range Established PH POC Protein, Urine NEGATIVE NEGATIVE mg/dl POC Urobilinogen, Urine 0.2 0.2, 1.0 EU/DL Poc Nitrite, Urine NEGATIVE NEGATIVE POC Leukocytes, Urine TRACE (A) NEGATIVE Assessment/Plan/MDM Shannon was seen today for burning with urination. Diagnoses and all orders for this visit: Acute cystitis with hematuria (Primary) - sulfamethoxazole-trimethoprim (Bactrim DS) 800-160 mg tablet; Take 1 tablet by mouth 2 times a day for 7 days. - fluconazole (Diflucan) 150 mg tablet; Take 1 tablet (150 mg) by mouth every 3 days for 2 doses. - Urine Culture Dysuria - POCT UA (nonautomated w/o microscopy) manually resulted Pt requesting course of Bactrim today as she states she does not tolerate a lot of antibiotics. States she plans to follow up with urology also. Requests when urine culture results to fax to urology and she will provide us with a number when results are available. Will also cover for vaginitis with Diflucan as patient reports vaginal irritation and burning sensation but no itching or labia edema/vaginal discharge and has been on Bactrim several times over the past few months. Patient's clinical presentation is otherwise unremarkable at this time. Patient is discharged with instructions to follow-up with primary care or seek emergency medical attention for worsening symptoms or any new concerns. I did personally review Shannon's past medical history, surgical history, social history, as well as family history (when relevant). In this case, I also oversaw the her drug management by reviewing her medication list, allergy list, as well as the medications that I prescribed during the UC course and/or recommended as an out-patient (including possible OTC medications such as acetaminophen, NSAIDs , etc). After reviewing the items above, I did look at previous medical documentation, such as recent hospitalizations, office visits, and/or recent consultations with PCP/specialist. SDOH: Another factor that I considered in Shannon's care was her Social Determinants of Health (SDOH). During this UC encounter, she did not have social determinants of health. Those SDOH influencing Shannon's care are: none Bhavin Cody CNP [facility] [1] Allergies Allergen Reactions Amoxicillin Hives Macrobid [Nitrofurantoin Monohyd/M-Cryst] Itching [2] Past Medical History: Diagnosis Date Personal history of diseases of the skin and subcutaneous tissue History of acne [3] Past Surgical History: Procedure Laterality Date OTHER SURGICAL HISTORY 03/01/2022 Uterine nerve ablation OTHER SURGICAL HISTORY 03/01/2022 Cholecystectomy OTHER SURGICAL HISTORY 03/01/2022 [place] tooth extraction documented in this encounter [facility] Work Phone: 08-08-2024 History of Presen t illness Narrative 48 y.o. female presents for evaluation of URI. Symptoms including cough, congestion, body aches, malaise, and headache have been present for several days and refractory to OTC meds. Developed sore throat the past day. No fever, chills, rashes, ear pain, nausea, vomiting, abdominal pain, CP, or SOB. No exacerbating factors. No known COVID 19/flu exposure. Vitals: 08/08/24 1627 BP: 128/86 Pulse: 88 Temp: 36.1 C (97 F) SpO2: 96% Allergies Allergen Reactions Amoxicillin Hives Macrobid [Nitrofurantoin Monohyd/M-Cryst] Itching Medication Documentation Review Audit Reviewed by Bina Alvarado MA (Test Baker) on 08/08/24 at 1626 Medication Order Taking? Sig Documenting Provider Last Dose Status albuterol 90 mcg/actuation inhaler [id number] Yes Inhale 2 puffs every 6 hours if needed for wheezing. Jai Fuentes PA-C Active azithromycin (Zithromax Z-Michael) 250 mg tablet [id number] Take 2 tablets by mouth at once on day 1, then 1 tablet once a day on days 2-5. Take with a meal. Patient not taking: Reported on 08/08/2024 Adelso Culver APRN-TIRE MECHANIC Active benzonatate (Tessalon) 100 mg capsule [id number] Take 1-2 capsules (100-200 mg) by mouth every 8 hours if needed for cough. Do not crush or chew. Patient not taking: Reported on 08/08/2024 Adelso Culver MILITARY EQUIPMENT SPECIALIST-TIRE MECHANIC Active tpyfenxxkptwaii-gnqelcrmg-BG (Bromfed DM) 2-30-10 mg/5 mL syrup [id number] Take 5 mL by mouth every 4 hours if needed for allergies, congestion or cough. Patient not taking: Reported on 08/08/2024 Jai Fuentes PA-C Active cephalexin (Keflex) 250 mg capsule [id number] Take 1 capsule (250 mg) by mouth once daily as needed (preventative for UTI). Patient not taking: Reported on 08/08/2024 Historical Provider, Active clascoterone (Winlevi) 1 % cream [id number] Yes Apply topically 2 times a day. Historical ProviderMD Active estradiol (Estrace) 0.01 % (0.1 mg/gram) vaginal cream [id number] Yes Insert 0.5 Applicatorfuls (2 g) into the vagina once daily. Historical ProviderMD Active ivermectin (Soolantra) 1 % cream [id number] Yes Apply topically once daily. Historical Provider, Active predniSONE (Deltasone) 10 mg tablet [id number] Take 6 tabs PO daily x1 day, then take 5 tabs daily x1 day, then take 4 tabs daily x1 day, then take 3 tabs daily x1 day, then take 2 tabs daily x1 day, then take 1 tab daily x1 day. Take with a meal. Patient not taking: Reported on 08/08/2024 Adelso Culver MILITARY EQUIPMENT SPECIALIST-TIRE MECHANIC Active promethazine-DM (Phenergan-DM) 6.25-15 mg/5 mL syrup [id number] Take 5 mL by mouth every 6 hours if needed for cough. *caution - can cause drowsiness* Patient not taking: Reported on 08/08/2024 Adelso Culver APRN-FER Active Past Medical History: Diagnosis Date Personal history of diseases of the skin and subcutaneous tissue History of acne Past Surgical History: Procedure Laterality Date OTHER SURGICAL HISTORY 03/01/2022 Uterine nerve ablation OTHER SURGICAL HISTORY 03/01/2022 Cholecystectomy OTHER SURGICAL HISTORY 03/01/2022 [place] tooth extraction ROS See HPI Physical Exam Vitals and nursing note reviewed. Constitutional: Appearance: She is ill-appearing (mildly). HENT: Head: Normocephalic and atraumatic. Right Ear: Tympanic membrane and ear canal normal. Left Ear: Tympanic membrane and ear canal normal. Nose: Congestion present. Mouth/Throat: Pharynx: Posterior oropharyngeal erythema present. Comments: No tonsillar edema Eyes: Extraocular Movements: Extraocular movements intact. Conjunctiva/sclera: Conjunctivae normal. Pupils: Pupils are equal, round, and reactive to light. Cardiovascular: Rate and Rhythm: Normal rate. Pulmonary: Effort: Pulmonary effort is normal. Breath sounds: Normal breath sounds. Lymphadenopathy: Cervical: Cervical adenopathy present. Skin: General: Skin is warm and dry. Neurological: General: No focal deficit present. Mental Status: She is alert and oriented to person, place, and time. Psychiatric: Mood and Affect: Mood normal. Behavior: Behavior normal. Recent Results (from the past hour) POCT Group A Streptococcus, PCR manually resulted Collection Time: 08/08/24 5:13 PM Result Value Ref Range POC Group A Strep, PCR Not Detected Not Detected Assessment/Plan/MDM Shannon was seen today for uri. Diagnoses and all orders for this visit: Acute non-recurrent maxillary sinusitis (Primary) - doxycycline (Adoxa) 100 mg tablet; Take 1 tablet (100 mg) by mouth 2 times a day for 7 days. Take with a full glass of water and do not lie down for at least 30 minutes after - predniSONE (Deltasone) 20 mg tablet; Take 1 tablet (20 mg) by mouth once daily for 5 days. - POCT Group A Streptococcus, PCR manually resulted Encouraged pt to use otc cold remedies PRN, push PO fluids and rest. Patient's clinical presentation is otherwise unremarkable at this time. Patient is discharged with instructions to follow-up with primary care or seek emergency medical attention for worsening symptoms or any new concerns. I did personally review Shannon's past medical history, surgical history, social history, as well as family history (when relevant). In this case, I also oversaw the her drug management by reviewing her medication list, allergy list, as well as the medications that I prescribed during the UC course and/or recommended as an out-patient (including possible OTC medications such as acetaminophen, NSAIDs , etc). After reviewing the items above, I did look at previous medical documentation, such as recent hospitalizations, office visits, and/or recent consultations with PCP/specialist. SDOH: Another factor that I considered in Shannon's care was her Social Determinants of Health (SDOH). During this UC encounter, she did not have social determinants of health. Those SDOH influencing Shannon's care are: none Bhavin Cody CNP [facility] [phone] documented in this encounter [facility] Work Phone: 04-06-2024 History of Presen t illness Narrative Subjective Patient ID: Shannon Tejada is a 48 y.o. female who presents for transferring care (Est care today). HPI Here today for yearly visit and to establish with me Was seen in urgent care for URI/bronchitis. She was currently treated with azithromycin, prednisone and cough syrup. Will add doxy for full coverage since she is still coughing and does not feel well. Denies chest pain Review of Systems Constitutional: Negative for chills, fatigue and fever. Respiratory: Negative for cough and shortness of breath. Cardiovascular: Negative for chest pain, palpitations and leg swelling. Gastrointestinal: Negative for abdominal pain, constipation, diarrhea, nausea and vomiting. Genitourinary: Negative for dysuria. Neurological: Negative for light-headedness and headaches. Psychiatric/Behavioral: Negative for sleep disturbance. The patient is not nervous/anxious. Objective BP 138/83 Pulse 91 Ht 1.638 m (5' 4.5") Wt 103 kg (227 lb) LMP 03/12/2024 SpO2 98% BMI 38.36 kg/m Physical Exam Cardiovascular: Rate and Rhythm: Normal rate and regular rhythm. Heart sounds: Normal heart sounds. Pulmonary: Breath sounds: Normal breath sounds. Abdominal: General: Bowel sounds are normal. Skin: Capillary Refill: Capillary refill takes less than 2 seconds. Neurological: Mental Status: She is alert and oriented to person, place, and time. Assessment/Plan Problem List Items Addressed This Visit None Visit Diagnoses Codes Bronchitis - Primary J40 Relevant Medications doxycycline (Vibramycin) 100 mg capsule Health maintenance examination Z00.00 Relevant Orders CBC and Auto Differential TSH with reflex to Free T4 if abnormal Lipid Panel Vitamin D 25-Hydroxy,Total (for eval of Vitamin D levels) Yearly physical -Follows OB for pap and mammo on 04/13 -Colonoscopy declines at this time, will consider next year -lab work ordered Bronchitis -Doxy, Albuterol, prednisone taper from documented in this encounter [facility] Work Phone: 03-29-2024 History of Presen t illness Narrative [facility] ALFONSO Doll Visit Note - 03/29/2024 6:15 PM This note was generated with voice recognition software and may contain errors including spelling, grammar, syntax, and misrecognization of what was dictated. Patient: Shannon Tejada, , 48 y.o., female PCP: Jai Fuentes PA-C ----- ALLERGIES: Allergies Allergen Reactions Amoxicillin Hives Macrobid [Nitrofurantoin Monohyd/M-Cryst] Itching CURRENT MEDICATIONS: Current Outpatient Medications Medication Instructions azithromycin (Zithromax Z-Michael) 250 mg tablet Take 2 tablets by mouth at once on day 1, then 1 tablet once a day on days 2-5. Take with a meal. benzonatate (TESSALON) 100-200 mg, oral, Every 8 hours PRN, Do not crush or chew. cephalexin (KEFLEX) 250 mg, oral, Daily PRN clascoterone (Winlevi) 1 % cream 2 times daily ivermectin (Soolantra) 1 % cream Daily predniSONE (Deltasone) 10 mg tablet Take 6 tabs PO daily x1 day, then take 5 tabs daily x1 day, then take 4 tabs daily x1 day, then take 3 tabs daily x1 day, then take 2 tabs daily x1 day, then take 1 tab daily x1 day. Take with a meal. promethazine-DM (Phenergan-DM) 6.25-15 mg/5 mL syrup 5 mL, oral, Every 6 hours PRN, *caution - can cause drowsiness* ----- PAST MEDICAL HX: History of rosacea. No other known health issues. SURGICAL HX: Past Surgical History: Procedure Laterality Date OTHER SURGICAL HISTORY 03/01/2022 Uterine nerve ablation OTHER SURGICAL HISTORY 03/01/2022 Cholecystectomy OTHER SURGICAL HISTORY 03/01/2022 [place] tooth extraction FAMILY HX: No pertinent history. SOCIAL HX: reports that she has never smoked. She has never used smokeless tobacco. ----- CHIEF COMPLAINT: Chief Complaint Patient presents with URI Cough, headache,sinus congestion,sob X 5 days HISTORY OF PRESENT ILLNESS: The history was obtained from patient. Shannon is a 48 y.o. female, who presents with a chief complaint of nasal congestion, PND, a persistent, productive cough (yellow phlegm), headaches, and fatigue - sxs started 8 days ago. Reports has also had post-tussive gagging, and her ribs and back are sore from coughing so hard. Denies any fever/chills, body aches, ear pain, abdominal pain, chest pain, wheezing/shortness of breath, rashes, urinary symptoms, vomiting, and diarrhea. Denies any lightheadedness or dizziness; no changes in mental status. No swelling in legs. Appetite is normal; is able to eat and drink fluids without difficulty; denies loss of sense of taste or smell now, but reports she lost both of these at onset of symptoms. Reports symptoms have persisted without much change since onset. Has been taking Dayquil and Robitussin without much relief; no other bztq-gfh-bmchitl medications or home remedies for symptom management. 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 Has received the COVID vaccine x 2; Has not received this season's influenza vaccine. Last known COVID infection was in 2019. Is not a smoker. No known history of asthma/COPD/respiratory issues. Was recently on Keflex for treatment of a UTI. REVIEW OF SYSTEMS: 10 systems reviewed negative with exception of history of present illness as listed above. TODAY'S VITALS: BP 139/82 Pulse 94 Temp 36.7 C (98 F) Resp 20 Ht 1.638 m (5' 4.5") Wt 102 kg (225 lb) LMP 03/12/2024 SpO2 96% BMI 38.02 kg/m PHYSICAL EXAMINATION: General: Mildly ill-appearing, well nourished female; alert and oriented; in no acute distress. Sitting comfortably on exam table. Non-dyspneic. Eyes: Pupils equal, round and reactive to light. No conjunctival erythema; no scleral icterus. HENT: No frontal or maxillary sinus tenderness; + audible nasal congestion. Airway patent, TMs and ear canals clear/unremarkable bilaterally. Nasal mucosa mildly injected and edematous. Oral mucosa moist. Posterior pharynx mildly injected but without vesicles or oropharyngeal exudate aside from PND. Uvula is midline. Managing oral secretions without difficulty. Neck: Supple. Mildly tender, mobile anterior cervical lymphadenopathy bilat. Trachea is midline. Respiratory: Respirations easy and unlabored, Breath sounds equal. Lungs are clear to auscultation; no wheezes, rhonchi, or rales; has good air movement throughout. + harsh, semi-productive cough noted - having coughing fits during visit. Non-dyspneic with ambulation; able to maintain SpO2. Cardiovascular: Normal rate, Regular rhythm. Normal S1S2. No m/r/g. No peripheral edema. Gastrointestinal: Soft, non-tender, non-distended; no palpable masses or organomegaly. Bowel sounds normoactive. Musculoskeletal: Grossly normal; appropriate for age. Integumentary: [place], warm, dry, and intact. No rashes or skin discoloration appreciated. Good skin turgor. Neurologic: Alert and oriented, no gross deficits. Cognition and Speech: Oriented, Speech clear and coherent. Psychiatric: Cooperative, Appropriate mood & affect. ----- Medical Decision Making LABORATORY or RADIOLOGICAL IMAGING ORDERS/RESULTS: COVID/influenza/RSV tests done - results pending. IMPRESSION/PLAN: Course: Worsening; stable 1. Acute bronchitis, unspecified organism (Primary) - POCT SARS-COV-2/FLU/RSV PCR SYMPTOMATIC manually resulted - azithromycin (Zithromax Z-Imchael) 250 mg tablet; Take 2 tablets by mouth at once on day 1, then 1 tablet once a day on days 2-5. Take with a meal. Dispense: 6 tablet; Refill: 0 - predniSONE (Deltasone) 10 mg tablet; Take 6 tabs PO daily x1 day, then take 5 tabs daily x1 day, then take 4 tabs daily x1 day, then take 3 tabs daily x1 day, then take 2 tabs daily x1 day, then take 1 tab daily x1 day. Take with a meal. Dispense: 21 tablet; Refill: 0 - promethazine-DM (Phenergan-DM) 6.25-15 mg/5 mL syrup; Take 5 mL by mouth every 6 hours if needed for cough. *caution - can cause drowsiness* Dispense: 120 mL; Refill: 0 - benzonatate (Tessalon) 100 mg capsule; Take 1-2 capsules (100-200 mg) by mouth every 8 hours if needed for cough. Do not crush or chew. Dispense: 60 capsule; Refill: 0 No red flags on exam today. Discussed CXR but patient requesting to defer at this time. COVID/influenza/RSV tests today were negative. Symptoms consistent with acute bronchitis, but reviewed other potential etiologies. Due to severity and duration of symptoms, will begin treatment with Zithromax and prednisone taper today; will also start cough medication (Benzonatate for PRN use during the day, and Promethazine DM for PRN use at night) . Instructed to push fluids, rest, and to use appropriate over the counter medications as needed for management of symptoms - plain Mucinex may be helpful. Reviewed instructions for self-isolation and continued monitoring. Reviewed red flags to monitor for, counseled on potential adverse reactions of treatments, expectations for improvement in sxs, and advised to follow-up with primary care provider in 2-3 days if symptoms persist, or to seek care sooner if worsening or if any additional concerns/red flags develop. Patient agreed with plan of care; questions were encouraged and answered. ALFONSO Doll Advanced Practice Provider [facility] documented in this encounter [facility] Work Phone: 03-07-2023 History of Presen t illness Narrative Subjective Patient ID: Shannon Tejada is a 47 y.o. female who presents for Follow-up (FU 1 year, patient mentions having symptoms of memory loss, left shoulder and right foot nerve sensation, dizzy spells and left eye slowing opening when opening eyes x 1 year intermittently. Patient states has an aunt dx with MS.). HPI Patient presents for annual follow-up. Patient is concerned about a collection of symptoms that have been progressively worsening over the past several years. Patient reports intermittent dizziness/vertigo, changes in vision, imbalance, reduced memory, and recurrent UTIs. Patient is managed by urology for the UTIs. Patient states that the dizziness and vertigo have been a problem for several years but have progressively worsened lately. At its worst, it can affect gait substantially. Patient has a family member that has MS and is concerned this might be the case. Patient is current with mammograms. Review of Systems Constitutional: See HPI ENT: See HPI Neurologic: See HPI All other systems are negative Objective BP 101/69 Pulse 88 Ht 1.638 m (5' 4.5") Wt 89.6 kg (197 lb 9.6 oz) BMI 33.39 kg/m Physical Exam General: Alert and oriented, No acute distress. Eye: Pupils are equal, round and reactive to light, Extraocular movements are intact, Normal conjunctiva. HENT: Normocephalic, Normal hearing, Oral mucosa is moist, No pharyngeal erythema, No sinus tenderness. Neck: Supple, Non-tender, No lymphadenopathy. Respiratory: Lungs are clear to auscultation, Respirations are non-labored, Breath sounds are equal Cardiovascular: Normal rate, Regular rhythm. Gastrointestinal: Non-distended. Musculoskeletal: Normal range of motion, Normal strength, No tenderness, No swelling, No deformity, Normal gait. Integumentary: Warm, Dry, Intact, No pallor, No rash. Neurologic: Alert, Oriented, Normal sensory, Normal motor function, No focal deficits, Cranial Nerves II-XII are grossly intact Psychiatric: Cooperative, Appropriate mood & affect. Assessment/Plan Dizziness/change in vision/imbalance/memory change/recurrent UTI: MRI brain with and without contrast ordered. Screening labs obtained last year were unremarkable. We will order these again for the patient to obtain earliest convenience. Further recommendations pending results. Problem List Items Addressed This Visit None Visit Diagnoses Dizziness - Primary Relevant Orders MR brain w and wo IV contrast Lipid Panel TSH with reflex to Free T4 if abnormal Hemoglobin A1C CBC Comprehensive Metabolic Panel Vitamin B12 Change in vision Relevant Orders MR brain w and wo IV contrast Lipid Panel TSH with reflex to Free T4 if abnormal Hemoglobin A1C CBC Comprehensive Metabolic Panel Vitamin B12 Imbalance Relevant Orders MR brain w and wo IV contrast Lipid Panel TSH with reflex to Free T4 if abnormal Hemoglobin A1C CBC Comprehensive Metabolic Panel Vitamin B12 Recurrent UTI Relevant Orders MR brain w and wo IV contrast Lipid Panel TSH with reflex to Free T4 if abnormal Hemoglobin A1C CBC Comprehensive Metabolic Panel Vitamin B12 Memory change Relevant Orders MR brain w and wo IV contrast Lipid Panel TSH with reflex to Free T4 if abnormal Hemoglobin A1C CBC Comprehensive Metabolic Panel Vitamin B12 Healthcare maintenance Relevant Orders Lipid Panel TSH with reflex to Free T4 if abnormal Hemoglobin A1C CBC Comprehensive Metabolic Panel Vitamin B12 Final diagnoses: [R42] Dizziness [H53.9] Change in vision [R26.89] Imbalance [N39.0] Recurrent UTI [R41.3] Memory change [Z00.00] Healthcare maintenance documented in this encounter [facility] Work Phone: 08-13-2022 Miscellaneous Notes August 16, 2022 PID: [id number] Shannon Tejada [address] [place] [address] Dear Ms. Tejada, We are pleased to inform you that the results of your recent breast imaging exam on 08/12/2022 are normal. Early detection of cancer is very important. We also understand recommendations regarding breast cancer screening are controversial. Please discuss with your primary care provider which strategy is best for you and whether a mammogram is right for you. Your imaging studies and report will be kept on file at [facility] as part of your permanent medical record and are available for your continuing care. Thank you for allowing us to help in meeting your health care needs. Sincerely, Dr. Kelly Interpreting Radiologist [facility] (Normal over 40) documented in this encounter [facility] 08-12-2022 Note HNO ID: [id number] Author: RT Giovanni(R) Service: ? Author Type: Technologist Type: Progress Notes Filed: 08/12/2022 10:53 AM Note Text: Radiology Service Progress Note PATIENT NAME: Shannon Tejada DATE OF SERVICE: August 12, 2022 TIME: 10:53 AM PATIENT IDENTITY VERIFICATION COMPLETED USING TWO (2) IDENTIFIERS: Name and Date of confirmed by patient verbally. FALL SCREENING: Has the patient had 2 falls in the last year or 1 fall with injury or currently using an Ambulatory Assistive Device (Walker, Cane, Wheelchair, Crutches, etc.)? No PATIENT GENDER DATA: Female. status: : No status: NO. PATIENT RELEVANT IMPLANT DATA REVIEWED: Not Applicable RADIOLOGY DEPARTMENT: Mammography PERIPHERAL IV DATA: Not applicable SIGNED BY: RT Giovanni(R) August 12, 2022 10:53 AM [facility] 06-18-2022 Miscellaneous Notes Addended by: SHANNON HULL on: 06/18/2022 10:48 AM Modules accepted: Orders Addended by: TERESA FELIX MA on: 06/18/2022 09:25 AM Modules accepted: Orders documented in this encounter [facility] 06-18-2022 Note HNO ID: [id number] Author: Shannon Hull MD Service: ? Author Type: Physician Type: Progress Notes Filed: 06/18/2022 9:11 AM Note Text: Shannon is a 46 year old who presents for an annual gynecologic exam with complaints, some recurrent UTIS and had to have a a procedure by urology for abnormal cells in the bladder and now havintg some issues now nad has f/u scheduled. Had yeast infections after antibiotics and still having some irritation today but mild. Has h/o Gricel ablation and has regular menses . 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 History LMP: 05/30/2022 (Within Days), Having periods Age at Menarche: Age at First : Age at Menopause: Senior Assistant Manager History Comments: Sexual Activity: Yes; Male Contraception: Vasectomy PAST MEDICAL HISTORY Diagnosis Date NEGATIVE MEDICAL HISTORY PAST SURGICAL HISTORY Procedure Laterality Date HYSTEROSCOPY ENDOMETRIAL ABLATION 11/20/2020 Gricel ablation REMOVAL GALLBLADDER FAMILY HISTORY Problem Relation Age of Onset Diabetes Mother Heart Mother Prostate Cancer Father 54 SOCIAL HISTORY Social History Tobacco Use Smoking status: Never Smokeless tobacco: Never Vaping Use Vaping Use: Never used Substance Use Topics Alcohol use: Not Currently Drug use: Never REVIEW OF SYSTEMS Abdomen: No abdominal pain, nausea, vomiting, diarrhea, or constipation. No bloating, early satiety, indigestion, or increased flatulence. Bladder: No dysuria, gross hematuria, urinary frequency, urinary urgency, or incontinence. Breast: No breast lumps, nipple d/c, overlying skin changes, redness or skin retraction. Allergies and current medication updated:Yes EXAM: BP 118/68 Ht 5' 4.5" (1.64m) Wt 202 lb (91.6kg) LMP 05/30/2022 BMI 34.15 kg/(m2). GENERAL: upset, female in no apparent distress HEENT: Normocephalic, atraumatic, mucus membranes moist, and no lesions NECK: Supple, full range of motion, no adenopathy, and thyroid normal DERMATOLOGY: Normal, without lesions, non-icteric, and non-hirsute BREAST: soft, non-tender, symmetric, no dominant mass, normal nipple-areolar complex, no lymphadenopathy, and no nipple discharge CHEST: Normal inspiratory effort ABDOMEN: soft, non-tender, and no masses PELVIC: external genitalia normal, normal Bartholin's glands, urethra, [place]'s glands, no vulvar lesions, no cervical lesions, good vaginal support, white adherent discharge present, normal appearing perineal body and perianal region, some erythema of vulva and vagina BIMANUAL: uterus normal size, shape and consistency, no adnexal masses, and non-tender RECTOVAGINAL: deferred. NEURO: alert and oriented x3,exam grossly non-focal EXTREMITIES: normal ASSESSMENT/PLAN: 1) Health maintenance: Pap/HPV up to date. Mammogram ordered. 2) Contraception: vasectomy. Contraceptive options reviewed and information provided. 3) STD screening: Declined STD check. 4) Follow up one year or sooner as needed Shannon Hull MD [facility] 06-18-2022 History of Presen t illness Narrative Shannon is a 46 year old who presents for an annual gynecologic exam with complaints, some recurrent UTIS and had to have a a procedure by urology for abnormal cells in the bladder and now havintg some issues now nad has f/u scheduled. Had yeast infections after antibiotics and still having some irritation today but mild. Has h/o Gricel ablation and has regular menses . 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 History LMP: 05/30/2022 (Within Days), Having periods Age at Menarche: Age at First : Age at Menopause: Senior Assistant Manager History Comments: Sexual Activity: Yes; Male Contraception: Vasectomy PAST MEDICAL HISTORY Diagnosis Date NEGATIVE MEDICAL HISTORY PAST SURGICAL HISTORY Procedure Laterality Date HYSTEROSCOPY ENDOMETRIAL ABLATION 11/20/2020 Gricel ablation REMOVAL GALLBLADDER FAMILY HISTORY Problem Relation Age of Onset Diabetes Mother Heart Mother Prostate Cancer Father 54 SOCIAL HISTORY Social History Tobacco Use Smoking status: Never Smokeless tobacco: Never Vaping Use Vaping Use: Never used Substance Use Topics Alcohol use: Not Currently Drug use: Never REVIEW OF SYSTEMS Abdomen: No abdominal pain, nausea, vomiting, diarrhea, or constipation. No bloating, early satiety, indigestion, or increased flatulence. Bladder: No dysuria, gross hematuria, urinary frequency, urinary urgency, or incontinence. Breast: No breast lumps, nipple d/c, overlying skin changes, redness or skin retraction. Allergies and current medication updated:Yes EXAM: BP 118/68 Ht 5' 4.5" (1.64m) Wt 202 lb (91.6kg) LMP 05/30/2022 BMI 34.15 kg/(m^2). GENERAL: upset, female in no apparent distress HEENT: Normocephalic, atraumatic, mucus membranes moist, and no lesions NECK: Supple, full range of motion, no adenopathy, and thyroid normal DERMATOLOGY: Normal, without lesions, non-icteric, and non-hirsute BREAST: soft, non-tender, symmetric, no dominant mass, normal nipple-areolar complex, no lymphadenopathy, and no nipple discharge CHEST: Normal inspiratory effort ABDOMEN: soft, non-tender, and no masses PELVIC: external genitalia normal, normal Bartholin's glands, urethra, [place]'s glands, no vulvar lesions, no cervical lesions, good vaginal support, white adherent discharge present, normal appearing perineal body and perianal region, some erythema of vulva and vagina BIMANUAL: uterus normal size, shape and consistency, no adnexal masses, and non-tender RECTOVAGINAL: deferred. NEURO: alert and oriented x3,exam grossly non-focal EXTREMITIES: normal ASSESSMENT/PLAN: 1) Health maintenance: Pap/HPV up to date. Mammogram ordered. 2) Contraception: vasectomy. Contraceptive options reviewed and information provided. 3) STD screening: Declined STD check. 4) Follow up one year or sooner as needed Shannon Hull MD documented in this encounter [facility] 04-15-2022 Note Message SHANNON TEJADA was (D/C)- last seen: 02/02/22. Patient was seen for initial evaluation on01/11/22. She attended 1 additional treatments thru 02/02/22. Due to her inability to schedule when PT available patient did not return for further treatment sessions. No goals could be re-assessed however patient did voice good understanding to HEP and had been making progress with intervention. Patient will be discharged due to lack of further attendance in accordance with our clinic's attendance policy. Thank you for allowing me to participate in your patient's care. Signatures Electronically signed by : Janet Moser, PT; Apr 15 2022 3:50PM EST (Author) [employer] Evaluation note No assessment inform ation available [facility] Work Phone: Evaluation note Diagnosis Encounter for gynecological examination with abnormal finding- Primary Routine gynecological examination Encounter for screening mammogram for breast cancer Yeast vaginitis Candidiasis of vulva and vagina documented [facility] this [facility] Diagnosis Dizziness- Primary Dizziness and giddiness Change in vision Imbalance Abnormality of gait Recurrent UTI Urinary tract infection, site not specified Memory change Memory loss Healthcare maintenance documented in this encounter [facility] Work Phone: Evaluation note* Diagnosis Dizziness Dizziness and giddiness Change in vision Imbalance Abnormality of gait Recurrent UTI Urinary tract infection, site not specified Memory change Memory loss documented in this encounter [facility] Work Phone: Evaluation note* Diagnosis Dizziness Dizziness and giddiness Change in vision Imbalance Abnormality of gait Recurrent UTI Urinary tract infection, site not specified Memory change Memory loss documented in this encounter [facility] Work Phone: Evaluation note* Diagnosis Acute bronchitis, unspecified organism- Primary documented in this encounter [facility] Work Phone: Evaluation note* Diagnosis Bronchitis- Primary Bronchitis, not specified as acute or chronic Health maintenance examination Unspecified general medical examination documented in this encounter [facility] Work Phone: Evaluation note* Diagnosis Acute non-recurrent maxillary sinusitis- Primary documented in this encounter [facility] Work Phone: Evaluation note* Diagnosis Acute cystitis with hematuria- Primary Dysuria documented in this encounter [facility] Work Phone: Evaluation note* Diagnosis Onset Date Resolution Status Admit Date Frequency of urination acute [facility] 2024 7:52am Other specified disorders of bladder acute January 15 7:52am Urgency of micturition acute [facility] 2024 7:52am UTI (urinary tract infection) acute January 15, 2025 7:52am [facility] Work Phone: History of Present illness Narrative* Patient presents with weakness and incoordination ofcore muscles (specifically her pelvic floor musculature). Patient is experiencing urge and stress incontinence as well as increased frequency due to weakness and poor control of pelvic floor muscles. Patient was incorrectly performing kegel/pelvicfloor exercises prior to today's evaluation. Biofeedback was used for neuro reeducation as patient n ot only had difficulty engaging her pelvic floor but she had difficulty fully relaxing the muscles as well. During treatment today she was able to isolate and contract her pelvic floor and Transverseabdominus muscles with instruction, cues and imagery and then able to better relax them as well with cues and biofeedback . Patient is a good rehab candidate as long as she continues to be compliant with her HEP to build strength, endurance, and coordination of core muscles and also to improve relaxation in order to reduce and eliminate urinary incontinence, pelvic pain and urinary urgency. * Clinical Presentation: Stable and/or uncomplicated characteristics. * Level of Complexity: low * Problem List: coordination, decreased knowledge of HEP, motor function/control/tone, pain, strengthand incontinence, difficulty with relaxation. [facility] Work Phone: History of Present illness Narrative* Patient is reporting compiance with HEP and is better able to isolate and contract and relax her pelvic floor for kegel exercises. She is reporting decreased urinary frequancy and leakage. 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 Patient may also be getting some irritation from exercising her pelvic floor and area around her previously injured coccyx where there is likely scar tissue formed. Patient was in structed in hip/pelvic stretches today and added to HEP. WIll re-check patient's progress with HEP and improvement in her symptoms in 4 weeks. * Response to treatment: improved flexibility, improved motor control and improved knowledge and understanding of condition. * Patient was able to complete today's treatment with ease. [facility] Work Phone: History of Present illness Narrative* Patient presents to [facility] care. * Patient has no chronic illnesses and takes no daily medications. Patient does have rosacea which iswell managed by dermatology with topical formulations. 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 Patient follows closely with urology for this. Patient is also current with Paps and mammograms per CHOIR MEMBER. Patient has never had a colonoscopy. No report of prior screening labs. * Acutely, patient requesting evaluation of a rash. Patient reports approximately 6 days ago widespread, erythematous, tender and pruritic eruptions involving the face, neck, ears, and trunk. Patient attempted topical hydrocortisone and other [id number] medicines without relief. Patient does report working outside and having a stressful event approximately 2 days prior to onset. Change in soaps or body products. [facility] Work Phone: Reason for referral (narrative)* Diagnostic Procedure Only (Routine) - Authorized Specialty Diagnoses / Procedures Referred By Dallas dey Referred To Contact [facility] Diagnoses Encounter for gynecological examination (general) (routine) without abnormal findings Encounter for screening mammogram for breast cancer Procedures BRIAN SCREENING W ANDREE SCREENING DIGITAL BREAST TOMOSYNTHESIS BI SCREENING MAMMOGRAPHY BI 2-VIEW BREAST INC CAD Shannon Hull MD [address] [place] [address] [facility] [address] [place] [address] [place] [address] Referral ID Status Reason Start Date Expiration Date Visits Requested Visits Authorized [id number] Authorized Auto-Generat ed Referral 06/18/2022 07/18/2023 1 1 [facility] for referral (narrative)No reason for referral information [facility] Work Phone: Summary Purpose Family History No Family History Records FoundUnknown Family Member Name Dates Details Family history of diabetes m ellitus: Mother(V18.0, Z83.3) Status:Active Family history of malignant neoplasm of prostate: Father(V16.42, Z80.42) Status:Active Unknown Family Member Name Dates Details Family history of diabetes m ellitus: Mother(V18.0, Z83.3) Status:Active Family history of malignant neoplasm of prostate: Father(V16.42, Z80.42) Status:Active Unknown Family Member Name Dates Details Family history of diabetes m ellitus: Mother(V18.0, Z83.3) Status:Active Family history of malignant neoplasm of prostate: Father(V16.42, Z80.42) Status:Active Unknown Family Member Name Dates Details Family history of diabetes m ellitus: Mother(V18.0, Z83.3) Status:Active Family history of malignant neoplasm of prostate: Father(V16.42, Z80.42) Status:Active Relationship Condition Age at Onset Recorded Date/T consuelo Not Specified Diabetes mellitus Unknown Cardiac disease Unknown Advance Directives No Advanced Directives Records Found Advance Directive Response Recorded Date/ Time Living Will No November 13, 2020 11:14am Power of Agronomist No November 13 11:14am Advance Directive Response Recorded Date/ Time Living Will No November 02, 2021 1 1:06am Power of Agronomist No November 02, 2021 11:06am History of Present Illness * Shannon Hull L - 08/19/2020 2:41 PM EDT Shannon is a 44 year old No obstetric history on file. who presents for an annual gynecologic exam with complaints, menses heavier and crampier last 5-7 years. 2-3 days cramping, radiates to her back. . Doesn't skip menses. 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 Menses: cycles every 28-30 days and 5-6 days of flow. 2 days heavy, bleeds through protection. Usesadvil w some but not complete relief. Heat helps also Contraception: vasectomy HPV vaccine: No Last Pap: normal HPV: negative History of abnormal pap: No Last mammogram: never Sexually active: Yes OB History No obstetric history on file.No past medical history on file.No past surgical history on file.No family history on file.SOCIAL HISTORY Social History Tobacco Use Smoking status: Never Smoker Substance Use Topics Alcohol use: Not on file Drug use: Not on file REVIEW OF SYSTEMS Abdomen: No abdominal pain, nausea, vomiting, diarrhea, or constipation. No bloating, early satiety, indigestion, or increased flatulence. Bladder: No dysuria, gross hematuria, urinary frequency, urinary urgency, or incontinence. Breast: No breast lumps, nipple d/c, overlying skin changes, redness or skin retraction. Allergies and current medication updated:Yes EXAM: BP 122/84 Ht 5' 4.5" (1.64m) Wt 198 lb (89.8kg) LMP 08/06/2020 BMI 33.47 kg/(m^2). GENERAL: pleasant, female in no apparent distress HEENT: Normocephalic, atraumatic, mucus membranes moist and no lesions NECK: Supple, full range of motion, no adenopathy and thyroid normal DERMATOLOGY: Normal, without lesions, non-icteric and non-hirsute BREAST: soft, non-tender, symmetric, no dominant mass, normal nipple-areolar complex, no lymphadenopathy and no nipple discharge CHEST: Normal inspiratory effort ABDOMEN: soft, non-tender and no masses PELVIC: external genitalia normal, normal Bartholin's glands, urethra, [place]'s glands, no vulvar lesions, no cervical lesions, good vaginal support, physiologic discharge present, normal appearing perineal body and perianal region BIMANUAL: uterus normal size, shape and consistency, no adnexal masses and non-tender RECTOVAGINAL: deferred. NEURO: alert and oriented x3,exam grossly non-focal EXTREMITIES: normal ASSESSMENT/PLAN: 1) Health maintenance: Pap done with HPV. Mammogram ordered. 2) Contraception: vasectomy. Contraceptive options reviewed and information provided. 3) STD screening: Declined STD check. 4) Follow up one year or sooner as needed menorrhagia- check labs and EMB and d/w her options. Shannon Hull MD documented in this encounter Assessments Diagnosis Menorrhagia with regular cycle- Primary Excessive or frequent menstruation Screening for cervical cancer Screening for malignant neoplasm of the cervix Encounter for screening for human papillomavirus (HPV) Special screening examination for human papillomavirus (HPV) Encounter for screening mammogram for breast cancer Encounter for gynecological examination with abnormal finding Routine gynecological examination Chief Complaint and Reason for Visit Chief Complaint uti Chief Complaint uti CYSTO, BLADDER BX, FULGURATION Chief Complaint Admit Date uti sx January 15, 2025 7: 52am Reason for Visit Admit Date Frequency of urination January 15, 2025 7:52am Other specified disorders of bladder Aug ust 2024 7:52am Urgency of micturition January 15, 2025 7:52am UTI (urinary tract infection) December 7:52am Chief Complaint * Patient here today to get established as a new patient and last seen by PCP 2- 3 years ago. * Patient having skin irritation scalp, ears, face and left hip x 6 days. Patient has used OTC Tecnu cream and Hydrocortisone. * Colonoscopy never done, PAP last year and mammogram 1.5 with ultrasound 6 mos ago. 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 * Solu-Medrol 125 mg/2mL given right gluteal without incident , patient tolerated well without complaints. * [facility] [id number] * EXP 06/2022 * LOT [id number] Reason for Referral Specialty Diagnoses / Procedures Referred By Dallas dey Referred To Contact Radiology Diagnoses Dizziness Change in vision Imbalance Recurrent UTI Memory change Procedures MR brain w and wo IV contrast Jai Fuentes PA-C [address] [facility] [place] [id number] Referral ID Status Reason Start Date Expiration Date Visits Requested Visits Authorized [id number] Pending Review Perform Procedure 03/07/2023 09/03/2023 1 1 Referral ID Status Reason Start Date Expiration Date Visits Requested Visits Authorized [id number] Authorized Perform Procedure 03/07/2023 09/03/2023 1 1 Additional Source Comments INFORMATION SOURCE (unrecogn ized section and content) DATE CREATED AUTHOR 11/25/2017 [facility] DATE CREATED AUTHOR AUTHOR'S ORGANIZ ATION 03/07/2018 [facility] DATE CREATED AUTHOR AUTHOR'S ORGANIZ ATION 02/04/2022 [facility] DATE CREATED AUTHOR AUTHOR'S ORGANIZ ATION 03/25/2022 [facility] DATE CREATED AUTHOR AUTHOR'S ORGANIZ ATION 04/16/2022 [facility] DATE CREATED AUTHOR AUTHOR'S ORGANIZ ATION 08/13/2022 [facility] DATE CREATED AUTHOR AUTHOR'S ORGANIZ ATION 04/08/2024 [facility] DATE CREATED AUTHOR AUTHOR'S ORGANIZ ATION 04/13/2024 [facility] DATE CREATED AUTHOR AUTHOR'S ORGANIZ ATION 12/12/2024 [facility] DATE CREATED AUTHOR AUTHOR'S ORGANIZ ATION 12/13/2024 [facility] DATE CREATED AUTHOR AUTHOR'S ORGANIZ ATION 04/10/2025 [facility] Source Comments (unrecognize d section and content) In the event this informatio n is protected by the Federal Confidentiality of Alcohol and Drug Abuse Patient Records regulations: The Federal rules restrict any use of the information to criminally investigate or prosecute any alcohol or drug abuse patient.[facility] the event this information is protected by the Federal Confidentiality of Alcohol and Drug Abuse Patient Records regulations: The Federal rules restrict any use of the information to criminally investigate or prosecute any alcohol or drug abuse patient.[facility] the event this information is protected by the Federal Confidentiality of Alcohol and Drug Abuse Patient Records regulations: The Federal rules restrict any use of the information to criminally investigate or prosecute any alcohol or drug abuse patient.[facility] the event this information is protected by the Federal Confidentiality of Alcohol and Drug Abuse Patient Records regulations: The Federal rules restrict any use of the information to criminally investigate or prosecute any alcohol or drug abuse patient.[facility] Reason for Visit (unrecogniz ed section and content) Reason Comments Yearly Exam Reason Comments Yearly Exam Reason Comments Follow-up FU 1 year, patient m rossy having symptoms of memory loss, left shoulder and right foot nerve sensation, dizzy spells and left eye slowing opening when opening eyes x 1 year intermittently. Patient states has an aunt dx with MS. Specialty Diagnoses / Procedures Referred By Dallas dey Referred To Contact Radiology Diagnoses Dizziness Change in vision Imbalance Recurrent UTI Memory change Procedures MR brain w and wo IV contrast Jai Fuentes PA-C [address] [facility] [address] Referral ID Status Reason Start Date Expiration Date Visits Requested Visits Authorized [id number] Authorized Perform Procedure 03/07/2023 09/03/2023 1 1 Reason Comments URI Cough, headache,sinu s congestion,sob X 5 days Reason Comments transferring care Est care today Reason Comments URI Sore throat X 1day, sinus congestion and drainage X 1 week Reason Comments burning with urination Vaginal irritatio n, pelvic pain x 1 week <item><item><item><item> Privacy Markings (unrecogniz ed section and content) Section Author: Naheed Beyer PROHIBITION ON REDISCLOSURE OF CONFIDENTIAL INFORMATION This notice accompanies a disclosure of information concerning a client made to you with the consent of such client. Section Author: Naheed Beyer PROHIBITION ON REDISCLOSURE OF CONFIDENTIAL INFORMATION This notice accompanies a disclosure of information concerning a client made to you with the consent of such client. Section Author: Naheed Beyer PROHIBITION ON REDISCLOSURE OF CONFIDENTIAL INFORMATION This notice accompanies a disclosure of information concerning a client made to you with the consent of such client. Section Author: Naheed Beyer PROHIBITION ON REDISCLOSURE OF CONFIDENTIAL INFORMATION This notice accompanies a disclosure of information concerning a client made to you with the consent of such client. Goals (unrecognized section and content) Goals may be documented in a n alternate sectionGoals may be documented in an alternate section Care Teams (unrecognized sec tion and content) Feed Mill Supervisor Relationship Specialty Start Date End Date Jai Fuentes PA-C [address] [facility] [place] [address] PCP - General 03/01/22 Jai Fuentes PA-C [address] [facility] [place] [address] PCP - MMO ACO PCP 03/30/22 Feed Mill Supervisor Relationship Specialty Start Date End Date Jai Fuentes PA-C [address] [facility] [place] [address] PCP - General 03/01/22 Jai Fuentes PA-C [address] [facility] [place] [address] PCP - MMO ACO PCP 03/30/22 Feed Mill Supervisor Relationship Specialty Start Date End Date Jai Fuentes PA-C [address] [facility] [place] [address] PCP - General 03/01/22 Jai Fuentes PA-C [address] [facility] [place] [address] PCP - MMO ACO PCP 03/30/22 Feed Mill Supervisor Relationship Specialty Start Date End Date Jai Fuentes PA-C [address] [facility] [place] [address] PCP - General 03/01/22 Jai Fuentes PA-C [address] [facility] [address] [place] [address] PCP - MMO ACO PCP 03/30/22 Feed Mill Supervisor Relationship Specialty Start Date End Date Jai Fuentes PA-C [address] [facility] [place] [address] PCP - MMO ACO PCP 03/30/22 Nila Og, MILITARY EQUIPMENT SPECIALIST-TIRE MECHANIC [address] [facility] [place] [address] PCP - General Family Medicine 04/06/24 Feed Mill Supervisor Relationship Specialty Start Date End Date Nila Og, MILITARY EQUIPMENT SPECIALIST-TIRE MECHANIC [address] [facility] [place] [address] PCP - General Family Medicine 04/06/24 Nila Og MILITARY EQUIPMENT SPECIALIST-TIRE MECHANIC [address] [facility] [place] [address] PCP - MMO ACO PCP 04/29/24 Feed Mill Supervisor Relationship Specialty Start Date End Date Nila Og, MILITARY EQUIPMENT SPECIALIST-TIRE MECHANIC [address] [facility] [address] [place] [address] PCP - MMO ACO PCP 04/29/24 Nila Og, MILITARY EQUIPMENT SPECIALIST-TIRE MECHANIC [address] [facility] [place] [address] (work) PCP - General Family Medicine 12/08/24 Team Status: Active Member Role/Relationship Status Dates No Primary Care Physician Primary Care Provider Active Team Status: Inactive Member Role/Relationship Status Dates No Primary Care Physician Primary Care Provider Active Start: November 27, 2024 Dr. Gwendolyn Snow MD Attending Provider Active Start: November 27, 2024 Team Status: Inactive Member Role/Relationship Status Dates No Primary Care Physician Primary Care Provider Active Start: January 15, 2025 End: January 15, 2025 No Primary Care Physician Referring Provider Active Start: January 15, 2025 End: January 15, 2025 Dr. Gwendolyn Snow MD Attending Provider Active Start: January 15, 2025 End: January 15, 2025 FOR RECORDS PERTAINING TO PATIENTS WHO ARE OR HAVE BEEN ENROLLED IN A CHEMICAL DEPENDENCY/SUBSTANCEABUSE PROGRAM, SOME INFORMATION MAY BE OMITTED. This clinical summary was aggregated from multiple sources. Caution should be exercised in using it in the provision of clinical care. This summary normalizes information from multiple sources, and as a consequence, information in this document may materially change the coding, format and clinical context of patient data. In addition, data may be omitted in some cases. CLINICAL DECISIONS SHOULD BE BASED ON THE PRIMARY CLINICAL RECORDS. [employer] provides no warranty or guarantee of the accuracy or completeness of information in this document.
== END | disposition home or self-care (01) ==
LOC: OPBI 10:11
PROVIDERS: Referring Provider Nurse Practitioner Family; Visit Provider Nurse Practitioner Family
DX: Z12.31 Encounter for screening mammogram for malignant neoplasm of breast (principal)
CPT/HCPCS: 77063; 77067

== ENCOUNTER 2025-05-09 08:11 | Day surgery (SDC) | payer OTHER, SELFPAY ==
[2025-05-09] VITALS (9 sets, daily range): BP systolic 101–152; BP diastolic 57–88; PULSE 76–89; RESP 14–18; TEMP 36.1–36.6; O2SAT 96–99; BMI 36.3
[2025-05-09 08:35] LABS: Internal QC Validated? YES +Cl - CLEAR BKGD; Pregnancy, Urine Negative Negative
--- NOTE | 2025-05-09 08:39 | PCM.HP.BLA ---
History and Physical Date of Admission: 05/09/25 Date of Service: 04/23/25 MR#: [id number] Acct: [id number] Name: SHANNON LEYVA Rep #: [id number] : 1975 Provider: Dr. Gwendolyn Snow MD Age/Sex: 49/F Location[place] [facility] [place] Status: Signed Intake Vital Signs 03/29/2515:40 04/23/2509:06 Height 5 ft 4 in 5 ft 4 in Weight: 207 lb 3 oz 207 lb 3 oz BMI 35.5 35.5 BP 142/73 H 130/95 H Pulse 66 Intake Visit Reasons: UTI f/u Chief Complaint: UTI follow up Rehab Aide Required: No Accompanied by: Self Is patient in pain?: No Allergies amoxicillin Allergy (Verified 04/23/25 09:15) Itching nitrofurantoin (From Macrobid) Allergy (Verified 04/23/25 09:15) Hives Medications ?Medication ?Instructions ?Recorded ?Confirmed ?Type Probiotic 1 tab DAILY 11/20/20 04/23/25 History clascoterone 1 % topical cream 1 applic topical BID 11/02/21 04/23/25 History (Winlevi) ivermectin 1 % topical cream 1 applic topical QDAY 03/19/24 04/23/25 History (Soolantra) ascorbic acid (vitamin C) 500 mg mg PO 01/15/25 04/23/25 History capsule biotin 10,000 mcg capsule mcg PO 01/15/25 04/23/25 History cholecalciferol (vitamin D3) 25 25 mcg PO QDAY 01/15/25 04/23/25 History mcg (1,000 unit) capsule d-mannose 500 mg capsule mg PO 01/15/25 04/23/25 History estradiol 0.01% (0.1 mg/gram) 1 g vaginal 3XW #42.5 grams 01/15/25 04/23/25 Rx vaginal cream sertraline 25 mg tablet (Zoloft) 25 mg PO QDAY #30 tabs 04/10/25 04/23/25 Rx fluconazole 150 mg tablet 150 mg PO Q3D 2 doses #2 tabs 04/17/25 04/23/25 Rx cephalexin 250 mg capsule 250 mg PO QHS #90 caps 04/23/25 04/23/25 Rx sulfamethoxazole 800 1 tab PO BID #14 tabs 04/23/25 04/23/25 Rx mg-trimethoprim 160 mg tablet (Bactrim DS) Have you fallen in the past year?: No Nurse's Note: sx lingers after uti PFSH Medical History Urgency of micturition Frequency of urination Other specified disorders of bladder Lesion of bladder History of toe fracture Restless legs Back pain Heartburn Non-smoker Surgical History History of hysteroscopy Hx of wisdom tooth extraction Hx laparoscopic cholecystectomy Family History Other Diabetes Heart disease Social History Smoking Status: Never smoker alcohol intake: never substance use type: does not use Questionnaire Social Determinants of Health* SDOH Screening Social determinants of health last assessed in clinic: 04/23/25 Will the patient participate in the screening?: Yes Do you worry about having a steady place to live?: No In the past 12 months, have you had to go without electric, gas, oil or water in your home?: No Have you or anyone in your house had to go without enough food to eat?: No Has lack of reliable transportaion kept you from medical appts or from doing things needed for daily living?: No Has anyone in your support network made you feel unsafe for any reason?: No Does the patient want assistance with any of the above?: No HPI HPI Urology Chief Complaint: UTI follow up Details: SHANNON LEYVA, is a 49 F. She is here for follow up after being treated for an Ecoli urinary tract infection. She tried the methenamine 3 different times, each with issues including rash, GI upset etc. She stopped it. She is taking the following prevention: cephalexin after intercourse, D-mannose, estrogen cream, vitamin C, probiotics. 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 She is continuing to have symptoms of the infection despite appropriate management. 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 ROS Const Constitutional: No chills, fatigue, fever(s), headache(s), night sweats, weakness, weight change, abnormal sleep pattern or change in appetite Eyes Eyes: No change in vision ENT ENT: No headache(s) or dry mouth Resp Respiratory: No cough, chest congestion, shortness of breath or wheezing Cardio Cardiology: Positive for other (No chest pain.); No shortness of breath, irregular heart rhythm or lightheadedness Gastro GI: Positive for other (No nausea.); No abdominal pain, change in bowel habits, constipation, diarrhea or vomiting Musc Musculoskeletal: No abnormal gait Skin Skin: No yellowing of the eye, lesions, itchy eyes, rash or skin ulcer Neuro Neurology: No abnormal gait, confusion, dizziness, weakness, headache(s) or memory loss Psych Psychiatric: No abnormal sleep pattern, No change in appetite, No confusion and No memory loss Endo Endocrine: No fatigue, increased thirst/drinking or weight change Aller/Imm Allergy/Immunologic: No itchy eyes or wheezing Cirilo/Lymp Hematologic/Lymphatic: No easy bleeding, easy bruising or enlarged lymph nodes Exam Const General: cooperative, healthy appearing, comfortable and no acute distress [facility] Head: normocephalic and atraumatic Ears: hearing grossly normal bilaterally and external ears normal Nose: external nose normal Eyes General: appearance normal, both eyes and all related structures Neck Neck: normal visual inspection and trachea midline Chest Chest palpation & inspection: normal inspection of the chest Resp Effort & Inspection: normal respiratory effort, able to speak in complete sentences and symmetric chest movement Cardio Rate: regular rate GI Inspection: normal to inspection Palpation: soft and nontender General: bladder abnormal (suprapubic tenderness) Distended: No and No CVA tenderness Skin General: no rashes or lesions noted Neuro General: patient alert, patient awake, patient oriented x3 and CN's II-XI intact bilaterally Extrem General: normal to inspection Psych Appearance: grossly normal and well kempt Mental Status: mental status grossly normal Results POC Urinalysis w/Micro Office Urine Color ? Last Edit by Cullen Pinzon on 04/23/25 09:21 Office Urine Clarity ? Last Edit by Cullen Pinzon on 04/23/25 09:21 Office Urine Glucose Negative Last Edit by Cullen Pinzon on 04/23/25 09:21 Office Urine Ketones Negative Last Edit by Cullen Pinzon on 04/23/25 09:21 Office Urine Bilirubin Negative Last Edit by Cullen Pinzon on 04/23/25 09:21 Office Urine Urobilinogen 0.2 mg/dL Last Edit by Cullen Teixeiraten on 04/23/25 09:21 Off Ur Spec [place] ? Last Edit by Cullen Teixeiraten on 04/23/25 09:21 Office Urine pH 6 Last Edit by Cullen Teixeiraten on 04/23/25 09:21 Office Urine Protein Negative Last Edit by Cullen Teixeiraten on 04/23/25 09:21 Office Urine Blood Trace Last Edit by Cullen Teixeiraten on 04/23/25 09:21 Office Urine Blood Hemolyzed Negative Last Edit by Cullen Teixeiraten on 04/23/25 09:21 Office Urine Nitrate Negative Last Edit by Cullen Teixeiraten on 04/23/25 09:21 Off Ur Leukocytes Negatve Last Edit by Cullen Teixeiraten on 04/23/25 09:21 Off Ur WBC Microscopic ? Last Edit by Cullen Teixeiraten on 04/23/25 09:21 Off Ur RBC Microscopic ? Last Edit by Cullen Pinzon on 04/23/25 09:21 Off Ur Bacteria Microscopic ? Last Edit by Cullen Teixeiraten on 04/23/25 09:21 Coding Level of Care Code Off vis,est,level 4 Diagnoses UTI (urinary tract infection) N39.0 Other specified disorders of bladder N32.89 Frequency of urination R35.0 Urgency of micturition R39.15 Additional Codes Intake - Is patient in pain?: No (1126F) SDOH Screening - Does the patient want assistance with any of the above?: No (G0136) Assessment and Plan Assessment and Plan (1) UTI (urinary tract infection): Status: Acute (2) Other specified disorders of bladder: Status: Acute Comment: squamous metaplasia (3) Frequency of urination: Status: Acute (4) Urgency of micturition: Status: Acute Orders: Orders POC UA Automated w/Microscopy Today N39.0 - Urinary tract infection, site not specified Medications: New cephalexin 250 mg PO QHS 90 caps 2RF sulfamethoxazole-trimethoprim 800-160 mg (Bactrim DS) UTI start therapy 1 TAB PO BID 14 tabs 0RF Discontinued methenamine hippurate Discontinued Reason: Pt not known to practice 1 g PO BID 180 tabs 3RF Plan continue estrogen cream, D-mannose, vitamin C, probiotics resume nightly cephalexin for at least 6 months cystoscopy under anesthesia with possible biopsy and fulguration Patient Instructions: The procedure, recovery and expectations were explained. The risks, benefits and alternatives were discussed, including but not limited to, the risks of anesthesia, bleeding, infection, injury, pain and the need for further intervention. A joint decision was made at this time to proceed with the scheduled surgery/procedure as indicated on the consent form Clinical Quality Measures Falls Risk Screening/Assistive Devices Have you fallen in the past year?: No 04/23/25 1023 <Electronically signed by Gwendolyn Snow MD> Date Gwendolyn Snow MD
[2025-05-09] MEDS: Lactated Ringers 1,000 ML 15 ML IV (08:57)
--- NOTE | 2025-05-09 09:02 | EKG12_ITS ---
Test Reason : PRE-OP Blood Pressure : */* mmHG Vent. Rate : 73 BPM Atrial Rate : 73 BPM P-R Int : 170 ms QRS Dur : 84 ms QT Int : 394 ms P-R-T Axes : 35 21 38 degrees QTcB Int : 434 ms Normal sinus rhythm Normal ECG Confirmed by COREY DELATORRE, JOELLEN ([id number]), continuity editor MAGDIEL GONSALES ([id number]) on 05/14/2025 1:59:57 PM Referred By: Gwendolyn Snow Confirmed By: JOELLEN NICOLE MD
[2025-05-09 09:07] LABS: Hematocrit 44.9 % (37-47); Hemoglobin 15.2 g/dL (12.0-15.0); Mean Corp Hgb Conc 33.9 g/dL (32-36); Mean Corpuscular Volume 91.4 fL (81-99); Mean Platelet Vol. 10.6 fl (6.2-12.0); Platelet Count 225 K/mm3 (150-450); RBC Distribution Width CV 12.0 % (11.6-14.6); RBC Distribution Width SD 40.2 fl (35.1-43.9); Red Blood Count 4.91 M/mm3 (4.2-5.4); White Blood Count 8.9 K/mm3 (4.4-11.0)
[2025-05-09 09:27] LABS: Anion Gap 9 (5-15); BUN 14 mg/dL (4-19); BUN/Creat Ratio 22.1 RATIO (10-20); Calcium,Total 9.1 mg/dL (7.6-11.0); Carbon Dioxide 24.7 mmol/L (21.0-32.0); Chloride 103 mmol/L (98-108); Estimated Creatinine Clearance 118.24 ml/min (50-250); Glucose 117 mg/dL (70-99); Potassium 4.4 mmol/L (3.3-5.1)
--- NOTE | 2025-05-09 09:37 | PCM.PRE.AN2 ---
ASA Classification* ASA Classification ASA Classification: 2 Assessment & Plan Anesthesia* Anesthesia Assessment Anesthesia Assessment: Discussed sedation and/or anesthesia options, risks, benefits, and alternatives with patient/parents/legal guardian/POA. Questions invited. The patient/parents/legal guardian/POA seems to understand and agrees to proceed with anesthesia plan. Reviewed the physical assessment, medical history, allergy history and patient home medications list prior to surgery/procedure/anesthetic and documented any changes. Performed airway and anesthesia risk assessments. Anesthesia Type Anesthesia Type: MAC History Source History Obtained from:: Patient and Chart Anesthesia Focused Assessment* Temperature: 96.9 F Pulse Rate: 78 Blood Pressure: 152/88 Respiratory Rate: 18 Pulse Ox: 99 Oxygen Delivery Method: Room Air Airway Assessment Mouth opens: >3 cm Mallampati Score: I Teeth Condition: Intact Neck Range of motion (ROM): Full ROM Labs Anesthesia Preop lab: CBC WBC, (4.4-11.0) 8.9 K/mm3 Today, 08:30 RBC, (4.2-5.4) 4.91 M/mm3 Today, 08:30 Hgb, (12.0-15.0) 15.2 g/dL H Today, 08:30 Hct, (37-47) 44.9 % Today, 08:30 Plt Count, (150-450) 225 K/mm3 Today, 08:30 CHEMISTRY Potassium, (3.3-5.1) 4.4 mmol/L Today, 08:30 Sodium, (133-145) 137 mmol/L Today, 08:30 BUN, (4-19) 14 mg/dL Today, 08:30 Creatinine, (0.70-1.20) 0.64 mg/dL L Today, 08:30 Glucose, (70-99) 117 mg/dL H Today, 08:30 TSH, (0.358-3.740) 2.250 uIU/mL 03/19/24, 12:03 COAG Urine Test Negative Negative Today, 08:25 Pre-Assessment Diagnosis/Proposed Procedure Planned Operative Procedure(s): CYSTO, POSSIBLE BLADDER BIOPSY, AND FULGURATION Anesthesia History Anesthesia History - information security consultant: Anesthesia History - information security consultant Hx Hospitalization No 05/06/25 12:14 Any Problems With Anesthesia No 05/06/25 12:14 Cholinesterase deficiency No 05/06/25 12:14 You/Your Family Experience No 05/06/25 12:14 fever (hyperthermia) with Relationship Recent Exposure to Contagious No 05/09/25 08:36 Disease Does patient have nerve No 05/06/25 12:14 stimulator Patient instructed to have device shut off --Does patient have Pacemaker No 05/09/25 08:36 or ICD? When Was Last Pacemaker Check QUESTION #4 FULL TEXT: You/Your Family Experience fever (hyperthermia) with Anesthesia Last Oral Intake Last Oral intake: Last Oral Intake NPO since 07:30 05/09/25 08:36 Meds taken in AM with sips of No 05/09/25 08:36 water? Meds patient instructed to take am of surgery Any additional information?: Yes NPO since: 07:30 (Patient had water at 7:30 AM.) Meds taken in AM with sips of water?: No PONV PONV - information security consultant: PONV - information security consultant Female Yes 05/06/25 12:14 HX of Motion Sickness Yes 05/06/25 12:14 HX of N/V After Surgery No 05/06/25 12:14 Non-Smoker Yes 05/06/25 12:14 Duration of Surgery greater Yes 05/06/25 12:14 than 60 minutes Number of Risk Factors 4 05/06/25 12:14 PONV Score Severe Risk 05/06/25 12:14 Height & Weight Height & Weight: Anesthesia: Height & Weight Height 5 ft 4 in 05/09/25 08:36 Weight: 96 kg 05/09/25 08:36 Body Mass Index (BMI) 36.3 05/09/25 08:36 Respiratory Assessment Respiratory Assessment - information security consultant: Respiratory Tract Infection Hx - information security consultant Hx Respiratory Tract Infection No 05/06/25 12:14 Any additional information?: Yes Hx Respiratory Tract Infection: Yes (Patient has slight sinus drainage starting yesterday.) STOP Sleep Apnea STOP Sleep Apnea - information security consultant: STOP Sleep Apnea - information security consultant Hx Hypertension No 05/06/25 12:14 Hx Sleep Apnea No 05/06/25 12:14 CPAP BIPAP Do you snore loudly (louder No 05/06/25 12:14 than talking or can be heard Do you often feel tired/ No 05/06/25 12:14 fatigued/ sleepy during daytime? Has anyone observed you stop No 05/06/25 12:14 breathing during sleep? STOP Results Negative 05/06/25 12:14 QUESTION #5 FULL TEXT : Do you snore loudly (louder than talking or can be heard through closed doors)? 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 Specify any problems Hx of Preganancy in last 3 No 05/06/25 12:14 Months Nurse Filling Out Transfusion [place] 05/06/25 12:14 & Questions: Date: 05/06/25 05/06/25 12:14 Time: 12:19 05/06/25 12:14 Patient unable to answer at this time (ie. confused, unrespo /Reproduction History /Reproductive History - information security consultant: /Reproductive Hx- information security consultant Hx Now No 05/06/25 12:14 Gestational Age (in weeks): EDC: Hx Hx Para Hx Section SAB No 05/06/25 12:14 Does the father of the baby or his family experience fever w Father of the baby Malignant Hypertension history comment Active Medications Active Medications: Current Medications Generic Name Dose Route Start Last Admin Trade Name Freq PRN Reason Stop Dose Admin Lactated Ringer's 1,000 mls @ 15 mls/hr 05/09/25 09:00 05/09/25 08:57 IV 15 mls/hr .Q48H ZAKI Administration PFSH Medical History Wears glasses Depression Bladder disease Fatty liver Urgency of micturition Frequency of urination Other specified disorders of bladder Lesion of bladder History of toe fracture Restless legs Back pain Heartburn Non-smoker Home Medications ?Medication ?Instructions ?Recorded ?Last Taken ?Type Probiotic 1 tab PO DAILY 11/20/20 05/08/25 History clascoterone 1 % topical cream 1 applic topical BID 11/02/21 05/09/25 History (Winlevi) ivermectin 1 % topical cream 1 applic topical QDAY 03/19/24 05/09/25 History (Soolantra) ascorbic acid (vitamin C) 500 mg 500 mg PO DAILY 01/15/25 05/08/25 History capsule biotin 10,000 mcg capsule 10,000 mcg PO DAILY 01/15/25 05/08/25 History cholecalciferol (vitamin D3) 25 25 mcg PO QDAY 01/15/25 05/08/25 History mcg (1,000 unit) capsule d-mannose 500 mg capsule 1,000 mg PO DAILY 01/15/25 05/08/25 History estradiol 0.01% (0.1 mg/gram) 1 g vaginal 3XW #42.5 grams 01/15/25 04/29/25 Rx vaginal cream sertraline 25 mg tablet (Zoloft) 25 mg PO QDAY #30 tabs 04/10/25 04/29/25 Rx cephalexin 250 mg capsule 250 mg PO QHS #90 caps 04/23/25 05/08/25 Rx sulfamethoxazole 800 1 tab PO BID #14 tabs 04/23/25 04/09/25 Rx mg-trimethoprim 160 mg tablet (Bactrim DS) Allergy/AdvReac Type Severity Reaction Status Date / Time amoxicillin Allergy Itching Verified 05/09/25 08:32 nitrofurantoin (From Allergy Hives Verified 05/09/25 08:32 Macrobid) Family History Other Diabetes Heart disease Surgical History History of hysteroscopy Hx of wisdom tooth extraction Hx laparoscopic cholecystectomy Social History Smoking Status: Never smoker alcohol intake: never substance use type: does not use Review of Systems (Anesthesia) ROS Narrative System reviewed and no additional complaints, except as documented.
[2025-05-09] MEDS: Midazolam 2 MG/2 ML Syringe IV (10:13)
[2025-05-09] MEDS: Lactated Ringers 500 ML IV (10:13)
[2025-05-09] MEDS: Lidocaine 1% (5 ml sdv) 5 ML Vial IV (10:13)
[2025-05-09] MEDS: Cefazolin 1 GM/5 ML Vial 2 GM IV (10:13)
[2025-05-09] MEDS: fentaNYL 100 MCG/2 ML Ampul 50 MCG IV (10:16)
--- NOTE | 2025-05-09 10:21 | PCM.POST.ANE ---
Anesthesia: Postop Eval I Current Vital Signs Temperature: 98 F Pulse Rate: 89 Blood Pressure: 101/57 Respiratory Rate: 14 Pulse Ox: 97 Oxygen Delivery Method: Room Air Assessment Airway patent: Yes Spontaneous unlabored respirations: Yes Mental status: Awake and Calm nausea: No Vomiting: No Anesthesia Complication: No Fluid Hydration Crystalloid volume administer (ml): 500 Total IV fluid infused: 500 Progress Note Anesthesia document: Postop Eval 1 completed: Yes
--- NOTE | 2025-05-09 10:36 | DCINST_ITS ---
Discharge Instructions Diet Discharge Diet: No restrictions Activity Discharge Activity: Return to Normal Activity May resume sexual activity in: No Restrictions Dressing / Incision Call your doctor if you observe: Fever of 101 or Higher, Inability to urinate and Inability to have a bowel movement Follow Up Care Please Follow Up With: Gwendolyn Snow MD Test Results: Test results from this visit will be discussed in further detail at your follow- up appointment, if applicable. Discharge Plan Admission Attending Provider: Gwendolyn Snow Primary Care Provider: Care Physician,Michelle Primary Instructions Print Language: Vincentian Discharge Orders/Prescriptions Prescriptions: Continued ivermectin [Soolantra] 1 % cream 1 applic topical QDAY d-mannose 500 mg capsule 1,000 mg PO DAILY ascorbic acid (vitamin C) 500 mg capsule 500 mg PO DAILY biotin 10,000 mcg capsule 10,000 mcg PO DAILY cholecalciferol (vitamin D3) 25 mcg (1,000 unit) capsule 25 mcg PO QDAY estradiol 0.01 % (0.1 mg/gram) cream 1 g vaginal 3XW Qty: 42.5 3RF sertraline [Zoloft] 25 mg tablet 25 mg PO QDAY Qty: 30 1RF Rx Instructions: Take once a day 2 weeks prior to approx menses start. cephalexin 250 mg capsule 250 mg PO QHS Qty: 90 2RF sulfamethoxazole-trimethoprim [Bactrim DS] 800-160 mg tablet 1 tab PO BID Qty: 14 0RF Rx Instructions: UTI start therapy Probiotic 1 tab PO DAILY Winlevi 1 % Cream 1 applic TOPICAL BID Referrals / Follow Up: Care Physician,No Primary [Primary Care Provider, Medical] Disposition Disposition (needs filled in before D/C Order can be placed): Home, Self Care
--- NOTE | 2025-05-09 10:37 | OP.PCM_ITS ---
Operative Report (Standard) Operative Information Date of Procedure: 05/09/25 Pre-Operative Diagnosis: History of squamous metaplasia, recurrent urinary tract infections Post-Operative Diagnosis: Same Surgery/Procedure Performed: Cystoscopy vacuum technician: No Type of Anesthesia: MAC RN Documented Start/Stop Times: Operation Date: 05/09/25 09:30 Case Time Into Pre-Op 05/09/25 08:27 Out of Pre-Op 05/09/25 10:00 Anesthesia Start 05/09/25 10:04 Into Room 05/09/25 10:04 Procedure Start 05/09/25 10:16 Procedure End 05/09/25 10:20 Anesthesia End 05/09/25 10:26 Out of Room 05/09/25 10:26 Into Recovery 05/09/25 10:27 Procedure Start Time: 10:16 Procedure Stop Time: 10:20 Select all DRAINS/GRAFTS/IMPLANTS that apply: None Estimated Blood Loss: <5cc Specimen collected: No Description of surgery: The patient is a 49-year-old female with a history of squamous metaplasia which has been well-controlled until recently. She has had a string of urinary tract infections. She now presents for reevaluation of her bladder mucosa. Informed consent has been obtained. She was taken to the operating room and placed on the operating room table. Anesthesia monitored the head, neck, airway, IV access and vital signs throughout the case. Once anesthesia was appropriately administered, she was placed into dorsolithotomy position was prepped and draped in usual sterile fashion. The cystoscope was inserted through the urethra under direct visualization into the urinary bladder. The bladder mucosa was visualized in its entirety finding no evidence of mass, erythema, ulceration or foreign body. There was no evidence of squamous metaplasia identified. The bladder was then emptied and the cystoscope was removed. She was awakened and taken the recovery room in good condition. Surgical Findings: No squamous metaplasia, mass or ulceration identified Complications Complications: No Admit VTE Documentation VTE Present on Admission: Yes VTE Mechan Device Prophylaxis: SCD's VTE Pharm Prophylaxis ordered?: No Reason prophylaxis not ordered: Treatment Not Indicated
--- NOTE | 2025-05-09 12:51 | POSTOPAN2_ITS ---
Anesthesia Postop Eval I Sum Postop Eval Completion status Anesthesia document: Postop Eval 1 completed: Yes Anesthesia Postop Eval I Summary Anesthesia Postop Eval I Summary: Anesthesia Postop Eval I: Assessment Summary Airway patent Yes 05/09/25 10:22 CUSTOMER SUPPORT REPRESENTATIVE.MDOT Spontaneous unlabored Yes 05/09/25 10:22 CUSTOMER SUPPORT REPRESENTATIVE.MDOT respirations Mental status Awake,Calm 05/09/25 10:22 CUSTOMER SUPPORT REPRESENTATIVE.MDOT nausea No 05/09/25 10:22 CUSTOMER SUPPORT REPRESENTATIVE.MDOT Vomiting No 05/09/25 10:22 CUSTOMER SUPPORT REPRESENTATIVE.MDOT Anesthesia Postop Eval I: Fluid Summary Crystalloid volume administer 500 05/09/25 10:22 CUSTOMER SUPPORT REPRESENTATIVE.MDOT (ml) Colloids volume administered ( ml) Blood Product volume administered (ml) Total IV fluid infused 500 05/09/25 10:22 CUSTOMER SUPPORT REPRESENTATIVE.MDOT Anesthesia Postop Eval I: Summary Notes Anesthesia Complication No 05/09/25 10:22 CUSTOMER SUPPORT REPRESENTATIVE.MDOT Anesthesia Complication Comment: Post-operative progress note Anesthesia: Postop Eval II Evaluation Mental status: Awake Pain Level: 2 nausea: No Vomiting: No
--- NOTE | 2025-05-09 12:51 | PCM.POSTANE2 ---
Anesthesia Postop Eval I Sum Postop Eval Completion status Anesthesia document: Postop Eval 1 completed: Yes Anesthesia Postop Eval I Summary Anesthesia Postop Eval I Summary: Anesthesia Postop Eval I: Assessment Summary Airway patent Yes 05/09/25 10:22 TILLER MAN.MDOT Spontaneous unlabored Yes 05/09/25 10:22 TILLER MAN.MDOT respirations Mental status Awake,Calm 05/09/25 10:22 TILLER MAN.MDOT nausea No 05/09/25 10:22 TILLER MAN.MDOT Vomiting No 05/09/25 10:22 TILLER MAN.MDOT Anesthesia Postop Eval I: Fluid Summary Crystalloid volume administer 500 05/09/25 10:22 TILLER MAN.MDOT (ml) Colloids volume administered ( ml) Blood Product volume administered (ml) Total IV fluid infused 500 05/09/25 10:22 TILLER MAN.MDOT Anesthesia Postop Eval I: Summary Notes Anesthesia Complication No 05/09/25 10:22 TILLER MAN.MDOT Anesthesia Complication Comment: Post-operative progress note Anesthesia: Postop Eval II Evaluation Mental status: Awake Pain Level: 2 nausea: No Vomiting: No
== END 2025-05-09 11:29 | disposition home or self-care (01) ==
LOC: SDC 08:12 → AC 08:13
PROVIDERS: Referring Provider Urology; Visit Provider Urology
PROC: 0TBB8ZX Excision of Bladder, Via Natural or Artificial Opening Endoscopic, Diagnostic (ICD-10-PCS; CPT 52000; principal; 2025-05-09 09:15)
DX: N39.0 Urinary tract infection, site not specified (principal); F32.A Depression, unspecified; Z87.42 Personal history of other diseases of the female genital tract; Z79.899 Other long term (current) drug therapy
CPT/HCPCS: 52000; 00910; 80048; 81025; 85027; 93005; J2405